=== PATIENT | female | born 1945 | race Caucasian/White ===

== ENCOUNTER → 2017-01-11 | Outpatient (CLI) | payer MEDICARE ==
[2017-01-11 11:30] LABS: Blood Urea Nitrogen 13 mg/dL (7-17); Non-African American GFR(MDRD) >60 (>60 ml/min/1.73 sqM)
--- NOTE | 2017-01-11 13:45 | CT ---
EXAMINATION TYPE: CT facial bones w con DATE OF EXAM: 01/11/2017 COMPARISON: 12/07/2009 HISTORY: 71-year-old female Maxillary pain, sinusitis CT DLP: 599.80 mGycm Automated exposure control for dose reduction was used. TECHNIQUE: Noncontrast axial views of the paranasal sinuses were obtained. Coronal reconstructions pe rformed. FINDINGS: Tiny air-fluid levels in both maxillary sinuses. Trace air fluid in the right sphenoid sinus as well. Otherwise, no significant mucosal thickening within the paranasal sinuses. Reactive bonita- osteogenesis is not seen. There is no destruction of the osseous deluca of the paranasal sinuses. The osteomeatal complexes are patent. Leftward nasal septal deviation. Small bilateral inferior turbinates. The imaged brain and orbits are normal in appearance. Old bilateral nasal bone fractures. Visualized mastoid air cells and middle ear cavities are well pneumatized. Reformatted images confirm above findings. IMPRESSION: 1. Small air-fluid levels in the maxillary sinuses and right sphenoid sinus. Correlate for acute sinu sitis. Otherwise, no significant paranasal sinus disease. 2. Leftward nasal septal deviation. 3. Incidentally, the bilateral inferior turbinates are small.
== END | disposition home or self-care (01) ==
LOC: RADCTMAIN 10:41
PROVIDERS: ATTEND Psychiatry & Neurology Neurology
DX: J34.89 Other specified disorders of nose and nasal sinuses (principal); J34.2 Deviated nasal septum; R68.84 Jaw pain
CPT/HCPCS: 82565; 84520; 70487; 36415; Q9967

== ENCOUNTER → 2017-02-01 | Outpatient (CLI) | payer MEDICARE ==
--- NOTE | 2017-02-05 10:37 | MM ---
Reason for exam: screening (asymptomatic). Last mammogram was performed 1 year ago. History: Patient is postmenopausal and is nulliparous. Reductions of both breasts, 2004. Physical Findings: A clinical breast exam by your physician is recommended on an annual basis and results should be correlated with mammographic findings. MG 3D Screening Mammo W/Cad Bilateral CC and MLO view(s) were taken. Prior study comparison: February 01, 2016, bilateral MG screening mammo w CAD. January 27, 2015, bilateral MG screening mammo w CAD. There are scattered fibroglandular densities. There is no discrete abnormality. No significant changes when compared with prior studies. ASSESSMENT: Negative, BI-RAD 1 RECOMMENDATION: Routine screening mammogram of both breasts in 1 year.
== END | disposition home or self-care (01) ==
LOC: RADMAMWWP 09:35
PROVIDERS: ATTEND Obstetrics & Gynecology
DX: Z12.31 Encounter for screening mammogram for malignant neoplasm of breast (principal)
CPT/HCPCS: 77063; G0202

== ENCOUNTER → 2017-03-23 | Outpatient (CLI) | payer MEDICARE ==
[2017-03-23 10:20] LABS: CH 32.7; CHCM 32.8; HCT 47.2 % (34.0-46.0); HDW 2.33; MCH 31.8 pg (25.0-35.0); MCHC 31.7 g/dL (31.0-37.0); MCV 100.2 fL (80.0-100.0); Mean Platelet Volume 7.7; RBC 4.71 m/uL (3.80-5.40); RDW 13.8 % (11.5-15.5); WBC 4.2 k/uL (3.8-10.6)
== END | disposition home or self-care (01) ==
LOC: LABWHC1 09:44
PROVIDERS: ATTEND Obstetrics & Gynecology
DX: D64.9 Anemia, unspecified (principal)
CPT/HCPCS: 36415; 85027

== ENCOUNTER → 2018-02-07 | Outpatient (CLI) | payer MEDICARE ==
--- NOTE | 2018-02-14 16:16 | MM ---
Reason for exam: screening (asymptomatic). Last mammogram was performed 1 year ago. History: Patient is postmenopausal and is nulliparous. Reductions of both breasts, 2004. MG 3D Screening Mammo W/Cad Bilateral CC and MLO view(s) were taken. XCCL view(s) were taken of the left breast. Prior study comparison: February 01, 2017, bilateral MG 3d screening mammo w/cad. February 01, 2016, bilateral MG screening mammo w CAD. January 27, 2015, bilateral MG screening mammo w CAD. There are scattered fibroglandular densities. There are benign appearing bilateral punctate calcifications. No suspicious abnormality. No significant changes when compared with prior studies. ASSESSMENT: Benign, BI-RAD 2 RECOMMENDATION: Routine screening mammogram of both breasts in 1 year.
== END | disposition home or self-care (01) ==
LOC: RADMAMWWP 10:55
PROVIDERS: ATTEND Obstetrics & Gynecology
DX: Z12.31 Encounter for screening mammogram for malignant neoplasm of breast (principal); Z98.890 Other specified postprocedural states
CPT/HCPCS: 77063; 77067

== ENCOUNTER → 2019-05-01 | Outpatient (CLI) | payer MEDICARE ==
--- NOTE | 2019-05-02 14:29 | MM ---
Reason for exam: screening (asymptomatic). Last mammogram was performed 1 year and 3 months ago. History: Patient is postmenopausal and is nulliparous. Reductions of both breasts, 2004. Physical Findings: A clinical breast exam by your physician is recommended on an annual basis and results should be correlated with mammographic findings. MG 3D Screening Mammo W/Cad Bilateral CC and MLO view(s) were taken. Prior study comparison: February 07, 2018, bilateral MG 3d screening mammo w/cad. February 01, 2017, bilateral MG 3d screening mammo w/cad. There are scattered fibroglandular densities. No suspicious abnormality. No significant changes when compared with prior studies. ASSESSMENT: Negative, BI-RAD 1 RECOMMENDATION: Routine screening mammogram of both breasts in 1 year.
== END | disposition home or self-care (01) ==
LOC: RADMAMWWP 09:13
PROVIDERS: ATTEND Obstetrics & Gynecology
DX: Z12.31 Encounter for screening mammogram for malignant neoplasm of breast (principal)
CPT/HCPCS: 77063; 77067

== ENCOUNTER 2020-04-02 10:00 | Day surgery (SDC) | payer MEDICARE ==
[2020-03-31 09:58] VITALS: BMI 35.2
[~2020-04-02 10:00] MED LIST: LACTATED RINGERS 1,000 ML IV SCH; LIDOCAINE 1% (10MG/ML) FOR IV START INTRADERMA PRN
[2020-04-02 10:45] VITALS: TEMP 98.6
[2020-04-02 11:00] LABS: Glucose,Whole Blood 90 mg/dL (75-99)
[2020-04-02] MEDS ORDERED: PROPOFOL 10 MG/ML 20 ML VIAL IV ONE (12:07)
--- NOTE | 2020-04-02 12:29 | P.PCN ---
Date of Procedure: 04/02/20 Procedure(s) Performed: BRIEF HISTORY: Patient is a 74-year-old pleasant white female scheduled for an elective colonoscopy as a part of evaluation of prior history of colon polyps. Last coloscopy was 5 years ago. PROCEDURE PERFORMED: Colonoscopy with snare polypectomy. PREOPERATIVE DIAGNOSIS: History of colon polyps. IV sedation per Anesthesia. PROCEDURE: After informed consent was obtained, the patient, was brought into the endoscopy unit. IV sedation was administered by Anesthesia under continuous monitoring. Digital rectal examination was normal. Initially the Olympus CF-160 flexible video colonoscope was then inserted in the rectum, gradually advanced into the cecum without any difficulty. Careful examination was performed as the scope was gradually being withdrawn. Ileocecal valve and the appendiceal orifice were visualized and appeared normal. Prep was fair.. Mucosa of the cecum, ascending colon, Appeared normal. In the transverse colon there was a 5 mm polyp removed by snare polypectomy. In the descending colon there was another 5 mm sessile polyp removed by snare polypectomy. Rest of the transverse colon, descending colon, sigmoid colon, and rectum appeared normal. In the proximal rectum there was a 1 cm polyp removed by snare polypectomy.Retroflexion was per formed in the rectum and no lesions were seen. The patient tolerated the procedure well. IMPRESSION: 5 mm transverse colon polyp status post polypectomy 5 millimeters descending colon polyp status post polypectomy 1 cm proximal rectal polyp status post polypectomy RECOMMENDATIONS: Findings of this examination were discussed with the patient as well as her family. She was advised to follow with the biopsy results. If the biopsy shows an adenoma she can have a repeat colonoscopy in 3-5 years.
[2020-04-02 12:45] VITALS: BP 138/72; PULSE 77; RESP 18
== END 2020-04-02 13:27 | disposition home or self-care (01) ==
LOC: ORWHC2ENDO 10:00
PROVIDERS: ATTEND Internal Medicine Gastroenterology
DX: Z12.11 Encounter for screening for malignant neoplasm of colon (principal); D12.4 Benign neoplasm of descending colon; D12.3 Benign neoplasm of transverse colon; D12.8 Benign neoplasm of rectum; E78.5 Hyperlipidemia, unspecified; E07.9 Disorder of thyroid, unspecified; K21.9 Gastro-esophageal reflux disease without esophagitis; Z86.010 Personal history of colon polyps; Z88.0 Allergy status to penicillin; Z88.2 Allergy status to sulfonamides; Z88.1 Allergy status to other antibiotic agents; Z79.899 Other long term (current) drug therapy; Z79.890 Hormone replacement therapy; Z98.890 Other specified postprocedural states; Z90.49 Acquired absence of other specified parts of digestive tract; Z90.89 Acquired absence of other organs
CPT/HCPCS: 88305; 45385; J2704

== ENCOUNTER → 2020-05-21 | Outpatient (CLI) | payer MEDICARE ==
--- NOTE | 2020-05-24 10:32 | MM ---
Reason for exam: screening (asymptomatic). Last mammogram was performed 1 year and 1 month ago. History: Patient is postmenopausal and is nulliparous. Reductions of both breasts, 2004. Physical Findings: A clinical breast exam by your physician is recommended on an annual basis and results should be correlated with mammographic findings. MG 3D Screening Mammo W/Cad Bilateral CC and MLO view(s) were taken. Prior study comparison: May 01, 2019, bilateral MG 3d screening mammo w/cad. February 07, 2018, bilateral MG 3d screening mammo w/cad. There are scattered fibroglandular densities. There is no discrete abnormality. No significant changes when compared with prior studies. ASSESSMENT: Negative, BI-RAD 1 RECOMMENDATION: Routine screening mammogram of both breasts in 1 year.
== END | disposition home or self-care (01) ==
LOC: RADMAMWWP 08:51
PROVIDERS: ATTEND Obstetrics & Gynecology
DX: Z12.31 Encounter for screening mammogram for malignant neoplasm of breast (principal)
CPT/HCPCS: 77063; 77067

== ENCOUNTER → 2020-05-25 | Outpatient (CLI) | payer MEDICARE ==
--- NOTE | 2020-05-25 11:00 | ECHOF ---
Referral Reason:R06.02 SOB R60.9 edema MEASUREMENTS -------- HEIGHT: 160.0 cm WEIGHT: 97.5 kg BP: IVSd: 1.4 cm (0.6 - 1.1) LVIDd: 3.4 cm (3.9 - 5.3) LVPWd: 1.4 cm (0.6 - 1.1) EDV(Teich): 46 ml IVSs: 1.6 cm LVIDs: 2.4 cm LVPWs: 1.7 cm %IVS Thck: 14 % ESV(Teich): 20 ml EF(Teich): 56 % %FS: 29 % SV(Teich): 26 ml LA Diam: 0.9 cm (2.7 - 3.8) RVIDd: 2.1 cm (< 3.3) IVC: 17.24 mm LALs A4C: 4.9 cm LAAs A4C: 15.4 cm LAESV A-L A4C: 41 ml LAESV MOD A4C: 39 ml LALs A2C: 5.0 cm LAAs A2C: 19.2 cm LAESV A-L A2C: 62 ml LAESV MOD A2C: 59 ml LAESV(A-L): 51 ml LAESV Index (A-L): 25.42 ml/m Ao Diam: 2.8 cm (2.0 - 3.7) LA Diam: 3.0 cm (2.7 - 3.8) AV Cusp: 1.8 cm (1.5 - 2.6) EPSS: 2.0 cm MV E Placido: 0.68 m/s MV DecT: 174 ms MV Dec Moca: 3.9 m/s MV A Placido: 0.87 m/s MV E/A Ratio: 0.78 MV PHT: 50 ms MR Vmax: 1.04 m/s MR maxP.35 mmHg AV Vmax: 1.07 m/s AV maxP.56 mmHg TR Vmax: 1.76 m/s TR maxP.38 mmHg RAP: 5.00 mmHg RVSP: 17.38 mmHg MV EF SLOPE: 60.67 mm/s (70 - 150) MV EXCURSION: 11.45 mm (> 18.000) FINDINGS -------- This was a technically adequate study. The left ventricular size is normal. There is moderate concentric left ventricular hypertrophy. O verall left ventricular systolic function is normal with, an EF between 55 - 60 %. The diastolic fi lling pattern is normal for the age of the patient 10.09. The right ventricle is normal in size. The global wall thickness of the right ventricle is mildly e nlarged. The left atrial size is normal. Normal LA size by volume 22+/-6 ml/m2. The right atrial size is normal. The aortic valve is trileaflet and appears structurally normal. The mitral valve is normal. There is trace mitral regurgitation. The tricuspid valve appears structurally normal. Trace tricuspid regurgitation present. Right ck tricular systolic pressure is normal at < 35 mmHg. There is no pulmonic regurgitation present. The aortic root size is normal. Normal inferior vena cava with normal inspiratory collapse consistent with estimated right atrial pre ssure of 5 mmHg. There is a small, generalized pericardial effusion present. CONCLUSIONS -------- 1. The left ventricular size is normal. 2. There is moderate concentric left ventricular hypertrophy. 3. Overall left ventricular systolic function is normal with, an EF between 55 - 60 %. 4. The diastolic filling pattern is normal for the age of the patient 10.09 5. The global wall thickness of the right ventricle is mildly enlarged. 6. There is trace mitral regurgitation. 7. Trace tricuspid regurgitation present. 8. There is a small, generalized pericardial effusion present. B[employer]LEY MANAGER: Dyana Montenegro, [facility]
--- NOTE | 2020-05-25 13:19 | XR ---
EXAMINATION TYPE: XR chest 2V DATE OF EXAM: 05/25/2020 COMPARISON: 12/05/2014 HISTORY: 75-year-old female shortness of breath TECHNIQUE: PA and lateral views FINDINGS: The cardiomediastinal silhouette and pulmonary vasculature are within normal limits. Mild tortuosity of the thoracic aorta. Some strandy atelectasis of the left base. No consolidation or pleural effusio n. Accentuated midthoracic kyphosis. Moderate degenerative disc disease midthoracic spine. IMPRESSION: Strandy left basilar areas of atelectasis. No acute process otherwise seen.
== END | disposition home or self-care (01) ==
LOC: RADECHMAIN 07:56
PROVIDERS: ATTEND Family Medicine
DX: I31.3 Pericardial effusion (noninflammatory) (principal); I51.7 Cardiomegaly; J98.11 Atelectasis
CPT/HCPCS: 71046; 93306

== ENCOUNTER → 2020-08-13 | Outpatient (CLI) | payer MEDICARE ==
--- NOTE | 2020-08-13 15:45 | CT ---
CT CHEST FOR PULMONARY EMBOLISM. EXAMINATION TYPE: CT angio chest DATE OF EXAM: 08/13/2020 INDICATION: Dyspnea upon exertion. CT DLP: 463.8 mGycm, Automated exposure control for dose reduction was used. CONTRAST: Patient injected with 80ml mL of Isovue 370. COMPARISON: None TECHNIQUE: CT of the chest is performed on a spiral scan at 2 mm thick sections. Study is performed with intravenous contrast timed for evaluation for pulmonary embolism. This will limit additional po rtions of the evaluation. 3-D MIP images reconstructed by the technologist are reviewed on the compu ter in the coronal and sagittal planes. FINDINGS: No persistent filling defects are evident to suggest an acute pulmonary embolism. No mediastinal or hilar adenopathy enlarged by CT criteria is evident. The ascending aorta diameter at the level of the main pulmonary artery is 3.4 cm. The main pulmonary artery diameter at the bifur cation is 2.7 cm. Minimal streak atelectasis may be within the posterior right lung base. Limited CT section through the upper abdomen are unremarkable. IMPRESSIONS: 1. No acute pulmonary embolism.
== END | disposition home or self-care (01) ==
LOC: RADCTMAIN 14:41
PROVIDERS: ATTEND Internal Medicine
DX: R06.09 Other forms of dyspnea (principal)
CPT/HCPCS: 82565; 84520; 71275; 36415; Q9967

== ENCOUNTER → 2021-05-23 | Outpatient (CLI) | payer MEDICARE ==
--- NOTE | 2021-05-23 20:42 | BD ---
EXAMINATION TYPE: Axial Bone Density DATE OF EXAM: 05/23/2021 COMPARISON: NONE CLINICAL HISTORY:osteopenia Height: 5'2 1/2 Weight: 212 FRAX RISK QUESTIONS: Family History (Parent hip fracture): y Secondary Osteoporosis: RISK FACTORS HISTORY OF: Family History of Osteoporosis: y Postmenopausal woman: y MEDICATIONS: Prednisone or other steroids: How Long: Thyroid Medications: Which medication: Levothyroxine How Lon years Osteoporosis Medications: Which medication: How Long: Additional Medications: Additional History: EXAM MEASUREMENTS: Bone mineral densitometry was performed using the readeo System. Bone mineral density as measured about the Lumbar spine is: ----- L1-L4(G/cm2): 1.196 T Score Values are as follows: ----- L2: 0.3 ----- L3: 0.0 ----- L4: -0.6 ----- L1-L4: 0.1 Bone mineral density about the R hip (g/cm2): 0.771 Bone mineral density about the L hip (g/cm2): 0.771 T Score values are as follows: -----R Neck: -1.9 -----L Neck: -1.9 -----R Total: -1.1 -----L Total: -1.4 IMPRESSION: Osteopenia (T Score between -2.5 and -1). There is slightly increased risk of fracture and the patient may be considered for treatment. Re-Screen 2-5 years. NOTE: T-SCORE=SD OF THE YOUNG ADULT MEAN.
--- NOTE | 2021-05-24 14:19 | MM ---
Reason for exam: screening (asymptomatic). Last mammogram was performed 1 year ago. History: Patient is postmenopausal and is nulliparous. Reductions of both breasts, 2004. Physical Findings: A clinical breast exam by your physician is recommended on an annual basis and results should be correlated with mammographic findings. MG 3D Screening Mammo W/Cad Bilateral CC and MLO view(s) were taken. Prior study comparison: May 21, 2020, bilateral MG 3d screening mammo w/cad. May 01, 2019, bilateral MG 3d screening mammo w/cad. There are scattered fibroglandular densities. There are benign appearing round calcifications bilaterally. There is no discrete abnormality. ASSESSMENT: Benign, BI-RAD 2 RECOMMENDATION: Routine screening mammogram of both breasts in 1 year.
== END | disposition home or self-care (01) ==
LOC: RADMAMWWP 12:33
PROVIDERS: ATTEND Obstetrics & Gynecology
DX: Z12.31 Encounter for screening mammogram for malignant neoplasm of breast (principal); Z78.0 Asymptomatic menopausal state; R92.1 Mammographic calcification found on diagnostic imaging of breast; M85.88 Other specified disorders of bone density and structure, other site
CPT/HCPCS: 77063; 77067; 77080

== ENCOUNTER → 2022-05-24 | Outpatient (CLI) | payer MEDICARE ==
--- NOTE | 2022-05-24 16:06 | MM ---
Reason for Exam: Screening (asymptomatic). Last screening mammogram was performed 12 month(s) ago. Patient History: Menarche at age 15. Patient has no children. Postmenopausal. 2003, Bilateral Reduction. Risk Values: Ayde 5 year model risk: 2.0%. NCI Lifetime model risk: 4.2%. Prior Study Comparison: 05/01/2019 Bilateral Screening Mammogram, [facility]. 05/21/2020 Bilateral Screening Mammogram, [facility]. 05/23/2021 Bilateral Screening Mammogram, [facility]. Tissue Density: The breast tissue is almost entirely fat. Findings: Analyzed By CAD. There is no suspicious group of microcalcifications or new suspicious mass in either breast. Overall Assessment: Negative, BI-RAD 1 Management: Screening Mammogram of both breasts in 1 year. A clinical breast exam by your physician is recommended on an annual basis and results should be correlated with mammographic findings. [facility] will attempt to contact patient to return for supplemental views and ultrasound if indicated. Electronically signed and approved by: Valeriy Arango DO
== END | disposition home or self-care (01) ==
LOC: RADMAMWWP 08:50
PROVIDERS: ATTEND Obstetrics & Gynecology
DX: Z12.31 Encounter for screening mammogram for malignant neoplasm of breast (principal); Z78.0 Asymptomatic menopausal state
CPT/HCPCS: 77063; 77067

== ENCOUNTER → 2023-05-25 | Outpatient (CLI) | payer MEDICARE ==
--- NOTE | 2023-05-28 07:53 | MM ---
Reason for Exam: Screening (asymptomatic). Last screening mammogram was performed 12 month(s) ago. Patient History: Menarche at age 15. Patient has no children. Postmenopausal. 2003, Bilateral Reduction. Risk Values: Ayde 5 year model risk: 2.0%. NCI Lifetime model risk: 4.0%. Prior Study Comparison: 05/21/2020 Bilateral Screening Mammogram, [facility]. 05/23/2021 Bilateral Screening Mammogram, [facility]. 05/24/2022 Bilateral MG 3D screening mammo w/cad, [facility]. Tissue Density: There are scattered fibroglandular densities. Findings: Analyzed By CAD. There is no suspicious group of microcalcifications or new suspicious mass. Overall Assessment: Negative, BI-RAD 1 Management: Screening Mammogram of both breasts in [address] [facility] will attempt to contact patient to return for supplemental views and ultrasound if indicated. Patient should continue monthly self-breast exams. A clinical breast exam by your physician is recommended on an annual basis. This exam should not preclude additional follow-up of suspicious palpable abnormalities. Note on Ayde scores and lifetime risk: 1. A Ayde score greater than 3% is considered moderate risk. If this is the case, consider specialist referral to assess eligibility for a risk reducing agent. 2. If overall lifetime risk for the development of breast cancer is 20% or higher, the patient may qualify for future screening with alternating mammogram and breast MRI. Electronically signed and approved by: Valeriy Arango DO
== END | disposition home or self-care (01) ==
LOC: RADMAMWWP 09:58
PROVIDERS: ATTEND Obstetrics & Gynecology
DX: Z12.31 Encounter for screening mammogram for malignant neoplasm of breast (principal); Z78.0 Asymptomatic menopausal state
CPT/HCPCS: 77063; 77067

== ENCOUNTER → 2023-09-05 | Outpatient (CLI) | payer MEDICARE ==
--- NOTE | 2023-09-05 17:35 | CA ---
Transthoracic Echo Report Name: Mee Cohen Age: 78 Gender: F : 1945 Exam Date: 09/05/2023 13:59 Exam Location: [facility] Ht (in): 63 Wt (lb): 233 Ordering Physician: Bri Steele MD Attending/Referring Phys: Bri Steele MD Facilities Manager Kiela Amanda RDCS Procedure CPT: Indications: I26.94 PULM EMBO WO ACUTE I27.23 PULM HTSN LUNG DI Cardiac Hx: Technical Quality: Fair Contrast 1: Total Dose (mL): Contrast 2: Total Dose (mL): MEASUREMENTS (Male / Female) Normal Values 2D ECHO LV Diastolic Diameter PLAX 3.0 cm 4.2 - 5.9 / 3.9 - 5.3 cm LV Systolic Diameter PLAX 2.1 cm IVS Diastolic Thickness 1.4 cm 0.6 - 1.0 / 0.6 - 0.9 cm LVPW Diastolic Thickness 1.8 cm 0.6 - 1.0 / 0.6 - 0.9 cm LV Relative Wall Thickness 1.0 RV Internal Dim ED PLAX 3.5 cm LA Volume 63.0 cm??? 18 - 58 / 22 - 52 cm??? LA Volume Index 28.3 cm???/m??? 16 - 28 cm???/m??? M-MODE Aortic Root Diameter MM 3.4 cm LA Systolic Diameter MM 4.2 cm LA Ao Ratio MM 1.2 AV Cusp Separation MM 1.7 cm DOPPLER AV Peak Velocity 124.4 cm/s AV Peak Gradient 6.2 mmHg AV Mean Velocity 92.9 cm/s AV Mean Gradient 3.7 mmHg AV Velocity Time Integral 24.1 cm LVOT Peak Velocity 100.4 cm/s LVOT Peak Gradient 4.0 mmHg LVOT Velocity Time Integral 19.4 cm MV Area PHT 3.1 cm??? Mitral E Point Velocity 67.1 cm/s Mitral A Point Velocity 91.7 cm/s Mitral E to A Ratio 0.7 MV Deceleration Time 242.1 ms MV E' Velocity 5.9 cm/s Mitral E to MV E' Ratio 11.3 TR Peak Velocity 146.6 cm/s TR Peak Gradient 8.6 mmHg Right Ventricular Systolic Press 13.6 mmHg FINDINGS Left Ventricle Moderately increased left ventricular wall thickness. Left ventricular cavity size normal. Normal left ventricular systolic function with no obvious regional wall motion abnormalities. Left ventricular ejection fraction is estimated at 55-60 %. Right Ventricle Mild right ventricular dilatation. Normal right ventricular global systolic function. Right ventricular systolic pressure within normal limits. Right Atrium Normal right atrial size. Left Atrium Moderately increased left atrial volume. Mildly increased left atrial area. Mitral Valve Structurally normal mitral valve. No mitral stenosis, regurgitation or prolapse. Aortic Valve Trileaflet aortic valve. No aortic valve stenosis or regurgitation. Tricuspid Valve Structurally normal tricuspid valve. Mild tricuspid regurgitation. Pulmonic Valve Structurally normal pulmonic valve. Pericardium No pericardial effusion. Echo free space anterior to the right ventricle likely represents a fat pad. Aorta Normal size aortic root and proximal ascending aorta. CONCLUSIONS Normal LV function Mildly dilated right ventricle Previewed by: Dr. Jay Onofre MD (Electronically Signed) Final Date: 05 September 2023 17:34
== END | disposition home or self-care (01) ==
LOC: RADECHMAIN 13:47
PROVIDERS: ATTEND Family Medicine
DX: I51.7 Cardiomegaly (principal); I26.94 Multiple subsegmental thrombotic pulmonary emboli without acute cor pulmonale; I27.23 Pulmonary hypertension due to lung diseases and hypoxia
CPT/HCPCS: 93306

== ENCOUNTER 2023-10-05 11:49 | Day surgery (SDC) | payer MEDICARE ==
[2023-10-03 09:56] VITALS: BMI 43.3
[2023-10-05] MEDS ORDERED: LIDOCAINE 1% (10MG/ML) FOR IV START INTRADERMA PRN (13:33)
[2023-10-05] MEDS: LACTATED RINGERS 1,000 ML IV SCH (14:01)
[2023-10-05 14:14] VITALS: TEMP 97.6
[2023-10-05] MEDS ORDERED: PROPOFOL 10 MG/ML 20 ML VIAL IV ONE (14:17)
--- NOTE | 2023-10-05 14:36 | P.PCN ---
Date of Procedure: 10/05/23 Procedure(s) Performed: BRIEF HISTORY: Patient is a 78-year-old pleasant White female scheduled for an elective colonoscopy as a part of History of colon polyps. PROCEDURE PERFORMED: Colonoscopy with snare polypectomy. PREOPERATIVE DIAGNOSIS: History of colon polyps IV sedation per Anesthesia. PROCEDURE: After informed consent was obtained, the patient, was brought into the endoscopy unit. IV sedation was administered by Anesthesia under continuous monitoring. Digital rectal examination was normal. Initially the Olympus CF-160 flexible video colonoscope was then inserted in the rectum, gradually advanced into the cecum without any difficulty. Careful examination was performed as the scope was gradually being withdrawn. Ileocecal valve and the appendiceal orifice were visualized and appeared normal. Prep was excellent. Mucosa of the cecum, ascending colon, Appeared normal. In the hepatic flexure there was a 7 mm polyp removed by cold snare polypectomy. In the descending colon there were 2 polyps measuring 5 mm in size removed by cold snare polypectomy. Rest of thetransverse colon, descending colon, sigmoid colon, and rectum appeared normal.In the proximal rectum there was a 3 mm polyp that was removed by cold snare polypectomy.Scattered left sided diverticulosis. Retroflexion was performed in the rectum and no lesions were seen. The patient tolerated the procedure well. IMPRESSION: 7 mm hepatic flexure polyp status post cold snare polypectomy 5 mm 2 ascending colon polyp status post cold snare polypectomy 4 mm proximal rectal polyp status post polypectomy Scattered sigmoid diverticulosis RECOMMENDATIONS: Findings of this examination were discussed with the patient As well as his family.She was advised to follow with the biopsy results. If the biopsies reveale adenoma she can have a repeat colonoscopy in 3 years.
[2023-10-05 15:33] VITALS: BP 114/72; PULSE 78; RESP 18
== END 2023-10-05 15:35 | disposition home or self-care (01) ==
LOC: ORWHC2ENDO 11:49
PROVIDERS: ATTEND Internal Medicine Gastroenterology
DX: Z12.11 Encounter for screening for malignant neoplasm of colon (principal); D12.8 Benign neoplasm of rectum; D12.3 Benign neoplasm of transverse colon; D12.4 Benign neoplasm of descending colon; K57.30 Diverticulosis of large intestine without perforation or abscess without bleeding; E78.5 Hyperlipidemia, unspecified; J44.9 Chronic obstructive pulmonary disease, unspecified; G47.33 Obstructive sleep apnea (adult) (pediatric); E03.9 Hypothyroidism, unspecified; K21.9 Gastro-esophageal reflux disease without esophagitis; I26.99 Other pulmonary embolism without acute cor pulmonale; Z88.1 Allergy status to other antibiotic agents; Z88.0 Allergy status to penicillin; Z86.010 Personal history of colon polyps; Z79.899 Other long term (current) drug therapy; Z79.01 Long term (current) use of anticoagulants; Z79.890 Hormone replacement therapy; Z79.51 Long term (current) use of inhaled steroids
CPT/HCPCS: 88305; 45385; J2704

== ENCOUNTER 2023-12-07 05:37 | Emergency (ER) | payer MEDICARE ==
[2023-12-07 05:44] VITALS: TEMP 97.4
--- NOTE | 2023-12-07 06:47 | ED ---
Abdominal Pain HPI - General Chief Complaint: Abdominal Pain Stated Complaint: abd pain Time Seen by Provider: 12/07/23 05:58 Source: patient, RN notes reviewed Mode of arrival: ambulatory Limitations: no limitations - History of Present Illness Initial Comments: 78-year-old female presents emergency department complaint of abdominal discomfort. Patient states that she had some discomfort and noticed there was a bulge in her umbilical region. Patient states that she had no trauma she states she did have nausea which is resolved no change in bowel habits. Patient states she does have urinary frequency which is unusual for the patient. Patient denies any fevers no back pain no flank pain. Patient denies any chest pain. - Related Data Home Medications Medication Instructions Recorded Confirmed Montelukast [Singulair] 10 mg PO HS 12/05/14 10/05/23 Multivitamins, Thera [Multivitamin 1 tab PO DAILY 12/05/14 10/03/23 (formulary)] Simvastatin [Zocor] 20 mg PO HS 12/05/14 10/05/23 Zolpidem [Ambien] 10 mg PO HS 12/05/14 10/05/23 Levothyroxine Sodium [Synthroid] 50 mcg PO QAM 03/31/20 10/03/23 Calcium Carbonate [Calcium] 1,200 mg PO DAILY 08/18/22 10/03/23 Cetirizine HCl [Zyrtec] 10 mg PO DAILY 08/18/22 10/05/23 Cholecalciferol [Vitamin D3 (25 50 mcg PO DAILY 08/18/22 10/03/23 Mcg = 1000 Iu)] Liothyronine Sodium [Cytomel] 5 mcg PO DAILY@1500 08/18/22 10/05/23 Liothyronine Sodium [Cytomel] 10 mcg PO QAM 08/18/22 10/05/23 cycloSPORINE 0.05% OPHTH SOLN 1 applicator BOTH EYES Q12H 08/18/22 10/03/23 [Restasis] guaiFENesin [Mucinex] 600 mg PO Q12H 08/18/22 10/05/23 Apixaban [Eliquis] 5 mg PO BID 10/03/23 10/03/23 Previous Rx's Medication Instructions Recorded Famotidine [Pepcid] 20 mg PO BID #60 tablet 08/21/22 Allergies Allergy/AdvReac Type Severity Reaction Status Date / Time levofloxacin [From Levaquin] Allergy Swelling Verified 12/07/23 05:38 moxifloxacin HCl Allergy Swelling Verified 12/07/23 05:38 [From Avelox] Sulfa (Sulfonamide Allergy Swelling Verified 12/07/23 05:38 Antibiotics) Review of Systems ROS Statement: Those systems with pertinent positive or pertinent negative responses have been documented in the HPI. ROS Other: All systems not noted in ROS Statement are negative. Past Medical History Past Medical History: Deep Vein Thrombosis (DVT), GERD/Reflux, Hyperlipidemia, Pulmonary Embolus (PE), Thyroid Disorder, Vascular Disorder Additional Past Medical History / Comment(s): Hx colon polyps. Hx PE bilateral lungs 2022. Possible Sleep Apnea. History of Any Multi-Drug Resistant Organisms: None Reported Past Surgical History: Orthopedic Surgery Additional Past Surgical History / Comment(s): Face lift, bilateral knee - torn meniscus repair, bilateral thumb tendons replaced, colonoscopy. Past Anesthesia/Blood Transfusion Reactions: Motion Sickness, Postoperative Nausea & Vomiting (PONV) Additional Past Anesthesia/Blood Transfusion Reaction / Comment(s): No hx blood transfusion. Past Psychological History: No Psychological Hx Reported Smoking Status: Never smoker Past Alcohol Use History: None Reported Past Drug Use History: None Reported - Past Family History Mother Family Medical History: Deep Vein Thrombosis (DVT) Father Family Medical History: Cancer, Deep Vein Thrombosis (DVT) General Exam Limitations: no limitations General appearance: alert, in no apparent distress Head exam: Present: atraumatic, normocephalic, normal inspection Eye exam: Present: normal appearance, PERRL, EOMI. Absent: scleral icterus, conjunctival injection, periorbital swelling ENT exam: Present: normal exam, mucous membranes moist Neck exam: Present: normal inspection, full ROM. Absent: tenderness, meningismus, lymphadenopathy Respiratory exam: Present: normal lung sounds bilaterally. Absent: respiratory distress, wheezes, rales, rhonchi, stridor Cardiovascular Exam: Present: regular rate, normal rhythm, normal heart sounds. Absent: systolic murmur, diastolic murmur, rubs, gallop, clicks Course Vital Signs 12/07/23 12/07/23 05:40 07:43 Temperature 97.4 F L Pulse Rate 78 74 Respiratory 22 17 Rate Blood Pressure 155/87 147/79 O2 Sat by Pulse 95 98 Oximetry Medical Decision Making - Medical Decision Making Was pt. sent in by a medical professional or institution (JESUS Dinh, REGISTERED RESPIRATORY TECHNICIAN, urgent care, hospital, or [facility]...) When possible be specific @ -No Did you speak to anyone other than the patient for history (EMS, parent, family, police, friend...)? What history was obtained from this source @ -No Did you review nursing and triage notes (agree or disagree)? Why? @ -I reviewed and agree with nursing and triage notes Were old charts reviewed (outside hosp., previous admission, EMS record, old EKG, old radiological studies, urgent care reports/EKG's, [facility] records)? Report findings @ -No old charts were reviewed Differential Diagnosis (chest pain, altered mental status, abdominal pain women, abdominal pain men, vaginal bleeding, weakness, fever, dyspnea, syncope, headache, dizziness, GI bleed, back pain, seizure, CVA, palpatations, mental health, musculoskeletal)? @ -Differential Abdominal Pain Women: Appendicitis, Cholecystitis, diverticulosis, ischemic bowel, pancreatitis, hepatitis, UTI, gastroenteritis, AAA, incarcerated hernia, bowel obstruction, constipation, inflammatory bowel, hepatitis, peptic ulcer disease, splenic infarction, perforated viscus, vulvitis, ovarian torsion, PID, kidney stone, placenta abruption, this is not meant to be an all-inclusive list EKG interpreted by me (3pts min.). @ -None X-rays interpreted by me (1pt min.). @ -None done CT interpreted by me (1pt min.). @ -None done U/S interpreted by me (1pt. min.). @ -None done What testing was considered but not performed or refused? (CT, X-rays, U/S, labs)? Why? @ -Considered CT though patient has reducible hernia without tenderness What meds were considered but not given or refused? Why? @ -None Did you discuss the management of the patient with other professionals (professionals i.e. JESUS Dinh, REGISTERED RESPIRATORY TECHNICIAN, lab, RT, psych nurse, community mental health social worker, land sales agent, t eacher, medical corps officer, case loader operator)? Give summary @ -No Was smoking cessation discussed for >3mins.? @ -No Was critical care preformed (if so, how long)? @ -No Were there social determinants of health that impacted care today? How? (Homelessness, low income, unemployed, alcoholism, drug addiction, transportation, low edu. Level, literacy, decrease access to med. care, longterm, rehab)? @ -No Was there de-escalation of care discussed even if they declined (Discuss DNR or withdrawal of care, Hospice)? DNR status @ -No What co-morbidities impacted this encounter? (DM, HTN, Smoking, COPD, CAD, Cance r, CVA, ARF, Chemo, Hep., AIDS, mental health diagnosis, sleep apnea, morbid obesity)? @ -None Was patient admitted / discharged? Hospital course, mention meds given and route, prescriptions, significant lab abnormalities, going to OR and other pertinent info. @ -Discharged patient has a reducible umbilical hernia will follow-up with general surgery patient was complaining urinary frequency urinalysis unremarkable patient vitals are stable she states she has no complaints at this time. Undiagnosed new problem with uncertain prognosis? @ -No Drug Therapy requiring intensive monitoring for toxicity (Heparin, Nitro, Insulin, Cardizem)? @ -No Were any procedures done? @ -No Diagnosis/symptom? @ -Umbilical hernia Acute, or Chronic, or Acute on Chronic? @ -Acute Uncomplicated (without systemic symptoms) or Complicated (systemic symptoms)? @ -Uncomplicated Side effects of treatment? @ -No Exacerbation, Progression, or Severe Exacerbation? @ -No Poses a threat to life or bodily function? How? (Chest pain, [place], [place], pneumonia, PE, COPD, DKA, ARF, appy, cholecystitis, CVA, Diverticulitis, Homicidal, Suicidal, threat to staff... and all critical care pts) @ -No - Lab Data Lab Results 12/07/23 Range/Units 06:28 Urine Color Light Yellow Urine Appearance Clear (Clear) Urine pH 6.5 (5.0-8.0) Ur Specific [place] 1.015 (1.001-1.035) Urine Protein Negative (Negative) Urine Glucose (UA) Negative (Negative) Urine Ketones Negative (Negative) Urine Blood Negative (Negative) Urine Nitrite Negative (Negative) Urine Bilirubin Negative (Negative) Urine Urobilinogen <2.0 (<2.0) mg/dL Ur Leukocyte Esterase Negative (Negative) Disposition Clinical Impression: Umbilical hernia Disposition: HOME SELF-CARE Condition: Stable Instructions (If sedation given, give patient instructions): Umbilical Hernia (ED) Additional Instructions: Please return to the Emergency Department if symptoms worsen or any other concerns. Is patient prescribed a controlled substance at d/c from ED?: No Referrals: Bri Steele MD [Primary Care Provider] - 1-2 days Kulwant Steele MD [Medical Doctor] - 1-2 days Time of Disposition: 07:20
[2023-12-07 07:10] LABS: Appearance,Urine Clear (Clear); Bilirubin,Urine Negative (Negative); Blood,Urine Negative (Negative); Color,Urine Light Yellow; Glucose,Urine (UA) Negative (Negative); Ketones,Urine Negative (Negative); Leukocyte Esterase,Urine Negative (Negative); Nitrite,Urine Negative (Negative); PH, Urine 6.5 (5.0-8.0); Protein,Urine Negative (Negative); Specific Gravity,Urine 1.015 (1.001-1.035); Urobilinogen,Urine <2.0 mg/dL (<2.0)
[2023-12-07 07:44] VITALS: BP 147/79; PULSE 74; RESP 17
== END 2023-12-07 07:47 | disposition home or self-care (01) ==
LOC: EC 05:37
DX: K42.9 Umbilical hernia without obstruction or gangrene (principal); Z88.1 Allergy status to other antibiotic agents; Z88.2 Allergy status to sulfonamides
CPT/HCPCS: 81003; 99284

== ENCOUNTER 2024-02-02 11:54 | Emergency (ER) | payer MEDICARE ==
[2024-02-02 12:04] VITALS: PULSE 85; RESP 20; TEMP 98.2
--- NOTE | 2024-02-02 12:04 | ED ---
Back Pain HPI - General Chief Complaint: Back Pain/Injury Stated Complaint: back pain Time Seen by Provider: 02/02/24 11:55 Source: patient, RN notes reviewed Mode of arrival: EMS Limitations: no limitations - History of Present Illness Initial Comments: This is a 78 year old female who presents to the emergency department for back pain. 4 days ago she had umbilical hernia surgery at [facility]. Later on that day she started to develop pain in the left mid to lower back. Pain has since persisted. She has radiation of pain down the left leg as well. Denies any radiation of pain into the abdomen, nausea, or vomiting. Currently taking Myrtle and Robaxin, however this is not managing this pain. Denies any loss of bowel/bladder control or saddle anesthesia. Wonders if she may have slept wrong following the surgery causing this pain. MD Complaint: back pain - Related Data Home Medications Medication Instructions Recorded Confirmed Montelukast [Singulair] 10 mg PO HS 12/05/14 10/05/23 Multivitamins, Thera [Multivitamin 1 tab PO DAILY 12/05/14 10/03/23 (formulary)] Simvastatin [Zocor] 20 mg PO HS 12/05/14 10/05/23 Zolpidem [Ambien] 10 mg PO HS 12/05/14 10/05/23 Levothyroxine Sodium [Synthroid] 50 mcg PO QAM 03/31/20 10/03/23 Calcium Carbonate [Calcium] 1,200 mg PO DAILY 08/18/22 10/03/23 Cetirizine HCl [Zyrtec] 10 mg PO DAILY 08/18/22 10/05/23 Cholecalciferol [Vitamin D3 (25 50 mcg PO DAILY 08/18/22 10/03/23 Mcg = 1000 Iu)] Liothyronine Sodium [Cytomel] 5 mcg PO DAILY@1500 08/18/22 10/05/23 Liothyronine Sodium [Cytomel] 10 mcg PO QAM 08/18/22 10/05/23 cycloSPORINE 0.05% OPHTH SOLN 1 applicator BOTH EYES Q12H 08/18/22 10/03/23 [Restasis] guaiFENesin [Mucinex] 600 mg PO Q12H 08/18/22 10/05/23 Apixaban [Eliquis] 5 mg PO BID 10/03/23 10/03/23 Previous Rx's Medication Instructions Recorded Famotidine [Pepcid] 20 mg PO BID #60 tablet 08/21/22 Lidocaine 5% Patch [Lidoderm 5% 1 patch TOPICAL DAILY PRN #30 patch 02/02/24 Patch] Meloxicam [Mobic] 15 mg PO DAILY PRN #20 tab 02/02/24 Allergies Allergy/AdvReac Type Severity Reaction Status Date / Time levofloxacin [From Levaquin] Allergy Swelling Verified 02/02/24 12:04 moxifloxacin HCl Allergy Swelling Verified 02/02/24 12:04 [From Avelox] Sulfa (Sulfonamide Allergy Swelling Verified 02/02/24 12:04 Antibiotics) Review of Systems ROS Statement: Those systems with pertinent positive or pertinent negative responses have been documented in the HPI. ROS Other: All systems not noted in ROS Statement are negative. Past Medical History Past Medical History: Deep Vein Thrombosis (DVT), GERD/Reflux, Hyperlipidemia, Pulmonary Embolus (PE), Thyroid Disorder, Vascular Disorder Additional Past Medical History / Comment(s): Hx colon polyps. Hx PE bilateral lungs 2022. Possible Sleep Apnea. History of Any Multi-Drug Resistant Organisms: None Reported Past Surgical History: Orthopedic Surgery Additional Past Surgical History / Comment(s): Face lift, bilateral knee - torn meniscus repair, bilateral thumb tendons replaced, colonoscopy. Past Anesthesia/Blood Transfusion Reactions: Motion Sickness, Postoperative Nausea & Vomiting (PONV) Additional Past Anesthesia/Blood Transfusion Reaction / Comment(s): No hx blood transfusion. Past Psychological History: No Psychological Hx Reported Smoking Status: Never smoker Past Alcohol Use History: None Reported Past Drug Use History: None Reported - Past Family History Mother Family Medical History: Deep Vein Thrombosis (DVT) Father Family Medical History: Cancer, Deep Vein Thrombosis (DVT) General Exam General appearance: alert, in distress Head exam: Present: atraumatic, normocephalic, normal inspection Respiratory exam: Present: normal lung sounds bilaterally. Absent: respiratory distress, wheezes, rales, rhonchi, stridor Cardiovascular Exam: Present: regular rate, normal rhythm, normal heart sounds. Absent: systolic murmur, diastolic murmur, rubs, gallop, clicks GI/Abdominal exam: Present: other (Abdominal incisions appear to be well-healing without any evidence of erythema or drainage to suggest infection) Back exam: Present: other (Tenderness to palpation over the left lower back.) Neurological exam: Present: alert, oriented X3, CN II-XII intact Psychiatric exam: Present: normal affect, normal mood Skin exam: Present: warm, dry, intact, normal color. Absent: rash Course Vital Signs 02/02/24 02/02/24 12:00 16:57 Temperature 98.2 F Pulse Rate 85 85 Respiratory 20 20 Rate Blood Pressure 151/79 156/74 O2 Sat by Pulse 95 98 Oximetry Medical Decision Making - Medical Decision Making This is a 78 year old female who presents to the emergency department for back pain. Was pt. sent in by a medical professional or institution? @ -No Did you speak to anyone other than the patient for history? @ -No Did you review nursing and triage notes? @ -Yes, and I agree, it is accurate with regards to the patient's symptoms. Were old charts reviewed? @ -No Differential Diagnosis? @ -Differential Back Pain: Strain, zoster, cauda equina syndrome, epidural abscess, vertebral osteomyelitis, discitis, fracture, subluxation, disc herniation, DJD, spinal stenosis, dissection, AAA, pancreatitis, peptic ulcer disease, pyelonephritis, kidney stone, this is not meant to be an all-inclusive list. EKG interpreted by me (3pts min.)? @ -Not obtained X-rays interpreted by me (1pt min.)? @ -Not obtained CT interpreted by me (1pt min.)? @ -CT scan of the abdomen and pelvis obtained. My interpretation identifies no evidence of a ureteral calculus. U/S interpreted by me (1pt. min.)? @ -Not obtained What testing was considered but not performed? (CT, X-rays, U/S, labs)? Why? @ -None What meds were considered but not given? Why? @ -None Did you discuss the management of the patient with other professionals? @ -No Did you reconcile home meds? @ -No Was smoking cessation discussed for >3mins.? @ -No Was critical care preformed (if so, how long)? @ -No Were there social determinants of health that impacted care today? How? (Homelessness, low income, unemployed, alcoholism, drug addiction, trans portation, low edu. Level, literacy, decrease access to med. care, [place] [facility], rehab)? @ -No Was there de-escalation of care discussed even if they declined? (Discuss DNR or withdrawal of care, Hospice)? @ -No What co-morbidities impacted this encounter? (DM, HTN, Smoking, COPD, CAD, Cancer, CVA, Hep., AIDS, mental health diagnosis, sleep apnea, morbid obesity)? @ -None Was patient admitted / discharged? @ -Discharged. Lab work unremarkable. Urinalysis has a few white blood cells present but is not otherwise suggestive of infection. CT scan of the abdomen and pelvis reveals no evidence of a ureteral calculus. There are scattered foci of air throughout the anterior abdominal subcutaneous fat and soft tissue stranding at the umbilicus. Patient just had surgery for an umbilical hernia a few days ago, likely accounting for these changes. Incisions appear to be healing well without any evidence for infection. Patient denies any pain over the incisions. Given that pain was much worse with movement, advised that this is likely musculoskeletal in nature. Symptoms were controlled in the emergency department. Patient was well-appearing and ordered pizza for delivery while she was in the emergency department as well. Rx for Mobic and lidocaine patches provided. Patient discharged home stable condition. Case discussed with ED attending Dr. Fierro. Return precautions reviewed in depth, the patient is instructed to return to the emergency department with any new, worsening, or concerning symptoms. Patient verbalized understanding. Undiagnosed new problem with uncertain prognosis? @ -None Drug Therapy requiring intensive monitoring for toxicity (Heparin, Nitro, Insulin, Cardizem)? @ -None Were any procedures done? @ -None Diagnosis/symptom? @ -Lumbar strain, lumbar radiculopathy Acute, or Chronic, or Acute on Chronic? @ -Acute Uncomplicated (without systemic symptoms) or Complicated (systemic symptoms)? @ -Uncomplicated Side effects of treatment? @ -None Exacerbation, Progression, or Severe Exacerbation] @ -Not applicable Poses a threat to life or bodily function? @ -No - Lab Data Result diagrams: 02/02/24 12:16 02/02/24 12:16 Lab Results 02/02/24 02/02/24 02/02/24 Range/Units 12:16 12:16 12:16 WBC 7.7 (3.8-10.6) k/uL RBC 4.02 (3.80-5.40) m/uL Hgb 13.4 (11.4-16.0) gm/dL Hct 41.3 (34.0-46.0) % MCV 102.5 H (80.0-100.0) fL MCH 33.4 (25.0-35.0) pg MCHC 32.6 (31.0-37.0) g/dL RDW 13.8 (11.5-15.5) % Plt Count 250 (150-450) k/uL MPV 7.0 Neutrophils % 80 % Lymphocytes % 11 % Monocytes % 5 % Eosinophils % 4 % Basophils % 0 % Neutrophils # 6.2 (1.3-7.7) k/uL Lymphocytes # 0.8 L (1.0-4.8) k/uL Monocytes # 0.4 (0-1.0) k/uL Eosinophils # 0.3 (0-0.7) k/uL Basophils # 0.0 (0-0.2) k/uL Hypochromasia Slight Macrocytosis Slight Sodium 136 L (137-145) mmol/L Potassium 4.1 (3.5-5.1) mmol/L Chloride 105 (98-107) mmol/L Carbon Dioxide 30 (22-30) mmol/L Anion Gap 1 mmol/L BUN 12 (7-17) mg/dL Creatinine 0.63 (0.52-1.04) mg/dL Est GFR (CKD-EPI)AfAm >90 (>60 ml/min/1.73 sqM) Est GFR (CKD-EPI)NonAf 87 (>60 ml/min/1.73 sqM) Glucose 108 H (74-99) mg/dL Plasma Lactic Acid Jonathon (0.7-2.0) mmol/L Calcium 8.7 (8.4-10.2) mg/dL Total Bilirubin 1.8 H (0.2-1.3) mg/dL AST 20 (14-36) U/L ALT 16 (4-34) U/L Alkaline Phosphatase 78 (38-126) U/L Total Protein 5.4 L (6.3-8.2) g/dL Albumin 3.2 L (3.5-5.0) g/dL Urine Color Colorless Urine Appearance Clear (Clear) Urine pH 6.5 (5.0-8.0) Ur Specific [place] 1.006 (1.001-1.035) Urine Protein Negative (Negative) Urine Glucose (UA) Negative (Negative) Urine Ketones 1+ H (Negative) Urine Blood Negative (Negative) Urine Nitrite Negative (Negative) Urine Bilirubin Negative (Negative) Urine Urobilinogen <2.0 (<2.0) mg/dL Ur Leukocyte Esterase Small H (Negative) Urine RBC <1 (0-5) /hpf Urine WBC 11 H (0-5) /hpf Ur Squamous Epith Cells 1 (0-4) /hpf Urine Mucus Rare H (None) /hpf 02/02/24 Range/Units 12:16 WBC (3.8-10.6) k/uL RBC (3.80-5.40) m/uL Hgb (11.4-16.0) gm/dL Hct (34.0-46.0) % MCV (80.0-100.0) fL MCH (25.0-35.0) pg MCHC (31.0-37.0) g/dL RDW (11.5-15.5) % Plt Count (150-450) k/uL MPV Neutrophils % % Lymphocytes % % Monocytes % % Eosinophils % % Basophils % % Neutrophils # (1.3-7.7) k/uL Lymphocytes # (1.0-4.8) k/uL Monocytes # (0-1.0) k/uL Eosinophils # (0-0.7) k/uL Basophils # (0-0.2) k/uL Hypochromasia Macrocytosis Sodium (137-145) mmol/L Potassium (3.5-5.1) mmol/L Chloride (98-107) mmol/L Carbon Dioxide (22-30) mmol/L Anion Gap mmol/L BUN (7-17) mg/dL Creatinine (0.52-1.04) mg/dL Est GFR (CKD-EPI)AfAm (>60 ml/min/1.73 sqM) Est GFR (CKD-EPI)NonAf (>60 ml/min/1.73 sqM) Glucose (74-99) mg/dL Plasma Lactic Acid Jonathon 0.8 (0.7-2.0) mmol/L Calcium (8.4-10.2) mg/dL Total Bilirubin (0.2-1.3) mg/dL AST (14-36) U/L ALT (4-34) U/L Alkaline Phosphatase (38-126) U/L Total Protein (6.3-8.2) g/dL Albumin (3.5-5.0) g/dL Urine Color Urine Appearance (Clear) Urine pH (5.0-8.0) Ur Specific [place] (1.001-1.035) Urine Protein (Negative) Urine Glucose (UA) (Negative) Urine Ketones (Negative) Urine Blood (Negative) Urine Nitrite (Negative) Urine Bilirubin (Negative) Urine Urobilinogen (<2.0) mg/dL Ur Leukocyte Esterase (Negative) Urine RBC (0-5) /hpf Urine WBC (0-5) /hpf Ur Squamous Epith Cells (0-4) /hpf Urine Mucus (None) /hpf - Radiology Data Radiology results: report reviewed, image reviewed Disposition Clinical Impression: Strain of lumbar region, Lumbar radiculopathy Disposition: HOME SELF-CARE Instructions (If sedation given, give patient instructions): Acute Low Back Pain (ED) Additional Instructions: Return to the emergency department with any new, worsening, or concerning symptoms. Take the Mobic once daily with Tylenol as needed for pain relief. You can also apply the lidocaine patches daily. Continue to take your Myrtle sparingly when your pain is the most severe. Follow up with your primary care provider in 1-2 days. Prescriptions: Lidocaine 5% Patch [Lidoderm 5% Patch] 1 patch TOPICAL DAILY PRN #30 patch PRN Reason: Pain Meloxicam [Mobic] 15 mg PO DAILY PRN #20 tab PRN Reason: Pain Is patient prescribed a controlled substance at d/c from ED?: No Referrals: Bri Steele MD [Primary Care Provider] - 1-2 days Time of Disposition: 16:31
[2024-02-02] MEDS: KETOROLAC 15 MG/ML 1 ML VIAL IVP STA ×2 (12:29→15:36)
[2024-02-02] MEDS: ORPHENADRINE 30 MG/ML 2 ML VIAL IVP STA (12:30)
[2024-02-02] MEDS: MORPHINE SULFATE 4 MG/ML SYRINGE IVP STA (12:31)
[2024-02-02] MEDS: LIDOCAINE 4% PATCH TOPICAL ONE (12:31)
[2024-02-02 12:32] LABS: Basophils % (A) 0 %; Eosinophils # (A) 0.3 k/uL (0-0.7); Eosinophils % (A) 4 %; HCT 41.3 % (34.0-46.0); HGB 13.4 gm/dL (11.4-16.0); Hypochromasia Slight; Lymphocytes # (A) 0.8 k/uL (1.0-4.8); Lymphocytes % (A) 11 %; MCH 33.4 pg (25.0-35.0); MCHC 32.6 g/dL (31.0-37.0); MCV 102.5 fL (80.0-100.0); Macrocytosis Slight; Monocytes # (A) 0.4 k/uL (0-1.0); Monocytes % (A) 5 %; Neutrophils # (A) 6.2 k/uL (1.3-7.7); Neutrophils % (A) 80 %; Platelet Count 250 k/uL (150-450); RBC 4.02 m/uL (3.80-5.40); RDW 13.8 % (11.5-15.5); WBC 7.7 k/uL (3.8-10.6)
[2024-02-02] MEDS: SODIUM CHLORIDE 0.9% 1,000 ML IV STA (12:32)
[2024-02-02 12:40] LABS: ALT 16 U/L (4-34); AST 20 U/L (14-36); African American GFR (CKD) >90 (>60 ml/min/1.73 sqM); Albumin 3.2 g/dL (3.5-5.0); Alkaline Phosphatase 78 U/L (38-126); Anion Gap 1 mmol/L; Blood Urea Nitrogen 12 mg/dL (7-17); Calcium 8.7 mg/dL (8.4-10.2); Carbon Dioxide 30 mmol/L (22-30); Chloride 105 mmol/L (98-107); Glucose 108 mg/dL (74-99); Non-African American GFR(CKD) 87 (>60 ml/min/1.73 sqM); Potassium 4.1 mmol/L (3.5-5.1); Sodium 136 mmol/L (137-145); Total Bilirubin 1.8 mg/dL (0.2-1.3); Total Protein 5.4 g/dL (6.3-8.2)
--- NOTE | 2024-02-02 14:07 | CT ---
EXAMINATION TYPE: CT abdomen pelvis wo con DATE OF EXAM: 02/02/2024 COMPARISON: None HISTORY: 78-year-old female Left side/flank pain CT DLP: 1252 mGycm. Automated exposure control for dose reduction was used. TECHNIQUE: Contiguous axial scanning of the abdomen and pelvis without IV contrast. Coronal and sagit carol reconstructions performed. FINDINGS: Heart upper limits of normal in size. Prominent patchy and strandy bibasilar densities, right greater than left. Likely areas of atelectasis and scarring. No pleural effusion. Noncontrast appearance of the liver, adrenal glands, right kidney, spleen, and pancreas within normal limits. Cholecystectomy clips. 1.6 cm parapelvic cyst left kidney. No nephrolithiasis or hydronephrosis is seen. There appears to be an incidental duplex left renal collecting system. The 2 ureters appear to come together distally. No dilated small bowel, free fluid, or free air. No mesenteric or retroperitoneal lymphadenopathy. Scattered subcutaneous foci near all of the anterior abdominal wall. Scattered fat stranding is also present. There is more focal fat stranding and skin thickening at the umbilicus. Some of the fat str anding extends deep to the abdominal wall muscle layer to the underlying omental fat. Normal appendix. Mild to moderate stool burden. Left-sided colonic diverticulosis, more extensive wit hin the sigmoid colon. No pericolonic inflammatory change. Bladder is urine distended. Uterus retroverted. Pelvic phleboliths. Both ovaries are visualized. No a bnormal fluid collection in the pelvis or pelvic lymphadenopathy. Bones: Advanced spondylotic changes lumbar spine. Degenerative grade 2 anterolisthesis L4-L5. IMPRESSION: 1. Scattered foci of air throughout the anterior abdominal subcutaneous fat. More focal soft tissue s tranding in skin thickening at the umbilicus. Correlate for cellulitis. 2. Note that the inflammatory change/cellulitis extends into the intra-abdominal space involving the underlying omentum. 3. Incidental duplex left renal collecting system without nephrolithiasis or hydronephrosis. 4. Sigmoid diverticulosis without acute diverticulitis.
[2024-02-02 14:26] LABS: Appearance,Urine Clear (Clear); Bilirubin,Urine Negative (Negative); Blood,Urine Negative (Negative); Color,Urine Colorless; Glucose,Urine (UA) Negative (Negative); Ketones,Urine 1+ (Negative); Leukocyte Esterase,Urine Small (Negative); Mucus,Urine Rare /hpf; Nitrite,Urine Negative (Negative); PH, Urine 6.5 (5.0-8.0); Protein,Urine Negative (Negative); RBC,Urine <1 /hpf (0-5); Specific Gravity,Urine 1.006 (1.001-1.035); Squamous Epithelial Cell,Urine 1 /hpf (0-4); Urobilinogen,Urine <2.0 mg/dL (<2.0); WBC,Urine 11 /hpf (0-5)
[2024-02-02] MEDS: DEXAMETHASONE SOD PHOSPHATE 10 MG/ML 1 ML VIAL IVP STA (15:35)
[2024-02-02] MEDS: HYDROmorphone 1 MG/ML 1 ML SYRINGE IVP STA (16:42)
[2024-02-02 16:58] VITALS: BP 156/74
== END 2024-02-02 16:59 | disposition home or self-care (01) ==
LOC: EC 11:54
DX: S39.012A Strain of muscle, fascia and tendon of lower back, initial encounter (principal); M54.16 Radiculopathy, lumbar region; Z88.1 Allergy status to other antibiotic agents; Z88.2 Allergy status to sulfonamides; X58.XXXA Exposure to other specified factors, initial encounter
CPT/HCPCS: 36415; 80053; 83605; 85025; 81001; 74176; 99284; 96374; 96375 ×5; 96376; 96361; J2270; J1100; J2360; J3360; J1170; J1885

== ENCOUNTER → 2024-02-28 | Outpatient (CLI) | payer MEDICARE ==
--- NOTE | 2024-02-28 09:04 | MR ---
EXAMINATION TYPE: MR lumbar spine wo con DATE OF EXAM: 02/28/2024 COMPARISON: NONE HISTORY: Low back pain into left side TECHNIQUE: T1 and T2 axial and sagittal images of the lumbar spine are submitted. FINDINGS: There is no abnormal signal seen within the visualized spinal cord or paraspinal soft tissu es. At L1-2 there is severe degenerative disc disease with discogenic marrow changes. Broad-based disc bu lging greater paracentrally and laterally to left. Moderate bilateral foraminal encroachment. At L2-3 there is there is a large disc herniation with extruded fragment extending posterior to the L 2 vertebral segment encroachment on the lateral recess and left neural foramina. Severe facet arthrop athy with severe left-sided foraminal encroachment. There is mild canal stenosis. At L3-4 there is severe degenerative disc disease with hypertrophic change of the facet joints and li gamentum flavum. Moderate to severe canal stenosis and moderate bilateral foraminal encroachment. At L4-5 there is moderate degenerative disc disease with grade 1 anterolisthesis which appears degene rative secondary to advanced facet arthropathy. Hypertrophic change of the ligamentum flavum with mod erate to severe canal stenosis and moderate bilateral foraminal encroachment. At L5-S1 there is facet arthropathy but no disc herniation, canal stenosis, or foraminal encroachment . Atrophic change of the musculature. Aorta of normal caliber. Benign-appearing parapelvic left renal c yst. IMPRESSION: 1. Large disc herniation L2-L3 with large extruded or sequestered fragment extending superiorly along the left posterior margin of the L2 vertebral segment. It encroaches upon the left lateral recess an d neural foramina resulting in canal stenosis and severe left-sided foraminal encroachment. 2. Multilevel severe degenerative change, multilevel canal stenosis and foraminal encroachment as dis cussed above.
== END | disposition home or self-care (01) ==
LOC: RADMRIMAIN 07:15
PROVIDERS: ATTEND Orthopaedic Surgery
DX: M47.26 Other spondylosis with radiculopathy, lumbar region (principal); M48.061 Spinal stenosis, lumbar region without neurogenic claudication; M47.812 Spondylosis without myelopathy or radiculopathy, cervical region; M51.16 Intervertebral disc disorders with radiculopathy, lumbar region
CPT/HCPCS: 72148

== ENCOUNTER 2024-04-08 13:12 | Emergency (ER) | payer MEDICARE ==
[2024-04-08] MEDS: MORPHINE SULFATE 4 MG/ML SYRINGE IVP STA (15:20)
[2024-04-08] MEDS: ORPHENADRINE 30 MG/ML 2 ML VIAL IVP STA (15:20)
[2024-04-08 15:27] VITALS: RESP 18
--- NOTE | 2024-04-08 16:41 | ED ---
Back Pain HPI - General Chief Complaint: Back Pain/Injury Stated Complaint: Back Pain Time Seen by Provider: 04/08/24 14:30 Source: patient, EMS, RN notes reviewed - History of Present Illness Initial Comments: 78-year-old female presenting with low back pain x 4 hours. States she has a extensive history of back pain and degenerative disc disease. States she was at the store this morning when she gradually started to feel lower back spasms, came home to lay down, and reports symptoms worsened. States this feels similar in quality to her lower back pain but worse in severity. Denies numbness, ti ngling, weakness of the legs bilaterally. Denies bowel or bladder incontinence. Denies fevers, chills, IV drug use. She does take Eliquis for history of blood clots. Abdominal pain, chest pain, shortness of breath, mid scapular pain - Related Data Home Medications Medication Instructions Recorded Confirmed Montelukast [Singulair] 10 mg PO HS 12/05/14 04/08/24 Multivitamins, Thera [Multivitamin 1 tab PO DAILY@1200 12/05/14 04/08/24 (formulary)] Simvastatin [Zocor] 20 mg PO HS 12/05/14 04/08/24 Levothyroxine Sodium [Synthroid] 50 mcg PO DIRECTED 03/31/20 04/08/24 Calcium Carbonate [Calcium] 600 mg PO DAILY@1200 08/18/22 04/08/24 Cetirizine HCl [Zyrtec] 10 mg PO DAILY@1200 08/18/22 04/08/24 Cholecalciferol [Vitamin D3 (25 25 mcg PO DAILY@1200 08/18/22 04/08/24 Mcg = 1000 Iu)] Liothyronine Sodium [Cytomel] 5 mcg PO BID 08/18/22 04/08/24 cycloSPORINE 0.05% OPHTH SOLN 1 applicator BOTH EYES Q12H 08/18/22 04/08/24 [Restasis] guaiFENesin [Mucinex] 600 mg PO BID 08/18/22 04/08/24 Apixaban [Eliquis] 5 mg PO BID 10/03/23 04/08/24 Folic Acid 0.4 mg PO DAILY@1200 04/08/24 04/08/24 Ondansetron [Zofran] 4 mg PO TID PRN 04/08/24 04/08/24 Sennosides [Senokot] 34.4 mg PO HS 04/08/24 04/08/24 Spironolactone [Aldactone] 100 mg PO DAILY 04/08/24 04/08/24 Triamcinolone 0.1% Cream [Kenalog 1 applicatio TOPICAL BID PRN 04/08/24 04/08/24 0.1% Cream] Zolpidem [Ambien] 10 mg PO HS 04/08/24 04/08/24 polyethylene glycoL 3350 [Miralax] 17 gm PO DAILY 04/08/24 04/08/24 Previous Rx's Medication Instructions Recorded Famotidine [Pepcid] 20 mg PO BID #60 tablet 08/21/22 Lidocaine 5% Patch [Lidoderm 5% 1 patch TOPICAL DAILY PRN #30 patch 02/02/24 Patch] Cyclobenzaprine [Flexeril] 10 mg PO TID PRN #15 tab 04/08/24 Lidocaine 5% Patch [Lidoderm 5% 1 patch TOPICAL DAILY PRN 7 Days 04/08/24 Patch] #7 patch Allergies Allergy/AdvReac Type Severity Reaction Status Date / Time levofloxacin [From Levaquin] Allergy Swelling Verified 04/08/24 16:38 moxifloxacin HCl Allergy Swelling Verified 04/08/24 16:38 [From Avelox] Sulfa (Sulfonamide Allergy Swelling Verified 04/08/24 16:38 Antibiotics) aspartame AdvReac headaches Verified 04/08/24 16:38 Review of Systems ROS Statement: Those systems with pertinent positive or pertinent negative responses have been documented in the HPI. ROS Other: All systems not noted in ROS Statement are negative. Past Medical History Past Medical History: Deep Vein Thrombosis (DVT), GERD/Reflux, Hyperlipidemia, Pulmonary Embolus (PE), Thyroid Disorder, Vascular Disorder Additional Past Medical History / Comment(s): Hx colon polyps. Hx PE bilateral lungs 2022. Possible Sleep Apnea. History of Any Multi-Drug Resistant Organisms: None Reported Past Surgical History: Orthopedic Surgery Additional Past Surgical History / Comment(s): Face lift, bilateral knee - torn meniscus repair, bilateral thumb tendons replaced, colonoscopy. Past Anesthesia/Blood Transfusion Reactions: Motion Sickness, Postoperative Nausea & Vomiting (PONV) Additional Past Anesthesia/Blood Transfusion Reaction / Comment(s): No hx blood transfusion. Past Psychological History: No Psychological Hx Reported Smoking Status: Never smoker Past Alcohol Use History: None Reported Past Drug Use History: None Reported - Past Family History Mother Family Medical History: Deep Vein Thrombosis (DVT) Father Family Medical History: Cancer, Deep Vein Thrombosis (DVT) General Exam General appearance: alert, in no apparent distress Head exam: Present: atraumatic, normocephalic, normal inspection Eye exam: Present: normal appearance, PERRL, EOMI. Absent: scleral icterus, conjunctival injection, periorbital swelling Neck exam: Present: normal inspection. Absent: tenderness, meningismus, lymphadenopathy Respiratory exam: Present: normal lung sounds bilaterally. Absent: respiratory distress, wheezes, rales, rhonchi, stridor Cardiovascular Exam: Present: regular rate, normal rhythm, normal heart sounds. Absent: systolic murmur, diastolic murmur, rubs, gallop, clicks GI/Abdominal exam: Present: soft, normal bowel sounds. Absent: distended, tenderness, guarding, rebound, rigid Extremities exam: Present: normal inspection, full ROM, normal capillary refill. Absent: tenderness, pedal edema, joint swelling, calf tenderness Back exam: Present: normal inspection, full ROM, tenderness (Lumbar spine tenderness), paraspinal tenderness (Bilateral paraspinal tenderness in lumbar region). Absent: CVA tenderness (R), CVA tenderness (L), rash noted Neurological exam: Present: alert, oriented X3 Psychiatric exam: Present: normal affect, normal mood Skin exam: Present: warm, dry, intact, normal color. Absent: rash Course Vital Signs 04/08/24 04/08/24 04/08/24 13:56 15:26 17:35 Temperature 97.7 F 98.2 F Pulse Rate 69 78 63 Respiratory 16 18 18 Rate Blood Pressure 112/66 133/65 119/57 O2 Sat by Pulse 95 96 95 Oximetry Medical Decision Making - Medical Decision Making Was pt. sent in by a medical professional or institution (, [place], [employer], urgent care, hospital, or jail...) When possible be specific @ -No Did you speak to anyone other than the patient for history (EMS, parent, family, police, friend...)? What history was obtained from this source @ -No Did you review nursing and triage notes (agree or disagree)? Why? @ -I reviewed and agree with nursing and triage notes Were old charts reviewed (outside hosp., previous admission, EMS record, old EKG, old radiological studies, urgent care reports/EKG's, jail records)? Report findings @ -No old charts were reviewed Differential Diagnosis (chest pain, altered mental status, abdominal pain women, abdominal pain men, vaginal bleeding, weakness, fever, dyspnea, syncope, headache, dizziness, GI bleed, back pain, seizure, CVA, palpatations, mental health, musculoskeletal)? @ -Differential Back Pain: Strain, zoster, cauda equina syndrome, epidural abscess, vertebral osteomyelitis, discitis, fracture, subluxation, disc herniation, DJD, spinal stenosis, dissection, AAA, pancreatitis, peptic ulcer disease, pyelonephritis, kidney stone, this is not meant to be an all-inclusive list. EKG interpreted by me (3pts min.). @ -None X-rays interpreted by me (1pt min.). @ -None done CT interpreted by me (1pt min.). @ -None done U/S interpreted by me (1pt. min.). @ -None done What testing was considered but not performed or refused? (CT, X-rays, U/S, labs)? Why? @ -Imaging considered however deferred as patient has history of musculoskeletal back pain and reports this feels similar in quality, no red flag symptoms, there is reproducible tenderness on examination What meds were considered but not given or refused? Why? @ -None Did you discuss the management of the patient with other professionals (professionals i.e. , PA, [employer], lab, RT, psych nurse, protective services social worker, aerospace technician, teacher, patient safety officer, binder caser)? Give summary @ -No Was smoking cessation discussed for >3mins.? @ -No Was critical care preformed (if so, how long)? @ -No Were there social determinants of health that impacted care today? How? (Homelessness, low income, unemployed, alcoholism, drug addiction, transportation, low edu. Level, literacy, decrease access to med. care, senior living, rehab)? @ -No Was there de-escalation of care discussed even if they declined (Discuss DNR or withdrawal of care, Hospice)? DNR status @ -No What co-morbidities impacted this encounter? (DM, HTN, Smoking, COPD, CAD, Cancer, CVA, ARF, Chemo, Hep., AIDS, mental health diagnosis, sleep apnea, morbid obesity)? @ -None Was patient admitted / discharged? Hospital course, mention meds given and route, prescriptions, significant lab abnormalities, going to OR and other pertinent info. @ -Discharged. This is a 78-year-old female with history of degenerative disc disease presenting with low back pain x 4 hours ago. No red flag symptoms. Vital signs within acceptable limits. Neurovascularly intact. There is reproducible tenderness on examination. Imaging considered at this time but deferred due to likely musculoskeletal in nature, no red flag symptoms. Patient was provided with analgesics. Upon reevaluation, patient reports symptoms have completely resolved and feels stable for discharge. Advise close follow-up with PCP within the week for reevaluation. Strict return precautions discussed as well as supportive care. Patient is agreeable to plan. Case was discussed with my ED attending Dr. Jurado. Patient discharged in stable condition. Undiagnosed new problem with uncertain prognosis? @ -No Drug Therapy requiring intensive monitoring for toxicity (Heparin, Nitro, Insulin, Cardizem)? @ -No Were any procedures done? @ -No Diagnosis/symptom? @ -Low back strain Acute, or Chronic, or Acute on Chronic? @ -Acute Uncomplicated (without systemic symptoms) or Complicated (systemic symptoms)? @ -Uncomplicated Side effects of treatment? @ -No Exacerbation, Progression, or Severe Exacerbation? @ -No Poses a threat to life or bodily function? How? (Chest pain, [place], SC, pneumonia, PE, COPD, DKA, ARF, appy, cholecystitis, CVA, Diverticulitis, Homicidal, Suicidal, threat to staff... and all critical care pts) @ -No Disposition Clinical Impression: Low back strain Disposition: HOME SELF-CARE Condition: Stable Instructions (If sedation given, give patient instructions): Acute Low Back Pain (ED) Additional Instructions: Follow-up with PCP in 1 to 3 days for reevaluation. Take muscle relaxers and use lidocaine patches as needed for pain. Please return to the Emergency Department if symptoms worsen or any other concerns. Prescriptions: Cyclobenzaprine [Flexeril] 10 mg PO TID PRN #15 tab PRN Reason: Muscle Spasm Lidocaine 5% Patch [Lidoderm 5% Patch] 1 patch TOPICAL DAILY PRN 7 Days #7 patch PRN Reason: Pain Is patient prescribed a controlled substance at d/c from ED?: No Referrals: Bri Steele MD [Primary Care Provider] - 1-2 days Time of Disposition: 16:41
[2024-04-08 17:36] VITALS: BP 119/57; PULSE 63; TEMP 98.2
== END 2024-04-08 17:36 | disposition home or self-care (01) ==
LOC: EC 13:12
CPT/HCPCS: 96374; 96375; 99284

== ENCOUNTER 2024-04-09 12:06 | Emergency (ER) | payer MEDICARE ==
[2024-04-09 12:21] VITALS: RESP 18
--- NOTE | 2024-04-09 12:35 | ED ---
Back Pain [facility] - General Chief Complaint: Extremity Problem,Nontraumatic Stated Complaint: L side nerve pain Time Seen by Provider: 04/09/24 12:15 Source: patient, EMS, RN notes reviewed Mode of arrival: ambulatory Limitations: physical limitation - History of Present Illness Initial Comments: This is a 78-year-old female who presents to the emergency department for lower back pain and left lower extremity pain. Patient states that she had surgery in December that caused nerve damage and subsequent back pain. She has been dealing with intermittent pain in her lower back. However, yesterday she started to develop pain in the left buttocks rating down the left leg. Pain resolved in the emergency department she was discharged home. States that after the morphine wore off she tried taking [place] and Flexeril, but did not have any relief, prompting her to come back to the emergency department for evaluation. Denies any loss of bowel/bladder control or saddle anesthesia. States that she does have an appointment with Dr. Resendiz, orthopedics, tomorrow for further evaluation. MD Complaint: back pain - Related Data Home Medications Medication Instructions Recorded Confirmed Montelukast [Singulair] 10 mg PO HS 12/05/14 04/08/24 Multivitamins, Thera [Multivitamin 1 tab PO DAILY@1200 12/05/14 04/08/24 (formulary)] Simvastatin [Zocor] 20 mg PO HS 12/05/14 04/08/24 Levothyroxine Sodium [Synthroid] 50 mcg PO DIRECTED 03/31/20 04/08/24 Calcium Carbonate [Calcium] 600 mg PO DAILY@1200 08/18/22 04/08/24 Cetirizine HCl [Zyrtec] 10 mg PO DAILY@1200 08/18/22 04/08/24 Cholecalciferol [Vitamin D3 (25 25 mcg PO DAILY@1200 08/18/22 04/08/24 Mcg = 1000 Iu)] Liothyronine Sodium [Cytomel] 5 mcg PO BID 08/18/22 04/08/24 cycloSPORINE 0.05% OPHTH SOLN 1 applicator BOTH EYES Q12H 08/18/22 04/08/24 [Restasis] guaiFENesin [Mucinex] 600 mg PO BID 08/18/22 04/08/24 Apixaban [Eliquis] 5 mg PO BID 10/03/23 04/08/24 Folic Acid 0.4 mg PO DAILY@1200 04/08/24 04/08/24 Ondansetron [Zofran] 4 mg PO TID PRN 04/08/24 04/08/24 Sennosides [Senokot] 34.4 mg PO HS 04/08/24 04/08/24 Spironolactone [Aldactone] 100 mg PO DAILY 04/08/24 04/08/24 Triamcinolone 0.1% Cream [Kenalog 1 applicatio TOPICAL BID PRN 04/08/24 04/08/24 0.1% Cream] Zolpidem [Ambien] 10 mg PO HS 04/08/24 04/08/24 polyethylene glycoL 3350 [Miralax] 17 gm PO DAILY 04/08/24 04/08/24 Previous Rx's Medication Instructions Recorded Famotidine [Pepcid] 20 mg PO BID #60 tablet 08/21/22 Lidocaine 5% Patch [Lidoderm 5% 1 patch TOPICAL DAILY PRN #30 patch 02/02/24 Patch] Cyclobenzaprine [Flexeril] 10 mg PO TID PRN #15 tab 04/08/24 Lidocaine 5% Patch [Lidoderm 5% 1 patch TOPICAL DAILY PRN 7 Days 04/08/24 Patch] #7 patch methocarbamoL [Robaxin-750] 1,500 mg PO TID PRN #30 tab 04/09/24 predniSONE 50 mg PO DAILY 5 Days #5 tab 04/09/24 Allergies Allergy/AdvReac Type Severity Reaction Status Date / Time levofloxacin [From Levaquin] Allergy Swelling Verified 04/08/24 16:38 moxifloxacin HCl Allergy Swelling Verified 04/08/24 16:38 [From Avelox] Sulfa (Sulfonamide Allergy Swelling Verified 04/08/24 16:38 Antibiotics) aspartame AdvReac headaches Verified 04/08/24 16:38 Review of Systems ROS Statement: Those systems with pertinent positive or pertinent negative responses have been documented in the HPI. ROS Other: All systems not noted in ROS Statement are negative. Past Medical History Past Medical History: Deep Vein Thrombosis (DVT), GERD/Reflux, Hyperlipidemia, Pulmonary Embolus (PE), Thyroid Disorder, Vascular Disorder Additional Past Medical History / Comment(s): Hx colon polyps. Hx PE bilateral lungs 2022. Possible Sleep Apnea. History of Any Multi-Drug Resistant Organisms: None Reported Past Surgical History: Orthopedic Surgery Additional Past Surgical History / Comment(s): Face lift, bilateral knee - torn meniscus repair, bilateral thumb tendons replaced, colonoscopy. Past Anesthesia/Blood Transfusion Reactions: Motion Sickness, Postoperative Nausea & Vomiting (PONV) Additional Past Anesthesia/Blood Transfusion Reaction / Comment(s): No hx blood transfusion. Past Psychological History: No Psychological Hx Reported Smoking Status: Never smoker Past Alcohol Use History: None Reported Past Drug Use History: None Reported - Past Family History Mother Family Medical History: Deep Vein Thrombosis (DVT) Father Family Medical History: Cancer, Deep Vein Thrombosis (DVT) General Exam Limitations: physical limitation General appearance: alert, in no apparent distress Head exam: Present: atraumatic, normocephalic, normal inspection Respiratory exam: Present: normal lung sounds bilaterally. Absent: respiratory distress, wheezes, rales, rhonchi, stridor Cardiovascular Exam: Present: regular rate, normal rhythm, normal heart sounds. Absent: systolic murmur, diastolic murmur, rubs, gallop, clicks Back exam: Present: other (Tenderness over the left lower back and left buttocks) Neurological exam: Present: alert, oriented X3, CN II-XII intact Psychiatric exam: Present: normal affect, normal mood Skin exam: Present: warm, dry, intact, normal color. Absent: rash Course Vital Signs 04/09/24 04/09/24 12:14 15:02 Temperature 97.5 F L 97.7 F Pulse Rate 86 80 Respiratory 18 18 Rate Blood Pressure 164/88 150/86 O2 Sat by Pulse 95 96 Oximetry Medical Decision Making - Medical Decision Making This is a 78 year old female who presents to the emergency department for back pain. Was pt. sent in by a medical professional or institution? @ -No Did you speak to anyone other than the patient for history? @ -No Did you review nursing and triage notes? @ -Yes, and I agree, it is accurate with regards to the patient's symptoms. Were old charts reviewed? @ -MRI of the lumbar spine from 02/08/2024 demonstrating large disc herniation at L2-L3 and other changes resulting in canal stenosis and left-sided foraminal encroachment. Differential Diagnosis? @ -Differential Back Pain: Strain, zoster, cauda equina syndrome, epidural abscess, vertebral osteomyelitis, discitis, fracture, subluxation, disc herniation, DJD, spinal stenosis, dissection, AAA, pancreatitis, peptic ulcer disease, pyelonephritis, kidney stone, this is not meant to be an all-inclusive list. EKG interpreted by me (3pts min.)? @ -Not obtained X-rays interpreted by me (1pt min.)? @ -Not obtained CT interpreted by me (1pt min.)? @ -Not obtained U/S interpreted by me (1pt. min.)? @ -Not obtained What testing was considered but not performed? (CT, X-rays, U/S, labs)? Why? @ -None What meds were considered but not given? Why? @ -None Did you discuss the management of the patient with other professionals? @ -No Did you reconcile home meds? @ -No Was smoking cessation discussed for >3mins.? @ -No Was critical care preformed (if so, how long)? @ -No Were there social determinants of health that impacted care today? How? (Homelessness, low income, unemployed, alcoholism, drug addiction, transportation, low edu. Level, literacy, decrease access to med. care, [facility], rehab)? @ -No Was there de-escalation of care discussed even if they declined? (Discuss DNR or withdrawal of care, Hospice)? @ -No What co-morbidities impacted this encounter? (DM, HTN, Smoking, COPD, CAD, Cancer, CVA, Hep., AIDS, mental health diagnosis, sleep apnea, morbid obesity)? @ -DDD Was patient admitted / discharged? @ -Discharged. When the patient arrived to the emergency department her pain had essentially resolved due to the morphine she was given by EMS. She did have an MRI in January demonstrating a large disc herniation and severe left-sided foraminal encroachment, likely causing her current radiculopathy. Given that there were no new injuries and she just had an MRI, no additional imaging was obtained. She also has no red flag signs or symptoms. Her pain did begin to flareup again and this was managed with additional pain medication. Admission was offered for pain control given that she is not having any relief with the medication she is taking at home, which currently consists of hydrocodone, Flexeril, and ibuprofen. Patient however declined and states that she would rat her go home and follow-up with Dr. Resendiz tomorrow. She was started on a course of steroids to be taken over the next 5 days to help with the sciatica and her muscle relaxant was switched to Robaxin to see if that offers any more benefit. Patient discharged home in stable condition. Case discussed with ED attending Dr. Jurado. This case was discussed in detail with the attending ED physician. Presentation, findings, and treatment plan discussed in detail as well. Undiagnosed new problem with uncertain prognosis? @ -None Drug Therapy requiring intensive monitoring for toxicity (Heparin, Nitro, Insulin, Cardizem)? @ -None Were any procedures done? @ -None Diagnosis/symptom? @ -Left lumbar radiculopathy Acute, or Chronic, or Acute on Chronic? @ -Acute Uncomplicated (without systemic symptoms) or Complicated (systemic symptoms)? @ -Uncomplicated Side effects of treatment? @ -None Exacerbation, Progression, or Severe Exacerbation] @ -Not applicable Poses a threat to life or bodily function? @ -The pain is having an impact on her ability to function. Disposition Clinical Impression: Left lumbar radiculopathy Disposition: HOME SELF-CARE Instructions (If sedation given, give patient instructions): Lumbar Radiculopathy (ED) Additional Instructions: Return to the emergency department with any new, worsening, or concerning symptoms. Take the prednisone daily for 5 days. Take the Robaxin as 1 to 2 tablets up to 3-4 times daily. Do not take this with the Flexeril, take 1 or the other. Follow up with Dr. Resendiz tomorrow. Prescriptions: predniSONE 50 mg PO DAILY 5 Days #5 tab methocarbamoL [Robaxin-750] 1,500 mg PO TID PRN #30 tab PRN Reason: Pain Is patient prescribed a controlled substance at d/c from ED?: No Referrals: Bri Steele MD [Primary Care Provider] - 1-2 days Forms: Who Do I Call?, Community Resources, Help In The Home, Personal Abstract Writer Time of Disposition: 14:41
[2024-04-09] MEDS: DEXAMETHASONE SOD PHOSPHATE 10 MG/ML 1 ML VIAL IVP STA (13:28)
[2024-04-09] MEDS: HYDROmorphone 1 MG/ML 1 ML SYRINGE IVP STA (13:32)
[2024-04-09] MEDS: KETOROLAC 15 MG/ML 1 ML VIAL IVP STA (13:34)
[2024-04-09 15:04] VITALS: BP 150/86; PULSE 80; TEMP 97.7
== END 2024-04-09 15:04 | disposition home or self-care (01) ==
LOC: EC 12:06
CPT/HCPCS: 96374; 96375; 99284

== ENCOUNTER 2024-04-16 09:53 | Inpatient (IN) | payer MEDICARE ==
--- NOTE | 2024-04-16 13:09 | CT ---
EXAMINATION TYPE: CT lumbar spine wo con CT DLP: 1516.8 mGycm, Automated exposure control for dose reduction was used. DATE OF EXAM: 04/16/2024 12:41 PM COMPARISON: MRI lumbar spine 02/28/2024, CT abdomen and pelvis 02/02/2024. CLINICAL INDICATION:Female, 78 years old with history of pain; PHH, Chronic lower back pain TECHNIQUE: Multiple axial images were obtained from the midportion of T11 through the sacroiliac yolanda nts. Soft tissue and bone windows in coronal and sagittal planes were obtained and reviewed. Contrast used: none. Oral contrast used: none. FINDINGS: Alignment: There are 5 lumbar type vertebral bodies. Grade 1 anterolisthesis of L4 on L5 without evid ence of pars defects. Bone: No evidence of fracture is identified. Degenerative changes of both SI joints. Discs: Multilevel endplate sclerosis with vacuum disc disease and osteophytosis. Most pronounced at L 1-L2. T12-L1: No spinal canal or neural foraminal stenosis is identified. L1-L2: Broad-based disc bulge with mild effacement of the anterior thecal sac. Bilateral facet arthro danial with moderate bilateral neural foraminal stenosis. L2-L3: Redemonstration of large left paracentral superior disc extrusion extending into the left fora heath zone. This results in moderate anterior left spinal canal stenosis. There is again complete eff acement of the left neural foramen. Right neural foramen is patent. L3-L4: Broad-based disc bulge with bilateral facet arthropathy and ligamentum flavum thickening contr ibute to moderate to severe central canal stenosis again. Moderate left and [id number] right ne ural foraminal stenosis. L4-L5: Grade 1 anterolisthesis with uncovering of the disc. Broad-based disc bulge with bilateral fac et arthropathy and ligamentum flavum buckling. This results in severe central canal stenosis again an d [id number] bilateral neural foraminal stenosis. L5-S1: No spinal canal or neural foraminal stenosis is identified. Other: Cholecystectomy clips. IMPRESSION: 1. No evidence for spinal fracture. 2. Redemonstration of large disc herniation at L2-L3 with cranial extrusion. Results in complete effa cement of the left neural foramen at this level. Moderate central canal stenosis at this level. Overa ll similar appearance to prior MRI 02/28/2024. Spinal surgery consultation is recommended. 3. Moderate multilevel degenerative disc disease and facet arthropathy. There is moderate to severe c entral canal stenosis at L3-L4 and severe central canal stenosis at L4-L5. 4. Similar grade 1 anterolisthesis of L4 on L5 without pars defects. [facility], , 04/16/2024 1:07 PM
[2024-04-16] MEDS ORDERED: NALOXONE 0.4 MG/ML 1 ML VIAL IV PRN (13:11)
--- NOTE | 2024-04-16 13:17 | ED ---
General Adult HPI - General Chief complaint: Back Pain/Injury Stated complaint: back pain Time Seen by Provider: 04/16/24 11:15 Source: patient, EMS, RN notes reviewed, old records reviewed Mode of arrival: EMS Limitations: physical limitation - History of Present Illness Initial comments: Patient is a 78-year-old female who presents emergency department complaining of acute on chronic back pain. Is due to have surgery tomorrow with Dr. Redd valdez. Pain has been worse at the day today. Patient called EMS to come in for evaluation. Dr. Resendiz called ahead and asked that the patient admitted under his service for the intractable back pain with plan for OR tomorrow. Requested medicine consult. Patient currently has no significant pain. Received morphine on arrival. Denies any lower extremity paralysis, saddle paresthesias, urinary or bowel incontinence or retention. Symptoms have been ongoing for quite some time is been having worsening back pain lately with due surgery tomorrow. Presents for admission with plan for OR tomorrow. - Related Data Home Medications Medication Instructions Recorded Confirmed Montelukast [Singulair] 10 mg PO HS 12/05/14 04/16/24 Multivitamins, Thera [Multivitamin 1 tab PO DAILY@1200 12/05/14 04/16/24 (formulary)] Simvastatin [Zocor] 20 mg PO HS 12/05/14 04/16/24 Calcium Carbonate [Calcium] 600 mg PO DAILY@1200 08/18/22 04/16/24 Cetirizine HCl [Zyrtec] 10 mg PO DAILY@1200 08/18/22 04/16/24 Cholecalciferol [Vitamin D3 (25 25 mcg PO DAILY@1200 08/18/22 04/16/24 Mcg = 1000 Iu)] Liothyronine Sodium [Cytomel] 5 mcg PO BID 08/18/22 04/16/24 cycloSPORINE 0.05% OPHTH SOLN 1 applicator BOTH EYES Q12H 08/18/22 04/16/24 [Restasis] guaiFENesin [Mucinex] 600 mg PO BID 08/18/22 04/16/24 Folic Acid 0.4 mg PO DAILY@1200 04/08/24 04/16/24 Ondansetron [Zofran] 4 mg PO TID PRN 04/08/24 04/16/24 Sennosides [Senokot] 34.4 mg PO HS 04/08/24 04/16/24 Spironolactone [Aldactone] 100 mg PO DAILY 04/08/24 04/16/24 Triamcinolone 0.1% Cream [Kenalog 1 applic TOPICAL BID PRN 04/08/24 04/16/24 0.1% Cream] Zolpidem [Ambien] 10 mg PO HS 04/08/24 04/16/24 polyethylene glycoL 3350 [Miralax] 17 gm PO DAILY 04/08/24 04/16/24 Gabapentin 300 mg PO TID 04/16/24 04/16/24 Levothyroxine Sodium [Synthroid] 75 mcg PO DAILY 04/16/24 04/16/24 predniSONE [Deltasone] 20 mg PO BID 04/16/24 04/16/24 Previous Rx's Medication Instructions Recorded Famotidine [Pepcid] 20 mg PO BID #60 tablet 08/21/22 Cyclobenzaprine [Flexeril] 10 mg PO TID PRN #15 tab 04/08/24 Lidocaine 5% Patch [Lidoderm 5% 1 patch TOPICAL DAILY PRN 7 Days 04/08/24 Patch] #7 patch methocarbamoL [Robaxin-750] 1,500 mg PO TID PRN #30 tab 04/09/24 Allergies Allergy/AdvReac Type Severity Reaction Status Date / Time levofloxacin [From Levaquin] Allergy Swelling Verified 04/16/24 13:05 moxifloxacin HCl Allergy Swelling Verified 04/16/24 13:05 [From Avelox] Sulfa (Sulfonamide Allergy Swelling Verified 04/16/24 13:05 Antibiotics) aspartame AdvReac headaches Verified 04/16/24 13:05 Review of Systems ROS Statement: Those systems with pertinent positive or pertinent negative responses have been documented in the HPI. Review of Systems: CONST: Denies fever EYES: Denies blurry vision ENT: Denies nasal congestion C/V: Denies Chest pain RESP: Denies shortness of breath GI: Denies abdominal pain : Denies dysuria SKIN: Denies rash. MSK: Endorses back pain NEURO: Denies headache ROS Other: All systems not noted in ROS Statement are negative. Past Medical History Past Medical History: Deep Vein Thrombosis (DVT), GERD/Reflux, Hyperlipidemia, Pulmonary Embolus (PE), Thyroid Disorder, Vascular Disorder Additional Past Medical History / Comment(s): Hx colon polyps. Hx PE bilateral lungs 2022. Possible Sleep Apnea. History of Any Multi-Drug Resistant Organisms: None Reported Past Surgical History: Orthopedic Surgery Additional Past Surgical History / Comment(s): Face lift, bilateral knee - torn meniscus repair, bilateral thumb tendons replaced, colonoscopy. Past Anesthesia/Blood Transfusion Reactions: Motion Sickness, Postoperative Nausea & Vomiting (PONV) Additional Past Anesthesia/Blood Transfusion Reaction / Comment(s): No hx blood transfusion. Past Psychological History: No Psychological Hx Reported Smoking Status: Never smoker Past Alcohol Use History: None Reported Past Drug Use History: None Reported - Past Family History Mother Family Medical History: Deep Vein Thrombosis (DVT) Father Family Medical History: Cancer, Deep Vein Thrombosis (DVT) General Exam - General Exam Comments Initial Comments: General: Appears in no acute distress. HEAD: Normal with no signs of head trauma. EYES: EOMI ENT: Hearing grossly intact, normal oropharynx. RESPIRATORY: Clear breath sounds bilaterally. No wheezes, rales, or rhonchi. C/V: Regular rate and rhythm. S1 and S2 auscultated, no edema, peripheral pulses 2+ and intact throughout ABD: Abd is soft, nontender, nondistended EXT: No step-offs or deformities of the spine palpated. Midline lumbar spine tenderness to palpation which is chronic for the patient. SKIN: No rashes or lesions observed on exposed skin. NEURO: Alert and oriented x 4. No focal deficits. Limitations: physical limitation Course Vital Signs 04/16/24 10:05 Temperature 97.8 F Pulse Rate 73 Respiratory 16 Rate Blood Pressure 126/80 O2 Sat by Pulse 95 Oximetry Medical Decision Making - Medical Decision Making Was pt. sent in by a medical professional or institution (, PA, [employer] PREPARATION WORKER, urgent care, hospital, or group home...) When possible be specific @ -No Did you speak to anyone other than the patient for history (EMS, parent, family, police, friend...)? What history was obtained from this source @ -No Did you review nursing and triage notes (agree or disagree)? Why? @ -I reviewed and agree with nursing and triage notes Were old charts reviewed (outside hosp., previous admission, EMS record, old EKG, old radiological studies, urgent care reports/EKG's, group home records)? Report findings @ -Old imaging reviewed and compared with today's imaging which shows chronic findings. Differential Diagnosis (chest pain, altered mental status, abdominal pain women, abdominal pain men, vaginal bleeding, weakness, fever, dyspnea, syncope, headache, dizziness, GI bleed, back pain, seizure, CVA, palpatations, mental health, musculoskeletal)? @ -Differential Back Pain: Strain, zoster, cauda equina syndrome, epidural abscess, vertebral osteomyelitis, discitis, fracture, subluxation, disc herniation, DJD, spinal stenosis, dissection, AAA, pancreatitis, peptic ulcer disease, pyelonephritis, kidney stone, this is not meant to be an all-inclusive list. EKG interpreted by me (3pts min.). @ -As above X-rays interpreted by me (1pt min.). @ -None done CT interpreted by me (1pt min.). @ -CT lumbar spine reveals the chronic degenerative changes of the lumbar spine and disc herniation. U/S interpreted by me (1pt. min.). @ -None done What testing was considered but not performed or refused? (CT, X-rays, U/S, labs)? Why? @ -None What meds were considered but not given or refused? Why? @ -None Did you discuss the management of the patient with other professionals (professionals i.e. , PA, [employer]PARATION WORKER, lab, RT, psych nurse, sexual assault social worker, laborer wrecking and salvaging, teacher, gifts officer, case consultant)? Give summary @ -Discussed with the admitting provider, Dr. Resendiz who requested the admi ssion onto his service. Requested medicine consult. Spoke with Dr. Britton of [facility] who accepted the consult. Was smoking cessation discussed for >3mins.? @ -No Was critical care preformed (if so, how long)? @ -No Were there social determinants of health that impacted care today? How? (Homelessness, low income, unemployed, alcoholism, drug addiction, transportation, low edu. Level, literacy, decrease access to med. care, senior living, rehab)? @ -No Was there de-escalation of care discussed even if they declined (Discuss DNR or withdrawal of care, Hospice)? DNR status @ -No What co-morbidities impacted this encounter? (DM, HTN, Smoking, COPD, CAD, Cancer, CVA, ARF, Chemo, Hep., AIDS, mental health diagnosis, sleep apnea, morbid obesity)? @ -Chronic lumbar spine pain Was patient admitted / discharged? Hospital course, mention meds given and route, prescriptions, significant lab abnormalities, going to OR and other pertinent info. @ -Patient presents for admission to Dr. Resendiz for surgery tomorrow. She has had worsening pain. No red flag symptoms for cauda equina syndrome. Vitals within acceptable limits. We will obtain basic labs, CT lumbar spine, admit the patient. She was in agreement this plan. Dr. Resendiz called ahead and requested admission under his service. Patient made n.p.o. after midnight. Medicine will be consulted. EKG shows no signs of acute ischemia. Imaging redemonstrates chronic findings of the lumbar spine. Labs remarkable for mild leukocytosis of 14. Remainder the labs unremarkable. Patient will be admitted at this time. Spoke with the consulting team for medicine, Dr. Britton who accepted the consult. Undiagnosed new problem with uncertain prognosis? @ -No Drug Therapy requiring intensive monitoring for toxicity (Heparin, Nitro, Insulin, Cardizem)? @ -No Were any procedures done? @ -No Diagnosis/symptom? @ -Lumbar disc herniation, mechanical back pain Acute, or Chronic, or Acute on Chronic? @ -Acute on chronic Uncomplicated (without systemic symptoms) or Complicated (systemic symptoms)? @ -Complicated Side effects of treatment? @ -No Exacerbation, Progression, or Severe Exacerbation? @ -No Poses a threat to life or bodily function? How? (Chest pain, [place], [place], pneumonia, PE, COPD, DKA, ARF, appy, cholecystitis, CVA, Diverticulitis, Homicidal, Suicidal, threat to staff... and all critical care pts) @ -Yes - Lab Data Result diagrams: 04/16/24 12:46 04/16/24 12:46 Lab Results 04/16/24 04/16/24 04/16/24 Range/Units 12:46 12:46 12:46 WBC 14.3 H (3.8-10.6) k/uL RBC 4.84 (3.80-5.40) m/uL Hgb 16.1 H (11.4-16.0) gm/dL Hct 48.2 H (34.0-46.0) % MCV 99.7 (80.0-100.0) fL MCH 33.3 (25.0-35.0) pg MCHC 33.4 (31.0-37.0) g/dL RDW 13.4 (11.5-15.5) % Plt Count 312 (150-450) k/uL MPV 7.9 Neutrophils % 90 % Lymphocytes % 6 % Monocytes % 3 % Eosinophils % 0 % Basophils % 0 % Neutrophils # 12.8 H (1.3-7.7) k/uL Lymphocytes # 0.9 L (1.0-4.8) k/uL Monocytes # 0.5 (0-1.0) k/uL Eosinophils # 0.1 (0-0.7) k/uL Basophils # 0.0 (0-0.2) k/uL Manual Slide Review Performed PT 10.1 (10.0-12.5) sec INR 0.9 (<1.2) APTT 21.4 L (22.0-30.0) sec Sodium 138 (137-145) mmol/L Potassium 5.3 H (3.5-5.1) mmol/L Chloride 103 (98-107) mmol/L Carbon Dioxide 27 (22-30) mmol/L Anion Gap 8 mmol/L BUN 19 H (7-17) mg/dL Creatinine 0.57 (0.52-1.04) mg/dL Est GFR (CKD-EPI)AfAm >90 (>60 ml/min/1.73 sqM) Est GFR (CKD-EPI)NonAf >90 (>60 ml/min/1.73 sqM) Glucose 121 H (74-99) mg/dL Calcium 9.3 (8.4-10.2) mg/dL Total Bilirubin 1.3 (0.2-1.3) mg/dL AST 30 (14-36) U/L ALT 18 (4-34) U/L Alkaline Phosphatase 55 (38-126) U/L Total Protein 6.1 L (6.3-8.2) g/dL Albumin 3.8 (3.5-5.0) g/dL - EKG Data -: EKG Interpreted by Me EKG Comments: 12-lead Electrocardiogram Interpretation Note EKG was reviewed and interpreted by myself. 12-lead ECG performed at 1151 is interpreted by me as revealing normal sinus rhythm at a rate of 66 beats per minute. [place] is left deviated. [place] interval is 163 ms, QRS duration is 80 ms, QTc is 4 and 28 ms.. There were no ST or T wave abnormalities to suggest myocardial ischemia or injury. R wave progression across the precordium was satisfactory. By my interpretation this EKG is non-diagnostic for acute ischemia. Disposition Clinical Impression: Mechanical back pain, Lumbar disc herniation Disposition: ADMITTED IP TO THIS HOSP Condition: Stable Time of Disposition: 13:00
[2024-04-16 13:33] LABS: Basophils % (A) 0 %; Eosinophils # (A) 0.1 k/uL (0-0.7); Eosinophils % (A) 0 %; HCT 48.2 % (34.0-46.0); HGB 16.1 gm/dL (11.4-16.0); Lymphocytes # (A) 0.9 k/uL (1.0-4.8); Lymphocytes % (A) 6 %; MCH 33.3 pg (25.0-35.0); MCHC 33.4 g/dL (31.0-37.0); MCV 99.7 fL (80.0-100.0); Mean Platelet Volume 7.9; Monocytes # (A) 0.5 k/uL (0-1.0); Monocytes % (A) 3 %; Neutrophils # (A) 12.8 k/uL (1.3-7.7); Neutrophils % (A) 90 %; Platelet Count 312 k/uL (150-450); RBC 4.84 m/uL (3.80-5.40); RDW 13.4 % (11.5-15.5); WBC 14.3 k/uL (3.8-10.6)
[2024-04-16 13:39] LABS: INR 0.9 (<1.2); Partial Thromboplastin Time 21.4 sec (22.0-30.0); Prothrombin Time 10.1 sec (10.0-12.5)
[2024-04-16 13:41] LABS: ALT 18 U/L (4-34); African American GFR (CKD) >90 (>60 ml/min/1.73 sqM); Albumin 3.8 g/dL (3.5-5.0); Anion Gap 8 mmol/L; Blood Urea Nitrogen 19 mg/dL (7-17); Calcium 9.3 mg/dL (8.4-10.2); Carbon Dioxide 27 mmol/L (22-30); Chloride 103 mmol/L (98-107); Glucose 121 mg/dL (74-99); Non-African American GFR(CKD) >90 (>60 ml/min/1.73 sqM); Sodium 138 mmol/L (137-145); Total Bilirubin 1.3 mg/dL (0.2-1.3); Total Protein 6.1 g/dL (6.3-8.2)
[2024-04-16 13:53] LABS: AST 30 U/L (14-36); Alkaline Phosphatase 55 U/L (38-126); Potassium 5.3 mmol/L (3.5-5.1)
[2024-04-16] MEDS ORDERED: methocarbamoL 750 MG TAB PO PRN (14:02)
[2024-04-16] MEDS: SODIUM CHLORIDE 0.9% 1,000 ML IV SCH (14:30)
[2024-04-16] MEDS: ONDANSETRON 4 MG/2 ML VIAL IVP PRN (14:31)
[2024-04-16] MEDS: MORPHINE SULFATE 4 MG/ML SYRINGE IV PRN (14:33)
--- NOTE | 2024-04-16 14:44 | XR ---
EXAMINATION TYPE: XR chest 1V portable DATE OF EXAM: 04/16/2024 COMPARISON: 08/19/2022 HISTORY: Pain TECHNIQUE: Single frontal view of the chest is obtained. FINDINGS: A limited inspiration with ectasia of the aorta. No overt failure or pneumothorax. Diffuse osteopenia and arthropathy of the shoulders. IMPRESSION: No acute process. [facility], , 04/16/2024 2:41 PM
[2024-04-16] MEDS: GABAPENTIN 300 MG CAP PO SCH (15:32)
[2024-04-16 15:37] LABS: Appearance,Urine Clear (Clear); Bilirubin,Urine Negative (Negative); Blood,Urine Negative (Negative); Color,Urine Colorless; Glucose,Urine (UA) Negative (Negative); Ketones,Urine Negative (Negative); Leukocyte Esterase,Urine Small (Negative); Mucus,Urine Occasional /hpf; Nitrite,Urine Negative (Negative); PH, Urine 6.5 (5.0-8.0); Protein,Urine Negative (Negative); RBC,Urine <1 /hpf (0-5); Specific Gravity,Urine 1.009 (1.001-1.035); Squamous Epithelial Cell,Urine <1 /hpf (0-4); Urobilinogen,Urine <2.0 mg/dL (<2.0); WBC,Urine 3 /hpf (0-5)
--- NOTE | 2024-04-16 17:54 | P.HPOR ---
History of Present Illness H&P Date: 04/16/24 Chief Complaint: Lower extremity weakness acute progressive low back pain 78-year-old female presents emergency department today with complaints of acute progressive lower extremity weakness low back pain radiculopathy and debility. Patient was seen by myself in office last week for her issues. She has had low back pain for several years however it has been progressive over the last month or so. She presented in the office and was having difficulty with ambulation for the last 4 days. She was in the emergency department last week for similar issues and was advised to stay and be admitted however she refuses this at this time. She then presented to my office in excruciating pain essentially nonambulatory. We tried to get her to the emergency department this day as well however she refused as well. We discussed her signs and symptoms is in the office as well as her imaging. Case of progressive low back pain and lower extremity pain weakness and debility secondary to this. She states that she has done multiple conservative treatments including outpatient physical therapy inpatient physical therapy pain medication and anti-inflammatories and injections over the counter medications massaging chiropractics all which have failed to alleviate her symptoms. At the time she presented with her friend in the room and corroborated story states that she has not been taking care of her over the past 2 weeks due to her increased pain and has been essentially her felt puller due to her debility. She states continued and progressive pain despite these treatments. She states that she is having difficulty with urination however she has not had urinary incontinence as of now. She states that she has had difficulty with bowel movements and has not had one in several days. Denies any trauma to the area. Denies any fevers chills shortness breath or chest pain. Denies any perineal numbness or tingling at this time. Review of Systems 14 points review of systems completed and as stated in HPI, all other systems reviewed are negative. Past Medical History Past Medical History: Deep Vein Thrombosis (DVT), GERD/Reflux, Hyperlipidemia, Pulmonary Embolus (PE), Thyroid Disorder, Vascular Disorder Additional Past Medical History / Comment(s): Hx colon polyps. Hx PE bilateral lungs 2022. Possible Sleep Apnea. History of Any Multi-Drug Resistant Organisms: None Reported Past Surgical History: Orthopedic Surgery Additional Past Surgical History / Comment(s): Face lift, bilateral knee - torn meniscus repair, bilateral thumb tendons replaced, colonoscopy. Past Anesthesia/Blood Transfusion Reactions: Motion Sickness, Postoperative Nausea & Vomiting (PONV) Additional Past Anesthesia/Blood Transfusion Reaction / Comment(s): No hx blood transfusion. Past Psychological History: No Psychological Hx Reported Smoking Status: Never smoker Past Alcohol Use History: None Reported Past Drug Use History: None Reported - Past Family History Mother Family Medical History: Deep Vein Thrombosis (DVT) Father Family Medical History: Cancer, Deep Vein Thrombosis (DVT) Medications and Allergies Home Medications Medication Instructions Recorded Confirmed Type Montelukast [Singulair] 10 mg PO HS 12/05/14 04/16/24 History Multivitamins, Thera [Multivitamin 1 tab PO DAILY@1200 12/05/14 04/16/24 History (formulary)] Simvastatin [Zocor] 20 mg PO HS 12/05/14 04/16/24 History Calcium Carbonate [Calcium] 600 mg PO DAILY@1200 08/18/22 04/16/24 History Cetirizine HCl [Zyrtec] 10 mg PO DAILY@1200 08/18/22 04/16/24 History Cholecalciferol [Vitamin D3 (25 25 mcg PO DAILY@1200 08/18/22 04/16/24 History Mcg = 1000 Iu)] Liothyronine Sodium [Cytomel] 5 mcg PO BID 08/18/22 04/16/24 History cycloSPORINE 0.05% OPHTH SOLN 1 applicator BOTH EYES Q12H 08/18/22 04/16/24 History [Restasis] guaiFENesin [Mucinex] 600 mg PO BID 08/18/22 04/16/24 History Famotidine [Pepcid] 20 mg PO BID #60 tablet 08/21/22 04/16/24 Rx Cyclobenzaprine [Flexeril] 10 mg PO TID PRN #15 tab 04/08/24 04/16/24 Rx Folic Acid 0.4 mg PO DAILY@1200 04/08/24 04/16/24 History Lidocaine 5% Patch [Lidoderm 5% 1 patch TOPICAL DAILY PRN 7 Days 04/08/24 04/16/24 Rx Patch] #7 patch Ondansetron [Zofran] 4 mg PO TID PRN 04/08/24 04/16/24 History Sennosides [Senokot] 34.4 mg PO HS 04/08/24 04/16/24 History Spironolactone [Aldactone] 100 mg PO DAILY 04/08/24 04/16/24 History Triamcinolone 0.1% Cream [Kenalog 1 applic TOPICAL BID PRN 04/08/24 04/16/24 History 0.1% Cream] Zolpidem [Ambien] 10 mg PO HS 04/08/24 04/16/24 History polyethylene glycoL 3350 [Miralax] 17 gm PO DAILY 04/08/24 04/16/24 History methocarbamoL [Robaxin-750] 1,500 mg PO TID PRN #30 tab 04/09/24 04/16/24 Rx Gabapentin 300 mg PO TID 04/16/24 04/16/24 History Levothyroxine Sodium [Synthroid] 75 mcg PO DAILY 04/16/24 04/16/24 History predniSONE [Deltasone] 20 mg PO BID 04/16/24 04/16/24 History Allergies Allergy/AdvReac Type Severity Reaction Status Date / Time levofloxacin [From Levaquin] Allergy Swelling Verified 04/16/24 13:05 moxifloxacin HCl Allergy Swelling Verified 04/16/24 13:05 [From Avelox] Sulfa (Sulfonamide Allergy Swelling Verified 04/16/24 13:05 Antibiotics) aspartame AdvReac headaches Verified 04/16/24 13:05 Physical Examination Osteopathic Statement: *. No significant issues noted on an osteopathic structural exam other than those noted in the History and Physical/Consult. PHYSICAL EXAMINATION: Vitals: Stable at this time afebrile General: Awake, alert, appropriate for age, in no acute distress. HEENT: No unusual neck masses around region of lateral neck triangle, thyroid, supraclavicular groove. Extremities: Skin warm and dry without no acute lesions, coloration, temperature, skin intact, no tenderness or erythema. Integument: Hairy patches: Absent Dorsal skin dimples: Absent Cafe au lait spots: Absent Surgical incisions: None Palpation: Please see Pain drawing on Intake sheet for further detail. (Tenderness = T, Nontender = NT, Swelling = S, Ecchymosis = E) Findings on Midline and paraspinal palpation and percussion: Cervical: NT Thoracic: NT Lumbar: TTP Sacral: TTP Special findings: Midline spinal tenderness over the L2 through L4 region POSTURAL and MUSCULO-SKELETAL EVALUATION: Coronal Balance: Neutral Recumbent testing: Patient can lay flat on back Sagittal Balance: Positive Shoulder Profile: [Level] Pelvic Girdle: [Level] Neck ROM: [Unrestricted in six directions] Lumbar ROM: Restricted with pain Shoulder ROM: Symmetric in abduction, ER/IR Hip ROM: Symmetric in abduction, adduction, ER/IR Knee ROM: Symmetric and intact in Flexion / extension Hands: Normal appearing structure L and R Feet: Normal appearing structure L and R VASCULAR STATUS : Wrist Pulses: [2/4 bilateral radial and ulnar] Pedal Pulses: [2/4 bilateral DP and PT] Color: [Normal] Edema: Bilateral lower extremity wound plus NEUROLOGIC EXAMINATION: Mental Status: Awake and alert, fully oriented, with normal attention, concentration and memory, and fluent, appropriate speech. Cranial Nerves: I: Olfactory not tested. II: Visual acuity normal, no visual field deficit noted with confrontation. III,IV: Normal pupillary reflexes & intact extraocular movements without nystagmus. V,: Intact symmetrical facial sensation. VII: Intact symmetrical facial motor movement VIII: Hearing intact. IX,X: Intact gag, swallow, & normal voice. XI: Sternocleidomastoid, trapezius function intact. XII: Tongue midline with normal movements. Special Tests: L'hermitte's Sign: Absent Spurling'Sign: Absent Bilateral Cubital percussion test: Absent Bilateral Yandy-Tinel sign - Carpal region: Absent Bilateral Straight Leg Raising: Absent Bilateral Motor Exam (0-5/5, N/T) STRENGTH UPPER EXTREMITY [5]/5 in all major muscle groups of the UE b/l LOWER EXTREMITY 4 minus/5 in all major muscle groups of the LE b/l -Foot drop left lower extremity 3 out of 5 dorsiflexion REFLEXES Upper Extremity: RIGHT [2]/4 LEFT [2]/4 Lower Extremity: RIGHT 1/4 LEFT 1/4 Pathological Reflexes Camacho's: RIGHT [Absent] LEFT [Absent] Babinski: RIGHT [Absent] LEFT [Absent] Clonus: RIGHT [None] LEFT [None] SENSORY Pain and LT sense [Intact C5-T1 and L2-S1] Dermatomal deficit L2 through L4 bilateral Gait and Functional Evaluation: Unable to assess gait due to patient's ambulation status Ambulatory aids: wheelchair Results MRI lumbar spine 02/28/2024 Reviewed this demonstrates severe spondylosis from L2 through L5 with grade 1 unstable spondylolisthesis L4-L5 with severe disc collapse severe spondylosis and severe stenosis. Severe stenosis noted from L2-3 and L3 4 due to degen erative disc changes as well as degenerative disc herniation ligamental hypertrophy and facet hypertrophy causing severe central and bilateral foraminal stenosis. Facet cysts are noted at L4-L5 bilaterally which are also causing severe stenotic features. No acute fractures are noted at this time decreased lumbar lordosis overall secondary to the collapse. Nerve root turbulence noted secondary to the severe stenosis. CT lumbar spine 04/16/2024 Images reviewed. Again severe spondylosis noted from L1 through L5 with severe degenerative disc collapse subchondral cyst formation L1-L2 as well as L2-L3. L3 4 vacuum disc phenomenon at L4 5 grade 1 unstable spondylolisthesis severe facet arthrosis throughout. Bilateral foraminal stenosis related large disc herniation L2-L3 L3-L4 concerning to stenotic features as well as disc collapse facet arthrosis and overgrowth. X-ray lumbar spine and pelvis 12/25/2023 findings mimic that of the MRI and computed tomography scan with unstable spondylolisthesis L4-L5 severe collapse L1 through L5 with spondylosis stenosis bilateral foraminal as well as central facet arthropathy - Labs Labs: Abnormal Lab Results - Last 24 Hours (Table) 04/16/24 04/16/24 04/16/24 Range/Units 12:46 12:46 12:46 WBC 14.3 H (3.8-10.6) k/uL Hgb 16.1 H (11.4-16.0) gm/dL Hct 48.2 H (34.0-46.0) % Neutrophils # 12.8 H (1.3-7.7) k/uL Lymphocytes # 0.9 L (1.0-4.8) k/uL APTT 21.4 L (22.0-30.0) sec Potassium 5.3 H (3.5-5.1) mmol/L BUN 19 H (7-17) mg/dL Glucose 121 H (74-99) mg/dL Total Protein 6.1 L (6.3-8.2) g/dL Ur Leukocyte Esterase (Negative) Urine Mucus (None) /hpf 04/16/24 Range/Units 15:18 WBC (3.8-10.6) k/uL Hgb (11.4-16.0) gm/dL Hct (34.0-46.0) % Neutrophils # (1.3-7.7) k/uL Lymphocytes # (1.0-4.8) k/uL APTT (22.0-30.0) sec Potassium (3.5-5.1) mmol/L BUN (7-17) mg/dL Glucose (74-99) mg/dL Total Protein (6.3-8.2) g/dL Ur Leukocyte Esterase Small H (Negative) Urine Mucus Occasional H (None) /hpf H & H 04/16/24 Range/Units 12:46 Hgb 16.1 H (11.4-16.0) gm/dL Hct 48.2 H (34.0-46.0) % Coagulation 04/16/24 Range/Units 12:46 INR 0.9 (<1.2) Result Diagrams: 04/16/24 12:46 04/16/24 12:46 Assessment and Plan (1) Spondylolisthesis at L4-L5 level Current Visit: Yes Status: Acute Code(s): M43.16 - SPONDYLOLISTHESIS, LUMBAR REGION SNOMED Code(s): 133224111649588 (2) Lumbar spondylosis with myelopathy Current Visit: Yes Status: Acute Code(s): M47.16 - OTHER SPONDYLOSIS WITH MYELOPATHY, LUMBAR REGION SNOMED Code(s): 13352508 (3) Lower extremity weakness Current Visit: Yes Status: Acute Code(s): R29.898 - OTH SYMPTOMS AND SIGNS INVOLVING THE MUSCULOSKELETAL SYSTEM SNOMED Code(s): 191865510 (4) Mechanical back pain Current Visit: Yes Status: Acute Code(s): M54.9 - DORSALGIA, UNSPECIFIED SNOMED Code(s): 265678454 (5) Left lumbar radiculopathy Current Visit: No Status: Acute Code(s): M54.16 - RADICULOPATHY, LUMBAR REGION SNOMED Code(s): 720934098 Plan: Spine Surgery Clinical and Risk Review Mee Cohen is a 78-year-old female presenting for evaluation of aggressive lower extremity pain low back pain weakness neurogenic claudication. It was my pleasure to have seen and examined Mee Cohen. In our visit today we have had a chance to go over subjective complaints, physical examination findings and treatments including the natural course history without intervention and various interventional options. The patients imaging demonstrates severe spondylosis and spondylotic collapse wi th central and bilateral foraminal stenosis is severe from L1 through L5. Grade 1 spondylolisthesis unstable L4-L5 and L3 to 4. On physical exam, Mee Cohen demonstrates neurogenic claudication severe progressive changes in the lower extremities as well as weakness and radiculopathy and severe progressive low back pain. I have explained to the patient that as their condition progresses it will cause further neurological deficits and eventual paralysis. Based on the patients imaging, physical exam, and the rapid progression and disabling nature of their symptoms, at this time I recommend surgery in the form or a: L1 through L5 posterior lateral and interbody decompression fusion. I discussed the risk and benefits of this procedure at length with Mee Cohen. The patient friend agreed to considered pursuing the procedure abovementioned. Prior to surgery, she should follow up with her PCP (Cardio, ID, IM etc) for clearance. Questions were invited and answered, and the patient wishes to proceed as outlined below. Currently, I am recommendin. L1 through L5 posterior lateral and interbody decompression fusion 2. Follow up with PCP for surgical clearance 3. Review of surgical risks and benefits as well as an educational packet on the proposed surgical procedure. Risks: All surgical procedures come with inherent risks, including those related to positioning, anesthesia, intraoperative findings, and postoperative complications. It is important to understand that surgery does not come with any guarantee of a successful outcome as complications and adverse events are always possible. The patient was given a handout in office today discussing the surgical procedur e and risks associated with the intervention, both of which were discussed with the patient. These risks include but are not limited to the following: * Experiencing same, different or even worse symptoms in back, neck, arms, or legs compared to before surgery. * Requiring further surgery or other forms of treatment presently or at some time in the future at same or other levels of the intended spine surgery. * On an extreme but fortunately relatively rare basis severe complication such as blindness, stroke, heart attack, temporary and/or permanent nerve injury, paralysis, coma, or may occur, sometimes without known explanation. * Surgical complications may include but are not limited to risk of infection, fluid accumulation in the surgical dissection site, including a seroma or hematoma, that requires additional surgery, wound drainage, bleeding, new numbness or weakness, vision changes/loss, spinal fluid leakage, non-healing and/or infected incision, headaches, difficulty or inability to swallow, hoarseness, hemopneumothorax, pneumothorax, impotence, retrograde ejaculation, vaginal dryness; injury to nerves, spinal cord, blood vessels, lymphatics or other vital organs (i.e., bowel injury, injury to the great vessels); heterotopic bone formation; complications related to the hardware such as screws, rods, cages including misplaced hardware, device failure, instrumentation at the wrong spine level, hardware fracture/breakage, or hardware loosening; vertebral failure of the spinal column above or below the newly placed hardware; retained surgical instrumentations or devices and the need for further surgery. * Medical risks of the planned spine surgery include but are not limited to generalized Infections to the whole body or local areas outside of the surgical site (sepsis), heart attack, bleeding, anaphylaxis, meningitis, seizure, epilepsy, hearing loss, burn hess, laceration of the head or other areas of the body, bruising, hypersensitivity of the skin, bladder over distension; allergic reaction; shoulder injury related to positioning; fat, blood and air clots to other areas of the body like heart, lungs, brain; failure of internal organs such as lungs, kidneys, liver and excessive bleeding. If blood transfusions are necessary, note that transfusions may cause intolerance reactions such as anaphylaxis or other complex reactions. * Despite best efforts, the results of spine surgery might not heal in terms of bone, soft tissues such as skin, fascia, ligaments, and joints. Additionally, in order to achieve best possible results, spine surgery may be carried out beyond the initially planned levels and involve decompression, fusion including insertion of hardware at levels other than the original intended area of surgical interest change some portions of the procedure in order to ensure the best possible outcomes. * With spine surgery and spinal fusion, there are different off label uses of instrumentation (devices, implants and hardware) as well as biological substances (bone morphogenic proteins, demineralized bone matrix) as well as using extra bone from allograft sources (i.e. cadaver bone) or autograft (vaibhav ac crest bone, ribs, or the spine itself). The patient has been given information about these practices and their inherent risks and benefits. The patient has had a chance to review all the listed information, has been given print outs detailing this information, and has had all his/her questions answered to their satisfaction. It was my pleasure to have seen and examined Mee Cohen. In our visit today we have had a chance to go over my understanding of our patient's current condition, the natural course history without intervention and various interventional options. Questions were invited and answered, and the patient wishes to proceed as outlined above. I have seen and examined the patient for 25 minutes and we have spent more than 50% of the time in repeat and detailed counseling about the patient's condition, its natural course history with out and as much as can be predicted with surgery and re-review of various surgical treatment options. In conclusion, Mee Cohen and her friend requested we proceed with the above suggested surgery and are willing to accept risks and limitations of the suggested surgery as nature of the disease process and our best attempts at treatment for the condition. Thank you again for allowing us to be part of your patient's care. Please don't hesitate to contact me if you have any further questions. Signed and authenticated by: Ryan [facility]once [facility] [address] [address]
[2024-04-16] MEDS: CYCLOBENZAPRINE 10 MG TAB PO PRN (18:41)
[2024-04-16] MEDS: guaiFENesin 600 MG TABLET.ER PO SCH (20:35)
[2024-04-16] MEDS: MONTELUKAST 10 MG TAB PO SCH (20:35)
[2024-04-16] MEDS: ATORVASTATIN 10 MG TAB PO SCH (20:35)
[2024-04-16] MEDS: predniSONE 20 MG TAB PO SCH (20:35)
[2024-04-16] MEDS: FAMOTIDINE 20 MG TAB PO SCH (20:35)
[2024-04-16] MEDS: SENNOSIDES 8.6 MG TAB PO SCH (20:36)
[2024-04-16] MEDS: ZOLPIDEM 5 MG TAB PO SCH (21:04)
[2024-04-16] MEDS: cycloSPORINE 0.05% OPHTH 0.4 ML DROPERETTE BOTH EYES SCH (21:48)
[2024-04-16] MEDS: LIOTHYRONINE SODIUM 5 MCG TAB PO SCH (21:48)
--- NOTE | 2024-04-17 00:28 | CONS ---
CONSULTATION REASON FOR CONSULTATION: Preoperative clearance as well as advice regarding DVT and PE. HISTORY OF PRESENT ILLNESS: This is a 78-year-old woman with a past medical history of GERD, hyperlipidemia, PE, DVT, being followed by Bri Steele in the outpatient setting for severe back pain. The patient has lumbar disk herniation. Dr. Perez is planning surgery. There is no history of fever, rigors, or chills. PAST MEDICAL HISTORY: DVT, PE. Rest of the chart is also reviewed. HOME MEDICATIONS: Reviewed include Robaxin. Dose and rest of medications reviewed. ALLERGIES: Levaquin. FAMILY HISTORY: History of DVT. SOCIAL HISTORY: No history of smoking, alcohol. REVIEW OF SYSTEMS: Fourteen-point review is negative as mentioned.. PHYSICAL EXAMINATION: VITAL SIGNS: Pulse is 73, blood pressure , and respirations 16. HEENT: Conjunctivae normal. NECK: No JVD. CARDIOVASCULAR: S1, S2. RESPIRATIONS: Breath sounds diminished at the bases. No rhonchi. No crackles. ABDOMEN: Soft, nontender. LEGS: No edema. Leg movements are painful. NERVOUS SYSTEM: Nonfocal. LABORATORY DATA: WBC 14.7. ASSESSMENT: 1. Severe back pain, lumbar disk herniation. 2. History of DVT, PE. 3. Gastroesophageal reflux disease. 4. Family history of DVT. RECOMMENDATION: This 78-year-old woman presented with multiple complex medical issues, we will monitor the patient closely. I would recommend to resume the home medications, DVT prophylaxis, because of strong family and personal history of DVT. Resume the home medications, pain management. Guarded prognosis because of multiple complex medical problems. See orders for details. MMODL / IJN: [id number] /
[2024-04-17] MEDS ORDERED: TRANEXAMIC 1,000 MG/100ML-NACL 1,000 MG in SALINE 1 100ML.BAG IVPB PRN (05:00)
[2024-04-17] MEDS ORDERED: GABAPENTIN 300 MG CAP PO PRN (05:00)
[2024-04-17] MEDS ORDERED: ACETAMINOPHEN TAB 500 MG TAB PO PRN (05:00)
[2024-04-17] MEDS: LEVOTHYROXINE 75 MCG TAB PO SCH (06:05)
[2024-04-17 06:07] LABS: Basophils % (A) 0 %; Eosinophils % (A) 0 %; HCT 49.1 % (34.0-46.0); HGB 15.5 gm/dL (11.4-16.0); Lymphocytes # (A) 0.9 k/uL (1.0-4.8); Lymphocytes % (A) 7 %; MCH 32.6 pg (25.0-35.0); MCHC 31.6 g/dL (31.0-37.0); Macrocytosis Slight; Mean Platelet Volume 7.2; Monocytes # (A) 0.6 k/uL (0-1.0); Monocytes % (A) 5 %; Neutrophils # (A) 10.8 k/uL (1.3-7.7); Neutrophils % (A) 87 %; Platelet Count 312 k/uL (150-450); RBC 4.77 m/uL (3.80-5.40); RDW 13.1 % (11.5-15.5); WBC 12.4 k/uL (3.8-10.6)
[2024-04-17 06:24] LABS: ALT 16 U/L (4-34); AST 18 U/L (14-36); African American GFR (CKD) >90 (>60 ml/min/1.73 sqM); Albumin 3.7 g/dL (3.5-5.0); Albumin/Globulin Ratio 1.9; Alkaline Phosphatase 75 U/L (38-126); Anion Gap 4 mmol/L; Blood Urea Nitrogen 17 mg/dL (7-17); Calcium 9.2 mg/dL (8.4-10.2); Carbon Dioxide 26 mmol/L (22-30); Chloride 105 mmol/L (98-107); Glucose 137 mg/dL (74-99); Non-African American GFR(CKD) 87 (>60 ml/min/1.73 sqM); Sodium 135 mmol/L (137-145); Total Bilirubin 1.3 mg/dL (0.2-1.3); Total Protein 5.7 g/dL (6.3-8.2)
[2024-04-17] MEDS: IV FLUID CONTINUATION 1,000 ML IV ONE ×2 (07:47→08:14)
[2024-04-17] MEDS: LACTATED RINGERS 1,000 ML BAG IV STA (08:17)
[2024-04-17] MEDS: ONDANSETRON 4 MG/2 ML VIAL IVP PRN (08:51)
[2024-04-17] MEDS: MIDAZOLAM 2 MG/2 ML VIAL IV ONE ×2 (08:53)
[2024-04-17] MEDS: DEXAMETHASONE SOD PHOSPHATE 4 MG/ML 1 ML VIAL IVP STA (09:10)
[2024-04-17] MEDS ORDERED: SUCCINYLCHOLINE CHLORIDE 200 MG/10 ML VIAL IV ONE (09:55)
[2024-04-17] MEDS ORDERED: NEOSTIGMINE 1 MG/ML 10 ML VIAL ONE (09:55)
[2024-04-17] MEDS ORDERED: ALBUMIN HUMAN 5% (25gm) 500 ML VIAL IVPB ONE (09:55)
[2024-04-17] MEDS ORDERED: KETAMINE HCL IN 0.9 % NACL 50 MG/5 ML SYRINGE ONE (09:55)
[2024-04-17] MEDS ORDERED: HYDROmorphone (PF) 1 MG/ML ONE (09:55)
[2024-04-17] MEDS ORDERED: PROPOFOL 10 MG/ML 20 ML VIAL IV ONE (09:55)
[2024-04-17] MEDS ORDERED: ROCURONIUM 10 MG/ML (5 ML VIAL) IV ONE (09:55)
[2024-04-17] MEDS ORDERED: LIDOCAINE 1% INJ 10MG/ML (20 ML MDV) ONE (09:55)
[2024-04-17] MEDS ORDERED: TRANEXAMIC 1,000 MG/100ML-NACL PREMIX BAG ONE (09:55)
[2024-04-17] MEDS ORDERED: PHENYLEPHRINE 10 MG/ML VIAL ONE (09:55)
[2024-04-17] MEDS ORDERED: GLYCOPYRROLATE 0.2 MG/ML 2 ML VIAL ONE (09:55)
[2024-04-17] MEDS ORDERED: fentaNYL (PF) 50 MCG/ML 2 ML AMP ONE (09:55)
[2024-04-17] MEDS: LACTATED RINGERS 1,000 ML IV ONE ×2 (10:30→11:28)
--- NOTE | 2024-04-17 10:42 | XR ---
EXAMINATION TYPE: XR chest 1V portable DATE OF EXAM: 04/17/2024 10:38 AM CLINICAL INDICATION: Female, 78 years old with history of CENTRAL LINE PLACEMENT; COMPARISON: Chest radiographs from 04/16/2024 TECHNIQUE: XR chest 1V portable Frontal view of the chest. FINDINGS: Lungs/Pleura: There is no evidence of pleural effusion, focal consolidation, or pneumothorax. Pulmonary vascularity: Unremarkable. Heart/mediastinum: Cardiomediastinal silhouette is unremarkable. Musculoskeletal: No acute osseous pathology. Other findings: None Lines/Tubes: Right internal jugular central venous catheter with distal tip at the cavoatrial junction. IMPRESSION: No acute cardiopulmonary disease/process. [facility], , 04/17/2024 10:40 AM
[2024-04-17] MEDS: THROMBIN (BOVINE) 5,000 UNIT VIAL TOPICAL ONE (10:48)
--- NOTE | 2024-04-17 11:52 | P.PN ---
Subjective Progress Note Date: 04/17/24 This is a pleasant 78-year-old female who presents for severe back pain with known history of lumbar disc herniation. Patient is scheduled to undergo L1-L5 decompression and stabilization today with Dr. Resendiz. Resumed all appropriate home medications. Is maintained on Eliquis chronically on an outp atient basis which is currently on hold at this time secondary to planned lumbar surgery and will recommend to be resumed as soon as possible after surgery when cleared by orthopedics. Labs today reveal a white blood cell count of 10.4, hemoglobin 15.5, sodium level of 135, potassium 5.0, BUN of 17, creatinine of 0.65. Urinalysis was within normal limits. Review of Systems Constitutional: Denied any fatigue denied any fever. Cardio vascular: denied any chest pain, palpitations Gastrointestinal: denied any nausea, vomiting, diarrhea Pulmonary: Denied any shortness of breath cough Neurologic denied any new focal deficits All inpatient medications were reviewed and appropriate changes in these medications as dictated in the interval history and assessment and plan PHYSICAL EXAMINATION: GENERAL: The patient is alert and oriented x3, not in any acute distress. Well developed, well nourished. HEENT: Pupils are round and equally reacting to light. EOMI. No scleral icterus. No conjunctival pallor. Normocephalic, atraumatic. No pharyngeal erythema. No thyromegaly. CARDIOVASCULAR: S1 and S2 present. No murmurs, rubs, or gallops. PULMONARY: Chest is clear to auscultation, no wheezing or crackles. ABDOMEN: Soft, nontender, nondistended, normoactive bowel sounds. No palpable organomegaly. MUSCULOSKELETAL: No joint swelling or deformity. EXTREMITIES: No cyanosis, clubbing, or pedal edema. NEUROLOGICAL: Gross neurological examination did not reveal any focal deficits. SKIN: No rashes. Assessment and plan Severe back pain with lumbar disc herniation scheduled to undergo L1-L5 decompression and stabilization today History of DVT PE anticoagulant with Eliquis which is currently on hold for surgical intervention of the back would recommend to resume as soon as possible postsurgery when cleared by primary Gastroesophageal reflux disease History hyperlipidemia History of thyroid disorder Prophylaxis DVT prophylaxis Full code Plan Continue all same home medications with exception of Eliquis as mentioned We will stop the Aldactone today as her blood pressure did drop into the high 90s systolic Courage incentive spirometer postsurgical monitor CBC BMP Thank you for this consultation we will continue to follow along closely this hospital stay. The impression and plan of care has been dictated by Kiana Michaels, Nurse Practitioner as directed. Dr. Cole MD I have performed a history and physical examination and medical decision making of this patient, discussed the same with the dictator, and agree with the dictators assessment and plan as written, documented as a scribe. Based on total visit time, I have performed more than 50% of this visit. Objective - Vital Signs Vital signs: Vital Signs Temp 97.2 F L 04/17/24 07:48 Pulse 72 04/17/24 08:30 Resp 16 04/17/24 07:48 BP 124/87 04/17/24 07:48 Pulse Ox 98 04/17/24 08:30 FiO2 Intake & Output 04/16/24 04/17/24 04/17/24 18:59 06:59 18:59 Weight 107.501 kg 107.501 kg Other: # Voids 2 3 - Labs CBC & Chem 7: 04/17/24 03:19 04/17/24 03:19 Labs: Abnormal Lab Results - Last 24 Hours (Table) 04/16/24 04/16/24 04/16/24 Range/Units 12:46 12:46 12:46 WBC 14.3 H (3.8-10.6) k/uL Hgb 16.1 H (11.4-16.0) gm/dL Hct 48.2 H (34.0-46.0) % MCV (80.0-100.0) fL Neutrophils # 12.8 H (1.3-7.7) k/uL Lymphocytes # 0.9 L (1.0-4.8) k/uL APTT 21.4 L (22.0-30.0) sec Sodium (137-145) mmol/L Potassium 5.3 H (3.5-5.1) mmol/L BUN 19 H (7-17) mg/dL Glucose 121 H (74-99) mg/dL Total Protein 6.1 L (6.3-8.2) g/dL Ur Leukocyte Esterase (Negative) Urine Mucus (None) /hpf 04/16/24 04/17/24 04/17/24 Range/Units 15:18 03:19 03:19 WBC 12.4 H (3.8-10.6) k/uL Hgb (11.4-16.0) gm/dL Hct 49.1 H (34.0-46.0) % MCV 103.0 H (80.0-100.0) fL Neutrophils # 10.8 H (1.3-7.7) k/uL Lymphocytes # 0.9 L (1.0-4.8) k/uL APTT (22.0-30.0) sec Sodium 135 L (137-145) mmol/L Potassium (3.5-5.1) mmol/L BUN (7-17) mg/dL Glucose 137 H (74-99) mg/dL Total Protein 5.7 L (6.3-8.2) g/dL Ur Leukocyte Esterase Small H (Negative) Urine Mucus Occasional H (None) /hpf Assessment and Plan Time with Patient: Less than 30
--- NOTE | 2024-04-17 12:31 | P.ANPRN ---
Procedure Note - Anesthesia - Invasive Line Right Central Line Time Out Performed: Yes ([id number]) Date of Procedure: 04/17/24 Time of Procedure: 09:17 Location of Patient: PreOp Preparation: Sterile Prep, Sterile Dressing Central Line Location: Internal Jugular (right double lumen) Ultrasound Used: Yes Purpose - Visualization and Identification of Vasculature: Yes Needle Guage: 18g angio Image Stored and Saved: Yes Narrative: Invasive line placement per sterile protocol utilized. Anesthesia note Procedure: Right internal jugular central venous catheter insertion: Double- lumen catheter Sterile protocol followed. Right neck prepped. Ultrasound used. Lidocaine 1% used. Using ultrasound local anesthetic was instilled site over right Internal Jugular vein. Angiocath was used to gain access via ultrasound. Once free flow non-pulsatile blood flow was confirmed, 12 inch extension tubing was then placed on Angiocath. Once central venous pressure was confirmed, J-wire was then placed through Angiocath. Angiocath was then withdrawn. Local was instilled at J-wire site. Small skin dirk was then made with provided sterile scalpel. Right IJ double-lumen catheter was then inserted over the wire while maintaining control of wire at all times. Uneventful insertion with dilation. Free flow nonpulsatile blood flow through catheter hooked up to IV tubing. All lumens blood and flushed. Dressings applied. Drapes Removed. Attempts x3. Chest x-ray ordered and no pneumothorax
[2024-04-17] MEDS: ceFAZolin 3,000 MG in SODIUM CHLORIDE 0.9% IRRIGATIO 3,000 ML IRRIGATION ONE (14:18)
[2024-04-17] MEDS: GENTAMICIN 80 MG in SODIUM CHLORIDE 0.9% IRRIGATIO 3,000 ML IRRIGATION ONE (14:22)
--- NOTE | 2024-04-17 14:26 | P.OP ---
Date of Procedure: 04/17/24 Preoperative Diagnosis: Current Active Problems Spondylolisthesis at L4-L5 level (Acute) Left lumbar radiculopathy (Acute) Lumbar spondylosis with myelopathy (Acute) Lower extremity weakness (Acute) Mechanical back pain (Acute) Lumbar disc herniation (Acute) Postoperative Diagnosis: Current Active Problems Spondylolisthesis at L4-L5 level (Acute) Left lumbar radiculopathy (Acute) Lumbar spondylosis with myelopathy (Acute) Lower extremity weakness (Acute) Mechanical back pain (Acute) Lumbar disc herniation (Acute) Procedure(s) Performed: L4-5 INTRADISCAL OSTEOTOMY, 3 COLUMN, FOR DEFORMITY CORRECTION AND NEURAL DECOMPRESSION AND REDUCTION L3-4 POSTEROLATERAL AND INTERBODY FUSION L2-3 POSTEROLATERAL AND INTERBODY FUSION L1-2 POSTEROLATEARAL AND INTERBODY FUSION L4-5 POSTEROLATERAL AND INTERBODY FUSION L1-L5 SEGMENTAL INSTRUMENTATION L1-2, L2-3, L3-4, L4-5 BILATERAL LAMINECTOMY, COMPLETE FACETECTOMY AND FORAMINOTOMY FOR DECOMPRESSION, DEFORMITY CORRECTION AND CAGE PLACEMENT INSERTION OF BIOMECHANICAL DEVICES L1-2, L2-3, L3-4, L4-5; CAGES X4 USE OF [employer] NAVIGATION FOR SCREW PLACEMENT USE OF IONM MOD 22: THIS CASE TOOK 75% LONGER THAN EXPECTED DUE TO COMORBID CONDITIONS; BMI >40; EXTENT OF LUMBAR DISEASE AND HIGH TECHNICALITY OF THE CASE. Implants: -GLOBUS CREO RODS AND SCREWS -SIN TRITANIUM CAGES 8MM, 9MM, 10MM, 10MM SHORT, 9 MM WIDTH, 0, 8, 8, 8 DEG -CONTOUR, MAGNATOS EASY PACK, ALLOCELL AF, ARTHROCELL, AUTOGRAFT, DBM Anesthesia: GETA Surgeon: Ryan Resendiz Pipe Line Repairer #1: Adams Craig (WAS PRESENT AND ASSISTED WITH ALL ASPECTS OF THE CASE FROM POSITION TO CLOSURE) Estimated Blood Loss (ml): 650 IV fluids (ml): 2,300 Urine output (ml): 450 Pathology: none sent Condition: stable Disposition: PACU Indications for Procedure: Mee Cohen is a 78-year-old female presenting for evaluation of aggressive lower extremity pain low back pain weakness neurogenic claudication. It was my pleasure to have seen and examined Mee Cohen. In our visit today we have had a chance to go over subjective complaints, physical examination findings and treatments including the natural course history without intervention and various interventional options. The patients imaging demonstrates severe spondylosis and spondylotic collapse with central and bilateral foraminal stenosis is severe from L1 through L5. Grade 1 spondylolisthesis unstable L4-L5 and L3 to 4. On physical exam, Mee Cohen demonstrates neurogenic claudication severe progressive changes in the lower extremities as well as weakness and radiculopathy and severe progressive low back pain. I have explained to the patient that as their condition progresses it will cause further neurological deficits and eventual paralysis. Based on the patients imaging, physical exam, and the rapid progression and disabling nature of their symptoms, at this time I recommend surgery in the form or a: L1 through L5 posterior lateral and interbody decompression fusion. I discussed the risk and benefits of this procedure at length with Mee Cohen. The patient friend agreed to considered pursuing the procedure abovementioned. Prior to surgery, she should follow up with her PCP (Cardio, ID, IM etc) for clearance. Questions were invited and answered, and the patient wishes to proceed as outlined below. Currently, I am recommendin. L1 through L5 posterior lateral and interbody decompression fusion Description of Procedure: L1-L5 DECOMPRESSION AND FUSION (KEV) The patient was seen and examined in the preoperative area. All preoperative protocols were followed. Informed consent was obtained, risks and benefits of the procedure were discussed at length. Risks including bleeding infection damage to the surrounding tissue and risk of reoperation were discussed with the patient. Risk of anesthesia up to and including was discussed with the patient. These are outlined in the risk review. They were willing to accept these risks and all the risks of surgery. The patient was given a weight-based dose of antibiotics in the form of 3 g Ancef. The patient was seen and evaluated by the anesthesia team who deemed them fit for surgery. The site was marked, the patient was willing to proceed with the procedure. The patient was transferred to the operative suite by the Department of anesthesia. They were then drifted off to sleep by the department anesthesia and GETA was performed. The patient tolerated this well. Riggins catheter was placed by nursing staff, a-traumatically. Once confirmation of lines and ventilation the patient was transferred to a prone Trios spine table very carefully. The head was secured and stable. X Ray confirmed alignment. All bony prominences including wrists, elbows, axilla, chest, hips, and thighs, and feet were padded very well. Special attention was paid to the genitalia, and these were padded accordingly. SCDs were placed on bilateral lower extremities and were connected. Arms were well padded and placed at 90/90 up and out and well padded. Safety strap and tape placed on the patient. Once in position, again we confirmed good ventilation capabilities and that lines were running appropriately. The patients lumbosacral pelvic was then exposed. Hair was removed for incision. 1010s were placed outlining the incision site. Standard alcohol was used to clean the incision site and allowed to dry. C-arm was used to bio-juliane the patient and confirm level for incision which was marked with a skin marker. Operative briefing was performed with all teams and everyone in agreement to proceed. The patient was then prepped and draped in a normal sterile fashion. Timeout was then performed, and all parties agreed with the procedure to be performed. Midline skin incision was then made over the previously bio-marked area and dissection taken down to the lumbosacral fascia which was identified and cleaned with a yin. There was excessive sub-q adipose that was obtrusive and needed to be retracted. Once midline was identified, fasciotomy was made over the SP of T12-S1. Subperiosteal dissection was then taken down over the lamina and facet joints and TPs were exposed and trough made posterolateral. TPs were then decorticated with a high speed grace for lateral fusion. Dissection was taken out over the sacrum to the pelvis. Retractors placed. Wound was irrigated and lateral image with penfield 4 placed at the pars of L4 confirmed levels for operation. SP clamp was then placed for the [employer] navigation tracker and secured. The wound was then filled with NSS and Z-drape. A 3D Ziehm spin was then obtained and registered. Once confirmation of accuracy screws were then placed from L1-L5 bilateral using navigation. Navigated high speed grace was used to make a commercial airline pilot hole followed by a navigated awl-tap passed through the pedicle into the body. A ball tip probe then confirmed within the pedicle. Screw was then measured and placed using a navigated screwdriver. After screws were placed from L1-L5, AP image confirmed safe placement of screws. Screws were then tested, and reliably tested screws tested above 12 mA. We then proceeded to decompression and interbody placement. Starting at L4-5, bilateral laminectomy, complete facetectomy and foraminotomies were performed using high speed bur, Kerrison rongeur. There was exuberant bone formation, osteophytes and scar tissue surrounding these joints as well as the dura. A temporary amria elena was placed due to high instability at this level. Once exposed the neural elements were protected and an intradiscal osteotomy, 3 column, was performed for deformity correction at L4-5. Osteotome was used to make osteotomy in L4 and L4 and for complete disc removal. This was widened. This was passed into the anterior 1/3 of L5. This allowed for loosening of this level and correction. A cage was then selected based on shaving and trials. Bleeding endplates were encountered and cartilage removed. Autograft, allograft were then placed anterior to the cage. The cage was then impacted into place under lateral imaging while protecting neural elements. Orthodox of lordosis and height achieved. Meticulous hemostasis then performed. Cage was backfilled with DBM and the area irrigated. We then proceeded to L3-4. At L3-4 again bilateral laminectomy, complete facetectomy and foraminotomy were performed. This level was also was very unstable. The elements were then protected, and disc space accessed. Sequential shaving performed until desired height and lordosis. Cage selected, and graft placed anterior to the cage within the disc space. Cage was then placed under lateral image, and had good height, lordosis and deformity correction. The wound was irrigated, and meticulous hemostasis performed once again. We then proceeded to L2-3. At L2-3 again bilateral laminectomy, complete facetectomy and foraminotomy were performed. The elements were then protected, and disc space accessed. Sequential shaving performed until desired height and lordosis. Cage selected, and graft placed anterior to the cage within the disc space. Cage was then placed under lateral image, and had good height, lordosis and deformity correction. The wound was irrigated, and meticulous hemostasis performed once again. we then proceeded to L1-2. At L1-2 again bilateral laminectomy, complete facetectomy and foraminotomy were performed. The elements were then protected, and disc space accessed. Sequential shaving performed until desired height and lordosis. Cage selected, and graft placed anterior to the cage within the disc space. Cage was then placed under lateral image, and had good height, lordosis and deformity correction. The wound was irrigated, and meticulous hemostasis performed once again. We then proceeded to maria elena placement. Irricept was placed in wound and then washed out. Attention was then drawn to maria elena placement. Rods were selected, measured, cut and bent to appropriate lordosis. They were then secured into L5 screws b/l. Sequential reduction then done into each screw for listhesis correction and deformity correction; IONM remained stable; and set screw placed. Set screws were then final tightened and lateral image showed good lordosis reduction with increase around 10 deg from starting. The wound was then irrigated with 3L Ancef irrigation, 3L gentamicin irrigation; irricept, betadine and 3L NSS. Surgicel was then placed on the dura, which was inspected and had no injury. Then, in the posterolateral gutter was placed, MagnatOs, Autograft and allograft. This was impacted into position and surgical placed over it. 2g Vanco powder was then placed deep in the wound. A deep, subfascial drain was placed and a superficial facial drain placed. We then proceeded with layered closure. #1 PDS placed in the deep fascia. [address] aced in the deep subq, 2-0 placed in the superficial subq and pearl placed in the skin. The wound edges approximated very well. The wound was then cleaned with ETOH and dressed with optifoam dressing, drain sponges and tegaderms. Drains sewed into position. IONM confirmed no changes. The patient was then transferred off the [facility] spine table to their hospital bed a-traumatically. Drains continued to hold suction. The patient was then extubated and transferred to the ICU in stable condition having tolerated the procedure with no complications.
[2024-04-17] MEDS: HYDROmorphone 0.5 MG/0.5 ML SYRINGE IVP PRN (14:53)
[2024-04-17] MEDS ORDERED: bisacodyL 10 MG SUPP RECTAL PRN (15:20)
[2024-04-17] MEDS ORDERED: MAGNESIUM HYDROXIDE 2,400 MG/30 ML CUP PO PRN (15:20)
[2024-04-17] MEDS ORDERED: NA PHOS,M-B/NA PHOS,DI-BA 133 ML ENEMA RECTAL PRN (15:20)
[2024-04-17] MEDS: CALCIUM CARBONATE 500 MG CHEWABLE PO SCH (17:16)
[2024-04-17] MEDS: polyethylene glycoL 3350 17 GM POWD.PACK PO SCH (17:16)
[2024-04-17] MEDS: CHOLECALCIFEROL 25 MCG (1000 IU) TABLET PO SCH (17:16)
[2024-04-17] MEDS: MULTIVITAMINS, THERA 1 EACH TAB PO SCH (17:19)
[2024-04-17] MEDS: FOLIC ACID 1 MG TAB PO SCH (17:19)
[2024-04-17] MEDS: LORATADINE 10 MG TAB PO SCH (17:19)
[2024-04-17] MEDS: SPIRONOLACTONE 25 MG TAB PO SCH (17:22)
[2024-04-17] MEDS: ENOXAPARIN 40 MG/0.4 ML SYRINGE SQ SCH (17:22)
[2024-04-17] MEDS: HYDROcodone/APAP 10-325MG 1 EACH TAB PO PRN (17:41)
--- NOTE | 2024-04-17 21:38 | P.ANPRN ---
Procedure Note - Anesthesia - Invasive Line Left Arterial Line Time Out Performed: Yes Date of Procedure: 04/17/24 Time of Procedure: 09:21 Location of Patient: PreOp Preparation: Sterile Prep, Sterile Dressing Arterial Line Location: Briachial Ultrasound Used: No Purpose - Visualization and Identification of Vasculature: No Image Stored and Saved: No Narrative: Invasive line placement per sterile protocol utilized.
[2024-04-18] MEDS: SENNOSIDES-DOCUSATE SODIUM 1 EACH TAB PO SCH (08:10)
--- NOTE | 2024-04-18 09:55 | CT ---
EXAMINATION TYPE: CT lumbar spine wo con CT DLP: 2331.6 mGycm, Automated exposure control for dose reduction was used. DATE OF EXAM: 04/18/2024 9:41 AM COMPARISON: 04/16/2024. CLINICAL INDICATION: Female, 78 years old with history of s/p lumbar fusion; PHH, s/p lumbar fusion TECHNIQUE: Multiple axial images were obtained from the midportion of T11 through the sacroiliac yolanda nts. Soft tissue and bone windows in coronal and sagittal planes were obtained and reviewed. 3-D ref ormats of the bones were created on a separate workstation and submitted for review. Contrast used: mL of , (None, if empty). Oral contrast used: (None, if empty). FINDINGS: Postsurgical changes to the lumbar spine with fixation hardware at L1-L5. Discectomy at L1-L2 through L4 L5. Hardware limits evaluation at these levels. Hardware appears intact. No evidence of fracture. Multilevel laminectomy changes. Postsurgical changes in the soft tissues with foci of gas present. Drainage catheter with tubing in t he surgical bed. Posterior back skin pearl are present. IMPRESSION: Postsurgical changes without evidence of immediate post operative complication. [facility], , 04/18/2024 9:53 AM
[2024-04-18 10:37] LABS: Basophils # (A) 0.01 X 10*3/uL (0.00-0.10); Basophils % (A) 0.1 %; Eosinophils # (A) 0 X 10*3/uL (0.04-0.35); Eosinophils % (A) 0 %; HCT 38.5 % (37.2-46.3); HGB 12.4 g/dL (12.0-15.0); Lymphocytes % (A) 4.2 %; MCHC 32.2 g/dL (32.0-37.0); MCV 99.2 FL (80.0-97.0); Mean Platelet Volume 9.3 FL (9.5-12.2); Monocytes # (A) 1.08 X 10*3/uL (0.20-1.00); Monocytes % (A) 7.6 %; NRBC Per 100 WBC 0 X 10*3/uL (0.00-0.01); Neutrophils % (A) 87.4 %; Platelet Count 251 X 10*3/uL (140-440); RBC 3.88 X 10*6/uL (4.10-5.20); RDW 13.2 % (11.5-14.5); WBC 14.19 X 10*3/uL (4.50-10.00)
[2024-04-18 10:38] LABS: BUN/Creat Ratio 23.14 Ratio (12.00-20.00); Blood Urea Nitrogen 16.2 mg/dL (9.0-27.0); Calcium 8.5 mg/dL (8.7-10.3); Carbon Dioxide 24.6 mmol/L (21.6-31.8); Chloride 101 mmol/L (96-109); Glucose 149 mg/dL (70-110); Potassium 4.7 mmol/L (3.5-5.5); Sodium 135 mmol/L (135-145)
--- NOTE | 2024-04-18 10:45 | P.PN ---
Subjective Progress Note Date: 04/18/24 Principal diagnosis: L1-L5 spondylosis with central canal and neuroforaminal stenosis. Grade 1 spondylolisthesis unstable L4-L5 and L3 to 4. Patient was seen at bedside this morning sitting up in chair with legs elevated. Patient mentions she was little bit nauseous at bedside this morning. She says she did just get up with therapy to the chair from the bed. Patient is hoping to work with therapy later today again. She says she is having a moderate amount of pain in the back at this time. Patient does note that there is resolution to the dropfoot on her left lower extremity. She does note improvement in numbness and tingling in the lower extremities as well since surgery yesterday. Patient denies any other significant issues at this time. Objective - Vital Signs Vital signs: Vital Signs Temp 98.6 F 04/18/24 07:34 Pulse 86 04/18/24 08:00 Resp 18 04/18/24 08:00 BP 109/69 04/18/24 07:34 Pulse Ox 97 04/18/24 07:34 FiO2 Intake & Output 04/17/24 04/18/24 04/18/24 18:59 06:59 18:59 Intake Total 2402 240 Output Total 1175 3600 Balance 1227 -3360 Weight 107.501 kg Intake: IV 2402 Oral 240 Output: Urine 525 3600 Estimated Blood Loss 650 Other: Voiding Method Indwelling Catheter Indwelling Catheter - Exam Dressings appear to be clean, dry, intact. Negative for any significant drainage. Assess dressings daily. Sensation appears to be improved in the bilateral lower extremities since surgery. Patient does have a little bit of residual numbness and tingling in both lower extremities diffusely. Patient does have full range of motion bilateral upper extremities on exam. There is similar range of motion in bilateral lower extremities secondary to referred pain and stiffness to the low back. Patient does have improvement in dorsi/plantarflexion of the left ankle as well as EHL/FHL on the left lower extremity. 4-/5 in all major motor groups in bilateral lower extremities. 4+/5 in all major motor groups in bilateral upper extremities. Radial pulse intact, 2+ bilaterally. DP pulse palpable bilaterally. Cap refill under 3 seconds in digits of upper extremities. Negative Homans bilaterally. Negative clonus bilaterally. Negative Babita bilaterally. - Labs CBC & Chem 7: 10/18/24 04:03 04/18/24 04:03 Assessment and Plan Assessment: 1. L1-L5 spondylosis with central canal and neuroforaminal stenosis. Grade 1 spondylolisthesis unstable L4-L5 and L3 to 4 -Postop day 1 status post L1-L5 posterolateral interbody fusion Plan: 1. L1-L5 spondylosis with central canal and neuroforaminal stenosis. Grade 1 spondylolisthesis unstable L4-L5 and L3 to 4 -surgery performed yesterday, , 04/17/2024L1-L5 posterior lateral interbody fusion. Patient stable at bedside this morning. Dressing present over lumbar spine. Appears to be clean, dry, intact. Assess dressing daily. Weightbearing as tolerated with walker and assistance. Pain medication as needed. GISELLE hose and SCDs. We will continue to follow patient during stay in hospital. Discharge pending. 2. Appreciate medical management 3. Pain management -[place]; gabapentin; Flexeril; Robaxin 4. DVT prophylaxis -Eliquis; SCDs, GISELLE hose 5. GI prophylaxis -senna; milk of magnesia; tums; MiraLAX 6. PT/OT -weightbearing as tolerated with walker and brace 7. Encourage incentive spirometer use 8. Discharge planning - pending Time with Patient: Less than 30
--- NOTE | 2024-04-18 15:53 | P.PN ---
Subjective Progress Note Date: 04/18/24 This is a pleasant 78-year-old female who presents for severe back pain with known history of lumbar disc herniation. Patient is scheduled to undergo L1-L5 decompression and stabilization today with Dr. Resendiz. Resumed all appropriate home medications. Is maintained on Eliquis chronically on an outp atient basis which is currently on hold at this time secondary to planned lumbar surgery and will recommend to be resumed as soon as possible after surgery when cleared by orthopedics. Labs today reveal a white blood cell count of 10.4, hemoglobin 15.5, sodium level of 135, potassium 5.0, BUN of 17, creatinine of 0.65. Urinalysis was within normal limits. 04/18/2024 Eval today she is postoperative day #1 L1-L5 decompression and stabilization. She is reporting significant pain while up ambulating however sitting in the chair she is comfortable at about a 4 out of 10. Indwelling Riggins catheter will be removed today and patient is encouraged to get up and ambulate. Patient has been resumed on Eliquis postoperatively. 95% oxygen saturation on 2 L of nasal cannula and this can be weaned off. Review of Systems Constitutional: Denied any fatigue denied any fever. Cardio vascular: denied any chest pain, palpitations Gastrointestinal: denied any nausea, vomiting, diarrhea Pulmonary: Denied any shortness of breath cough Neurologic denied any new focal deficits All inpatient medications were reviewed and appropriate changes in these medications as dictated in the interval history and assessment and plan PHYSICAL EXAMINATION: GENERAL: The patient is alert and oriented x3, not in any acute distress. Well developed, well nourished. HEENT: Pupils are round and equally reacting to light. EOMI. No scleral icterus. No conjunctival pallor. Normocephalic, atraumatic. No pharyngeal erythema. No thyromegaly. CARDIOVASCULAR: S1 and S2 present. No murmurs, rubs, or gallops. PULMONARY: Chest is clear to auscultation, no wheezing or crackles. ABDOMEN: Soft, nontender, nondistended, normoactive bowel sounds. No palpable organomegaly. MUSCULOSKELETAL: No joint swelling or deformity. EXTREMITIES: No cyanosis, clubbing, or pedal edema. NEUROLOGICAL: Gross neurological examination did not reveal any focal deficits. SKIN: No rashes. Assessment and plan Severe back pain with lumbar disc herniation scheduled to undergo L1-L5 decompression and stabilization today History of DVT PE anticoagulant with Eliquis which is currently on hold for surgical intervention of the back would recommend to resume as soon as possible postsurgery when cleared by primary Gastroesophageal reflux disease History hyperlipidemia History of thyroid disorder Prophylaxis DVT prophylaxis Full code Plan Continue all same home medications, liquids has been resumed postoperatively We will stop the Aldactone today as her blood pressure did drop into the high 90s systolic Courage incentive spirometer postsurgical monitor CBC BMP Thank you for this consultation we will continue to follow along closely this hospital stay. The impression and plan of care has been dictated by Kiana Michaels, Nurse Practitioner as directed. Dr. Cole MD I have performed a history and physical examination and medical decision making of this patient, discussed the same with the dictator, and agree with the dictators assessment and plan as written, documented as a scribe. Based on total visit time, I have performed more than 50% of this visit. Objective - Vital Signs Vital signs: Vital Signs Temp 98.6 F 04/18/24 07:34 Pulse 86 04/18/24 07:34 Resp 18 04/18/24 07:34 BP 109/69 04/18/24 07:34 Pulse Ox 97 04/18/24 07:34 FiO2 Intake & Output 04/17/24 04/18/24 04/18/24 18:59 06:59 18:59 Intake Total 2402 240 Output Total 1175 3600 Balance 1227 -3360 Weight 107.501 kg Intake: IV 2402 Oral 240 Output: Urine 525 3600 Estimated Blood Loss 650 Other: Voiding Method Indwelling Catheter - Labs CBC & Chem 7: 04/18/24 04:03 04/18/24 04:03 Assessment and Plan Time with Patient: Less than 30
[2024-04-18] MEDS: APIXABAN 5 MG TAB PO SCH (21:54)
--- NOTE | 2024-04-19 14:06 | P.PN ---
Subjective Progress Note Date: 04/19/24 This is a pleasant 78-year-old female who presents for severe back pain with known history of lumbar disc herniation. Patient is scheduled to undergo L1-L5 decompression and stabilization today with Dr. Resendiz. Resumed all appropriate home medications. Is maintained on Eliquis chronically on an outp atient basis which is currently on hold at this time secondary to planned lumbar surgery and will recommend to be resumed as soon as possible after surgery when cleared by orthopedics. Labs today reveal a white blood cell count of 10.4, hemoglobin 15.5, sodium level of 135, potassium 5.0, BUN of 17, creatinine of 0.65. Urinalysis was within normal limits. 04/18/2024 Eval today she is postoperative day #1 L1-L5 decompression and stabilization. She is reporting significant pain while up ambulating however sitting in the chair she is comfortable at about a 4 out of 10. Indwelling Riggins catheter will be removed today and patient is encouraged to get up and ambulate. Patient has been resumed on Eliquis postoperatively. 95% oxygen saturation on 2 L of nasal cannula and this can be weaned off. 07/20/2023 Patient is eval today resting in bed she is postoperative day #2 L1-L5 decompression and stabilization. She was having some worsening lumbar back pain with a saturated dressing yesterday overnight and the Hemovac had come dislodged on its own. She is currently waiting to be evaluated by orthopedics today. Following Riggins catheter has been removed she has been up to the bathroom although she is not wanting to drink much water because she states that it makes her pee. Review of Systems Constitutional: Denied any fatigue denied any fever. Cardio vascular: denied any chest pain, palpitations Gastrointestinal: denied any nausea, vomiting, diarrhea Pulmonary: Denied any shortness of breath cough Neurologic denied any new focal deficits All inpatient medications were reviewed and appropriate changes in these medications as dictated in the interval history and assessment and plan PHYSICAL EXAMINATION: GENERAL: The patient is alert and oriented x3, not in any acute distress. Well developed, well nourished. HEENT: Pupils are round and equally reacting to light. EOMI. No scleral icterus. No conjunctival pallor. Normocephalic, atraumatic. No pharyngeal erythema. No thyromegaly. CARDIOVASCULAR: S1 and S2 present. No murmurs, rubs, or gallops. PULMONARY: Chest is clear to auscultation, no wheezing or crackles. ABDOMEN: Soft, nontender, nondistended, normoactive bowel sounds. No palpable organomegaly. MUSCULOSKELETAL: No joint swelling or deformity. EXTREMITIES: No cyanosis, clubbing, or pedal edema. NEUROLOGICAL: Gross neurological examination did not reveal any focal deficits. SKIN: No rashes. Assessment and plan Severe back pain with lumbar disc herniation postoperative L1-L5 decompression and stabilization History of DVT PE has been resumed on eliquis Gastroesophageal reflux disease History hyperlipidemia History of thyroid disorder Prophylaxis DVT prophylaxis Full code Plan Continue all same home medications, eliquis has been resumed postoperatively We will stop the Aldactone today as her blood pressure did drop into the high 90s systolic. Continue off aldactone Continue IV fluids encourage oral intake. Courage incentive spirometer postsurgical monitor CBC BMP Thank you for this consultation we will continue to follow along closely this hospital stay. The impression and plan of care has been dictated by Kiana Michaels, Nurse Practitioner as directed. Dr. Cole MD I have performed a history and physical examination and medical decision making of this patient, discussed the same with the dictator, and agree with the di ctators assessment and plan as written, documented as a scribe. Based on total visit time, I have performed more than 50% of this visit. Objective - Vital Signs Vital signs: Vital Signs Temp 98.4 F 04/19/24 07:05 Pulse 81 04/19/24 07:05 Resp 18 04/19/24 07:05 BP 118/69 04/19/24 07:05 Pulse Ox 95 04/19/24 07:05 FiO2 Intake & Output 04/18/24 04/19/24 04/19/24 18:59 06:59 18:59 Intake Total 240 Output Total 3600 150 Balance -3360 -150 Intake: Oral 240 Output: Drainage 0 Posterior Back 0 Urine 3600 150 Other: Voiding Method Indwelling Catheter # Voids 1 1 - Labs CBC & Chem 7: 04/18/24 04:03 04/18/24 04:03 Labs: Abnormal Lab Results - Last 24 Hours (Table) 04/18/24 04/18/24 Range/Units 04:03 04:03 WBC 14.19 H (4.50-10.00) X 10*3/uL RBC 3.88 L (4.10-5.20) X 10*6/uL MCV 99.2 H (80.0-97.0) FL MPV 9.3 L (9.5-12.2) FL Immature Gran # 0.10 H (0.00-0.04) X 10*3/uL Neutrophils # 12.40 H (1.80-7.70) X 10*3/uL Lymphocytes # 0.60 L (0.90-5.00) X 10*3/uL Monocytes # 1.08 H (0.20-1.00) X 10*3/uL Eosinophils # 0 L (0.04-0.35) X 10*3/uL BUN/Creatinine Ratio 23.14 H (12.00-20.00) Ratio Glucose 149 H (70-110) mg/dL Calcium 8.5 L (8.7-10.3) mg/dL Assessment and Plan Time with Patient: Less than 30
--- NOTE | 2024-04-19 15:29 | P.PN ---
Subjective Progress Note Date: 04/19/24 Principal diagnosis: Status post L1-L5 posterior lateral decompression and fusion Patient evaluated today at bedside, she is sleeping upon arrival, she was easily awoken. She does states she has some pain in the low back. She has been urinating with no issues since the catheter has been removed. She is breathing comfortably with no obvious signs of chest pain or shortness of breath. She has no bowel or bladder incontinence at this time. Objective - Vital Signs Vital signs: Vital Signs Temp 98.4 F 04/19/24 14:50 Pulse 93 04/19/24 14:50 Resp 17 04/19/24 14:50 BP 100/62 04/19/24 14:50 Pulse Ox 94 L 04/19/24 14:50 FiO2 Intake & Output 04/18/24 04/19/24 04/19/24 18:59 06:59 18:59 Intake Total 240 200 Output Total 3600 150 Balance -3360 -150 200 Intake: Oral 240 200 Output: Drainage 0 Posterior Back 0 Urine 3600 150 Other: Voiding Method Indwelling Catheter Bedside Commode Bedpan # Voids 1 1 1 - Exam Gen: AOx3, NAD VSS stable at this time Integument: Postop dressing is in good position condition, pearl are all in good position and condition Palpation: Mild tenderness palpation of the lower lumbar spine ROM: Full range of motion in all major muscle groups, no focal deficits appreciated Sensory Exam: Senory exam to light touch is intact C5-T1 Senosry exam to light touch is intact L2-S1 Motor: 5/5 strength appreciated the bilateral upper extremities with shoulder elevation, shoulder abduction, elbow extension, elbow flexion, wrist extension, wrist flexion, b2b sales professional 4-/5 strength appreciate the bilateral lower extremities with hip flexion, knee extension, knee flexion, plantarflexion, dorsiflexion, EHL, FHL Reflexes: 2/4 in all UE and LE Negative Babita's bilaterally Babinski bilaterally Of clonus bilaterally - Labs CBC & Chem 7: 04/18/24 04:03 04/18/24 04:03 Assessment and Plan Assessment: Postoperative day #2 status post L1-L5 posterior lateral decompression and fusion Plan: Pain control, continue with current medications DVT prophylaxis, okay to restart Eliquis Wound care, continue monitor surgical dressing Weight-bear as tolerated with walker LSO brace when up and ambulating longer distances Okay to DC central line Other medical specialty recommendations appreciated Will continue to follow during hospital stay Time with Patient: Less than 30
--- NOTE | 2024-04-20 09:18 | P.PN ---
Subjective Progress Note Date: 04/20/24 Principal diagnosis: Status post L1-L5 posterior lateral decompression and fusion Patient evaluated today at bedside, resting comfortably. She does states she has some pain in the low back. She has been urinating with no issues since the catheter has been removed. She is breathing comfortably with no obvious signs of chest pain or shortness of breath. She has no bowel or bladder incontinence at this time. Objective - Vital Signs Vital signs: Vital Signs Temp 97.8 F 04/20/24 07:20 Pulse 89 04/20/24 07:20 Resp 17 04/20/24 07:20 BP 119/78 04/20/24 07:20 Pulse Ox 95 04/20/24 07:20 FiO2 Intake & Output 04/19/24 04/20/24 04/20/24 18:59 06:59 18:59 Intake Total 200 Balance 200 Intake: Oral 200 Other: Voiding Method Bedside Commode Bedside Commode Bedpan # Voids 1 - Exam Gen: AOx3, NAD VSS stable at this time Integument: Postop dressing was changed today at bedside, pearl are all in good position and condition Palpation: Mild tenderness palpation of the lower lumbar spine ROM: Full range of motion in all major muscle groups, no focal deficits appreciated Sensory Exam: Senory exam to light touch is intact C5-T1 Senosry exam to light touch is intact L2-S1 Motor: 5/5 strength appreciated the bilateral upper extremities with shoulder elevation, shoulder abduction, elbow extension, elbow flexion, wrist extension, wrist flexion, medical staff manager 4-/5 strength appreciate the bilateral lower extremities with hip flexion, knee extension, knee flexion, plantarflexion, dorsiflexion, EHL, FHL Reflexes: 2/4 in all UE and LE Negative Babita's bilaterally Negative Babinski bilaterally Negative clonus bilaterally - Labs CBC & Chem 7: 04/18/24 04:03 04/18/24 04:03 Assessment and Plan Assessment: Postoperative day #3 status post L1-L5 posterior lateral decompression and fusion Plan: Pain control, continue with current medications DVT prophylaxis, okay to restart Eliquis Wound care, continue monitor surgical dressing Weight-bear as tolerated with walker LSO brace when up and ambulating longer distances Other medical specialty recommendations appreciated Hopeful discharge to subacute rehab in the next 24-48 hours Time with Patient: Less than 30
--- NOTE | 2024-04-20 13:51 | XR ---
Right hip. HISTORY: Pain. COMPARISON: None. TECHNIQUE: 2 views right hip were obtained. Signs: There is no fracture, dislocation or focal intraosseous abnormality. The joint spaces well-preserved. IMPRESSION: No significant abnormality seen. [facility], Workstation: [facility], 04/20/2024 1:48 PM
--- NOTE | 2024-04-20 16:16 | US ---
EXAMINATION TYPE: US venous doppler duplex LE RT DATE OF EXAM: 04/20/2024 3:45 PM Exam done portable COMPARISON: US 2022 CLINICAL INDICATION: Female, 79 years old with history of right hip pain, leg swelling; TECHNIQUE: The lower extremity deep venous system is examined utilizing real time linear array sonog chung with graded compression, color doppler sonography, and spectral doppler. SIDE PERFORMED: Right FINDINGS: VESSELS IMAGED: Common Femoral Vein Deep Femoral Vein Greater Saphenous Vein * Femoral Vein Popliteal Vein Small Saphenous Vein * Proximal Calf Veins (* superficial vessels) Right Leg: Appears negative for DVT Grayscale, color doppler, spectral doppler imaging performed of the deep veins of the lower extremiti es. IMPRESSION: 1. No evidence of deep vein thrombosis of the right lower extremity. [facility], , 04/20/2024 4:14 PM
--- NOTE | 2024-04-21 04:50 | P.PN ---
Subjective Progress Note Date: 04/20/24 This is a pleasant 78-year-old female who presents for severe back pain with known history of lumbar disc herniation. Patient is scheduled to undergo L1-L5 decompression and stabilization today with Dr. Resendiz. Resumed all appropriate home medications. Is maintained on Eliquis chronically on an o utpatient basis which is currently on hold at this time secondary to planned lumbar surgery and will recommend to be resumed as soon as possible after surgery when cleared by orthopedics. Labs today reveal a white blood cell count of 10.4, hemoglobin 15.5, sodium level of 135, potassium 5.0, BUN of 17, creatinine of 0.65. Urinalysis was within normal limits. 04/18/2024 Eval today she is postoperative day #1 L1-L5 decompression and stabilization. She is reporting significant pain while up ambulating however sitting in the chair she is comfortable at about a 4 out of 10. Indwelling Riggins catheter will be removed today and patient is encouraged to get up and ambulate. Patient has been resumed on Eliquis postoperatively. 95% oxygen saturation on 2 L of nasal cannula and this can be weaned off. 07/20/2023 Patient is eval today resting in bed she is postoperative day #2 L1-L5 decompre ssion and stabilization. She was having some worsening lumbar back pain with a saturated dressing yesterday overnight and the Hemovac had come dislodged on its own. She is currently waiting to be evaluated by orthopedics today. Following Riggins catheter has been removed she has been up to the bathroom although she is not wanting to drink much water because she states that it makes her pee. 04/20/2024 Patient is seen and evaluated in follow-up this morning with orthopedics following status post L1-L5 decompression. Patient reports she was able to get up today and reported some right hip pain and swelling. Will obtain a Doppler along with hip x-ray as patient is reporting severe pain in that area. Patient is continued on Eliquis and has been resumed. Patient is afebrile although con tinues on a few liters of oxygen and reports she does not wear this at home. Encouraged sitting up more frequently and using incentive spirometer at least 10 times an hour while awake. Review of Systems Constitutional: Denied any fatigue denied any fever. Cardio vascular: denied any chest pain, palpitations Gastrointestinal: denied any nausea, vomiting, diarrhea, reports passing gas and urinating Pulmonary: Denied any shortness of breath cough Neurologic denied any new focal deficits, reports to feeling weak with right hip pain All inpatient medications were reviewed and appropriate changes in these medications as dictated in the interval history and assessment and plan PHYSICAL EXAMINATION: GENERAL: The patient is alert and oriented x3, not in any acute distress. Well developed, well nourished. Elderly appearing, morbidly obese HEENT: Pupils are round and equally reacting to light. EOMI. No scleral icterus. No conjunctival pallor. Normocephalic, atraumatic. No pharyngeal erythema. No thyromegaly. CARDIOVASCULAR: S1 and S2 present. No murmurs, rubs, or gallops. PULMONARY: Diminished breath sounds bilaterally otherwise chest is clear to auscultation, no wheezing or crackles. ABDOMEN: Soft, obese, nontender, nondistended, normoactive bowel sounds. No palpable organomegaly. MUSCULOSKELETAL: No joint swelling or deformity. EXTREMITIES: No cyanosis, clubbing, or pedal edema. Right hip pain and tenderness in the thigh region on palpation NEUROLOGICAL: Gross neurological examination did not reveal any focal deficits. Diffusely weak SKIN: No rashes. Assessment: Severe back pain with lumbar disc herniation postoperative L1-L5 decompression and stabilization History of DVT PE has been resumed on eliquis Gastroesophageal reflux disease Right hip pain, ruled out fracture on imaging History of hyperlipidemia History of thyroid disorder Morbid obesity with a BMI of 43.3 GI prophylaxis DVT prophylaxis Full code Plan: Continue all same home medications, eliquis has been resumed postoperatively We will stop the Aldactone today as her blood pressure did drop into the high 90s systolic. Continue off aldactone Continue IV fluids encourage oral intake. Decrease the rate slightly Patient was reporting right hip pain and tenderness with swelling and Doppler wa s obtained and negative for DVT, right hip x-ray negative for any acute fractures. Continue to encourage incentive spirometer use at least 10 times every hour while awake monitor CBC BMP, labs ordered for a.m. Thank you for this consultation. We will continue to follow along closely this hospital stay. Patient reports plan is for ECF for continued strength and mobility. Case management/social work to follow on Sunday. The impression and plan of care has been dictated by Mira Brunner, Nurse Practitioner as directed. Dr. Cole MD I have performed a history and physical examination and medical decision making of this patient, discussed the same with the dictator, and agree with the dictators assessment and plan as written, documented as a scribe. Based on total visit time, I have performed more than 50% of this visit. Objective - Vital Signs Vital signs: Vital Signs Temp 97.8 F 04/20/24 07:20 Pulse 89 04/20/24 07:20 Resp 17 04/20/24 07:20 BP 119/78 04/20/24 07:20 Pulse Ox 95 04/20/24 07:20 FiO2 Intake & Output 04/19/24 04/20/24 04/20/24 18:59 06:59 18:59 Intake Total 200 Balance 200 Intake: Oral 200 Other: Voiding Method Bedside Commode Bedside Commode Bedpan # Voids 1 - Labs CBC & Chem 7: 04/18/24 04:03 04/18/24 04:03
[2024-04-21 08:44] LABS: ALT 11 U/L (8-44); AST 29 U/L (13-35); Albumin 3.3 g/dL (3.8-4.9); Albumin/Globulin Ratio 2.06 Ratio (1.60-3.17); Alkaline Phosphatase 56 U/L (41-126); Blood Urea Nitrogen 15.7 mg/dL (9.0-27.0); Calcium 8.6 mg/dL (8.7-10.3); Carbon Dioxide 22.8 mmol/L (21.6-31.8); Chloride 100 mmol/L (96-109); Globulin 1.6 g/dL (1.6-3.3); Glucose 150 mg/dL (70-110); Potassium 4.3 mmol/L (3.5-5.5); Sodium 136 mmol/L (135-145); Total Protein 4.9 g/dL (6.2-8.2)
[2024-04-21 09:01] LABS: Basophils # (A) 0.01 X 10*3/uL (0.00-0.10); Basophils % (A) 0.1 %; Eosinophils # (A) 0.03 X 10*3/uL (0.04-0.35); Eosinophils % (A) 0.3 %; HCT 34.9 % (37.2-46.3); HGB 11.4 g/dL (12.0-15.0); Lymphocytes # (A) 0.78 X 10*3/uL (0.90-5.00); Lymphocytes % (A) 8.2 %; MCH 31.9 pg (27.0-32.0); MCHC 32.7 g/dL (32.0-37.0); MCV 97.8 FL (80.0-97.0); Mean Platelet Volume 9.7 FL (9.5-12.2); Monocytes # (A) 0.77 X 10*3/uL (0.20-1.00); Monocytes % (A) 8.1 %; NRBC Per 100 WBC 0 X 10*3/uL (0.00-0.01); Neutrophils % (A) 82.6 %; Platelet Count 218 X 10*3/uL (140-440); RBC 3.57 X 10*6/uL (4.10-5.20); RDW 13.3 % (11.5-14.5); WBC 9.56 X 10*3/uL (4.50-10.00)
--- NOTE | 2024-04-21 11:13 | P.PN ---
Subjective Progress Note Date: 04/21/24 Principal diagnosis: Status post L1-L5 posterior lateral decompression and fusion Patient evaluated today at bedside, resting comfortably. Patient has continued to have some increase in pain to the right lateral thigh that does trend down into the anterior thigh. Internal medicine did order Doppler and x-rays. No acute DVT was noted, she has osteoarthritic findings to the right hip. She is breathing comfortably with no obvious signs of chest pain or shortness of breath. She has no bowel or bladder incontinence at this time. Objective - Vital Signs Vital signs: Vital Signs Temp 98.2 F 04/21/24 07:05 Pulse 79 04/21/24 07:05 Resp 17 04/21/24 07:05 BP 121/86 04/21/24 07:05 Pulse Ox 95 04/21/24 07:05 FiO2 Intake & Output 04/20/24 04/21/24 04/21/24 18:59 06:59 18:59 Intake Total 240 540 Balance 240 540 Intake: Oral 240 540 Other: Voiding Method Bedside Commode # Voids 2 1 - Exam Gen: AOx3, NAD VSS stable at this time Integument: Postop dressing is clean and intact Palpation: Mild tenderness palpation of the lower lumbar spine ROM: Full range of motion in all major muscle groups, no focal deficits appreciated Sensory Exam: Senory exam to light touch is intact C5-T1 Senosry exam to light touch is intact L2-S1 Motor: 5/5 strength appreciated the bilateral upper extremities with shoulder elevation, shoulder abduction, elbow extension, elbow flexion, wrist extension, wrist flexion, telemarketing supervisor 4-/5 strength appreciate the bilateral lower extremities with hip flexion, knee extension, knee flexion, plantarflexion, dorsiflexion, EHL, FHL Reflexes: 2/4 in all UE and LE Negative Babita's bilaterally Negative Babinski bilaterally Negative clonus bilaterally - Labs CBC & Chem 7: 04/21/24 06:11 04/21/24 06:11 Labs: Abnormal Lab Results - Last 24 Hours (Table) 04/21/24 04/21/24 Range/Units 06:11 06:11 RBC 3.57 L (4.10-5.20) X 10*6/uL Hgb 11.4 L (12.0-15.0) g/dL Hct 34.9 L (37.2-46.3) % MCV 97.8 H (80.0-97.0) FL Immature Gran # 0.07 H (0.00-0.04) X 10*3/uL Neutrophils # 7.90 H (1.80-7.70) X 10*3/uL Lymphocytes # 0.78 L (0.90-5.00) X 10*3/uL Eosinophils # 0.03 L (0.04-0.35) X 10*3/uL Anion Gap 13.20 H (4.00-12.00) mmol/L Creatinine 0.5 L (0.6-1.5) mg/dL BUN/Creatinine Ratio 31.40 H (12.00-20.00) Ratio Glucose 150 H (70-110) mg/dL Calcium 8.6 L (8.7-10.3) mg/dL Total Protein 4.9 L (6.2-8.2) g/dL Albumin 3.3 L (3.8-4.9) g/dL Assessment and Plan Assessment: Postoperative day #4 status post L1-L5 posterior lateral decompression and fusion Plan: Pain control, continue with current medications DVT prophylaxis, okay to restart Eliquis Wound care, continue monitor surgical dressing Weight-bear as tolerated with walker LSO brace has been ordered, case management will help with that today. Brace cannot be worn for shorter distances walking, recommend for ambulating in the halls and longer distances Other medical specialty recommendations appreciated Discharge planning: Discussed with case management obtaining the prior auth for rehab placement, hopeful discharge in the next 24-48 hours Time with Patient: Less than 30
[2024-04-21] MEDS: LIDOCAINE 4% PATCH TOPICAL PRN (12:16)
--- NOTE | 2024-04-21 13:58 | P.PN ---
Subjective Progress Note Date: 04/21/24 This is a pleasant 78-year-old female who presents for severe back pain with known history of lumbar disc herniation. Patient is scheduled to undergo L1-L5 decompression and stabilization today with Dr. Resendiz. Resumed all appropriate home medications. Is maintained on Eliquis chronically on an o utpatient basis which is currently on hold at this time secondary to planned lumbar surgery and will recommend to be resumed as soon as possible after surgery when cleared by orthopedics. Labs today reveal a white blood cell count of 10.4, hemoglobin 15.5, sodium level of 135, potassium 5.0, BUN of 17, creatinine of 0.65. Urinalysis was within normal limits. 04/18/2024 Eval today she is postoperative day #1 L1-L5 decompression and stabilization. She is reporting significant pain while up ambulating however sitting in the chair she is comfortable at about a 4 out of 10. Indwelling Riggins catheter will be removed today and patient is encouraged to get up and ambulate. Patient has been resumed on Eliquis postoperatively. 95% oxygen saturation on 2 L of nasal cannula and this can be weaned off. 07/20/2023 Patient is eval today resting in bed she is postoperative day #2 L1-L5 decompre ssion and stabilization. She was having some worsening lumbar back pain with a saturated dressing yesterday overnight and the Hemovac had come dislodged on its own. She is currently waiting to be evaluated by orthopedics today. Following Riggins catheter has been removed she has been up to the bathroom although she is not wanting to drink much water because she states that it makes her pee. 04/20/2024 Patient is seen and evaluated in follow-up this morning with orthopedics following status post L1-L5 decompression. Patient reports she was able to get up today and reported some right hip pain and swelling. Will obtain a Doppler along with hip x-ray as patient is reporting severe pain in that area. Patient is continued on Eliquis and has been resumed. Patient is afebrile although con tinues on a few liters of oxygen and reports she does not wear this at home. Encouraged sitting up more frequently and using incentive spirometer at least 10 times an hour while awake. 04/21/2024 Patient seen and evaluated in follow-up this morning with no acute overnight issues noted. Patient continues to report right hip pain and a Doppler along with x-ray was obtained and negative for DVT. Patient is sitting up in the chair and awaiting an LSO brace to be delivered. Plan is for patient to go to [facility] and currently awaiting insurance authorization. Patient is afebrile with no reports of chest pain or shortness of breath. Patient reports is using incentive spirometer and will continue to encourage at least 10 times every hour while awake. Patient reports is voiding with no difficulties and is passing gas but has not had a bowel movement yet. Continue bowel regimen at this time. Review of Systems Constitutional: Denied any fatigue denied any fever. Cardio vascular: denied any chest pain, palpitations Gastrointestinal: denied any nausea, vomiting, diarrhea, reports passing gas and urinating, no BM as of yet Pulmonary: Denied any shortness of breath cough Neurologic denied any new focal deficits, reports to feeling weak with right hip pain All inpatient medications were reviewed and appropriate changes in these medications as dictated in the interval history and assessment and plan PHYSICAL EXAMINATION: GENERAL: The patient is alert and oriented x3, not in any acute distress. Well developed, well nourished. Elderly appearing, morbidly obese HEENT: Pupils are round and equally reacting to light. EOMI. No scleral icterus. No conjunctival pallor. Normocephalic, atraumatic. No pharyngeal erythema. No thyromegaly. CARDIOVASCULAR: S1 and S2 present. No murmurs, rubs, or gallops. PULMONARY: Diminished breath sounds bilaterally otherwise chest is clear to auscultation, no wheezing or crackles. ABDOMEN: Soft, obese, nontender, nondistended, normoactive bowel sounds. No palpable organomegaly. MUSCULOSKELETAL: No joint swelling or deformity. EXTREMITIES: No cyanosis, clubbing, or pedal edema. Right hip pain and tenderness in the thigh region on palpation NEUROLOGICAL: Gross neurological examination did not reveal any focal deficits. Diffusely weak SKIN: No rashes. Assessment: Severe back pain with lumbar disc herniation postoperative L1-L5 decompression and stabilization History of DVT PE has been resumed on eliquis Gastroesophageal reflux disease Right hip pain, ruled out fracture on imaging History of hyperlipidemia History of thyroid disorder Morbid obesity with a BMI of 43.3 GI prophylaxis DVT prophylaxis Full code Plan: Continue all same home medications, eliquis has been resumed postoperatively We will stop the Aldactone today as her blood pressure did drop into the high 90s systolic. Continue off aldactone Continue IV fluids encourage oral intake. Decrease the rate slightly Patient was reporting right hip pain and tenderness with swelling and Doppler was obtained and negative for DVT, right hip x-ray negative for any acute fractures. Continue to encourage incentive spirometer use at least 10 times every hour whi le awake monitor CBC BMP, labs ordered for a.m. replace electrolytes per protocol Patient will be going to [facility] and currently awaiting insurance authorization with case management following. Patient is medically stable once cleared from orthopedics. Thank you for this consultation. We will continue to follow along closely this hospital stay. The impression and plan of care has been dictated by Mira Brunner, Nurse Practitioner as directed. Dr. Cole MD I have performed a history and physical examination and medical decision making of this patient, discussed the same with the dictator, and agree with the dictators assessment and plan as written, documented as a scribe. Based on total visit time, I have performed more than 50% of this visit. Creatinine better Objective - Vital Signs Vital signs: Vital Signs Temp 98.2 F 04/21/24 07:05 Pulse 79 04/21/24 07:05 Resp 17 04/21/24 07:05 BP 121/86 04/21/24 07:05 Pulse Ox 95 04/21/24 07:05 FiO2 Intake & Output 04/20/24 04/21/24 04/21/24 18:59 06:59 18:59 Intake Total 240 540 Balance 240 540 Intake: Oral 240 540 Other: Voiding Method Bedside Commode # Voids 2 1 - Labs CBC & Chem 7: 04/21/24 06:11 04/21/24 06:11 Labs: Abnormal Lab Results - Last 24 Hours (Table) 04/21/24 04/21/24 Range/Units 06:11 06:11 RBC 3.57 L (4.10-5.20) X 10*6/uL Hgb 11.4 L (12.0-15.0) g/dL Hct 34.9 L (37.2-46.3) % MCV 97.8 H (80.0-97.0) FL Immature Gran # 0.07 H (0.00-0.04) X 10*3/uL Neutrophils # 7.90 H (1.80-7.70) X 10*3/uL Lymphocytes # 0.78 L (0.90-5.00) X 10*3/uL Eosinophils # 0.03 L (0.04-0.35) X 10*3/uL Anion Gap 13.20 H (4.00-12.00) mmol/L Creatinine 0.5 L (0.6-1.5) mg/dL BUN/Creatinine Ratio 31.40 H (12.00-20.00) Ratio Glucose 150 H (70-110) mg/dL Calcium 8.6 L (8.7-10.3) mg/dL Total Protein 4.9 L (6.2-8.2) g/dL Albumin 3.3 L (3.8-4.9) g/dL
--- NOTE | 2024-04-22 12:39 | P.PN ---
Subjective Progress Note Date: 04/22/24 Principal diagnosis: Acute progressive low back pain Bilateral lower extremity weakness Patient seen and examined this morning. She is resting comfortably in bed. Patient does report that her pain is managed on current regimen. Surgical incision to the lumbar spine is well-approximated with pearl intact. New dressing has been applied. Patient reports she has been ambulatory with walker and tolerating activity well. Discussed with patient that she will likely be discharged later today to subacute rehab. Patient verbalizes understanding. Objective - Vital Signs Vital signs: Vital Signs Temp 97.5 F L 04/22/24 07:23 Pulse 87 04/22/24 07:23 Resp 17 04/22/24 07:23 BP 120/78 04/22/24 07:23 Pulse Ox 97 04/21/24 23:51 FiO2 Intake & Output 04/21/24 04/22/24 04/22/24 18:59 06:59 18:59 Intake Total 120 1620 Balance 120 1620 Intake: Oral 120 1620 Other: Voiding Method Bedside Commode # Voids 2 - Exam Physical Examination General: The patient is awake and alert, in no acute distress Skin: Skin is warm and dry with no obvious rashes or lesions. Surgical incision to the lumbar spine, edges are well-approximated with pearl intact. New dressing applied. Eye: Pupils are equal, round and reactive to light, extra-ocular movements are intact; there is normal conjunctiva bilaterally. Neck: The neck is supple, there is no tenderness and ROM intact. Cardiovascular: There is a regular rate and rhythm. No murmur, rub or gallop is appreciated. Respiratory: Respirations are non-labored, breath sounds are equal. Gastrointestinal: Soft, non-distended, non-tender abdomen. Back: There is no tenderness to palpation in the midline, paralumbar, para thoracic or buttocks region. There is no obvious deformity. Musculoskeletal: ROM limited secondary to pain and stiffness from surgical procedure. Right: Shoulder abduction 5/5, elbow flexors 5/5, wrist dorsiflexors 5/5. finger abductor 5/5, seismograph helper 5/5, hip flexor 4/5, knee flexor 4/5, ankle dorsiflexor 4/5, ankle plantarflexion 4/5 and extensor hallucis 4/5. Left: Shoulder abduction 5/5, elbow flexors 5/5, wrist dorsiflexors 5/5. finger abductor 5/5, seismograph helper 5/5, hip flexor 4/5, knee flexor 4/5, ankle dorsiflexor 4/5, ankle plantarflexion 4/5 and extensor hallucis 4/5. Neurological: CN 2-12 intact. There are no obvious motor or sensory deficits. Movement and coordination equal and intact. Sensory exam to light touch intact C5-T1 and intact from L2-S1. Reflexes 2/4 in bilateral upper and lower extremities. Negative Hoffmans, babinski, and clonus signs. Psychiatric: Cooperative, appropriate mood & affect, normal judgment. - Labs CBC & Chem 7: 04/21/24 06:11 04/21/24 06:11 Labs: Abnormal Lab Results - Last 24 Hours (Table) 04/21/24 04/21/24 Range/Units 06:11 06:11 RBC 3.57 L (4.10-5.20) X 10*6/uL Hgb 11.4 L (12.0-15.0) g/dL Hct 34.9 L (37.2-46.3) % MCV 97.8 H (80.0-97.0) FL Immature Gran # 0.07 H (0.00-0.04) X 10*3/uL Neutrophils # 7.90 H (1.80-7.70) X 10*3/uL Lymphocytes # 0.78 L (0.90-5.00) X 10*3/uL Eosinophils # 0.03 L (0.04-0.35) X 10*3/uL Anion Gap 13.20 H (4.00-12.00) mmol/L Creatinine 0.5 L (0.6-1.5) mg/dL BUN/Creatinine Ratio 31.40 H (12.00-20.00) Ratio Glucose 150 H (70-110) mg/dL Calcium 8.6 L (8.7-10.3) mg/dL Total Protein 4.9 L (6.2-8.2) g/dL Albumin 3.3 L (3.8-4.9) g/dL Assessment and Plan Assessment: Day 5: L1-L5 posterolateral interbody fusion Plan: -Appreciate product safety consultant and team management. -Activity: Ambulate QID, OOB all meals, up and about, limit lifting bending twisting to less than 5 lbs. Use walker or cane if needed for stability. -Daily PT/OT, increase ambulation strength and balance. -Brace when up and about, not needed in bed or chair -Pain control: Adequate at this time -Meds: reviewed -GI ppx: senna, Miralax -DVT PPX: Eliquis -Hygiene: Shower today. Maintain dressing clean and dry. Meticulous cleaning after BMs away from the incision site -Encourage IS 10x/hr -Dispo: Discharge to subacute rehab when insurance Auth is obtained. *I reviewed and discussed this case with my attending Dr. Resendiz, whom has reviewed this chart and films and is in agreement with assessment and plan of care as outlined above. I have personally seen and examined the patient, performed the documentation and the assessment and plan as written. Number of minutes spent on the visit: [ ].
--- NOTE | 2024-04-22 12:48 | P.DS ---
Providers Date of admission: 04/21/24 13:03 Expected date of discharge: 04/22/24 Attending physician: Ryan Resendiz DO Consults: 04/16/24 13:11 Consult Physician Routine Consulting Provider: Caden Britton Reason/Comments: medical management Do you want consulting provider notified?: Yes [facility] Course: hospital Course: The patient was evaluated preoperatively and found to have the diagnosis of Lumbar spondylosis with stenosis, acute progressive low back pain, and bilateral lower extremity weakness. They underwent appropriate preoperative care and were willing to undergo the intended procedure. They underwent a successful L1-L5 posteriolateral interbody fusion were recovered appropriately and sent to the floor. While on the floor they worked with physical therapy, occupational therapy and nursing to enhance their recovery experience. Their pain was well controlled through their stay and they were started on appropriate medications, DVT ppx modalities, activity and dietary needs. Daily labs were monitored closely, and transfusions were only used when necessary. Medicine as well as other consulting services have made their input and have helped with our team approach and multidisciplinary care. PT milestones have been met and passed and they have made the recommendation of subacute rehab for this patient and treating providers agree with this care path. The patient will be discharged home with appropriate medications, instructions and follow-up information and in stable condition. Patient Condition at Discharge: Stable Plan - Discharge Summary New Discharge Prescriptions: New metroNIDAZOLE [Flagyl] 500 mg PO BID #10 tab Gabapentin 300 mg PO TID #60 cap HYDROcodone/APAP 10-325MG [[place] 10-325] 1 tab PO Q4HR PRN #40 tab PRN Reason: Pain Magnesium Hydroxide [Milk of Magnesia] 2,400 mg PO DAILY PRN ml PRN Reason: Constipation Cyclobenzaprine [Flexeril] 10 mg PO TID PRN #40 tab PRN Reason: Muscle Spasm bisacodyL [Dulcolax] 10 mg RECTAL DAILY PRN suppositor PRN Reason: Constipation Na Phos,M-B/Na Phos,Di-Ba [Fleet Adult] 133 ml RECTAL DAILY PRN each PRN Reason: Constipation Sennosides-Docusate Sodium [Senokot-S] 2 each PO DAILY tab Continue Simvastatin [Zocor] 20 mg PO HS Montelukast [Singulair] 10 mg PO HS Multivitamins, Thera [Multivitamin (formulary)] 1 tab PO DAILY@1200 Cetirizine HCl [Zyrtec] 10 mg PO DAILY@1200 Calcium Carbonate [Calcium] 600 mg PO DAILY@1200 cycloSPORINE 0.05% OPHTH SOLN [Restasis] 1 applicator BOTH EYES Q12H Liothyronine Sodium [Cytomel] 5 mcg PO BID Famotidine [Pepcid] 20 mg PO BID #60 tablet Lidocaine 5% Patch [Lidoderm 5% Patch] 1 patch TOPICAL DAILY PRN 7 Days #7 patch PRN Reason: Pain Sennosides [Senokot] 34.4 mg PO HS Ondansetron [Zofran] 4 mg PO TID PRN PRN Reason: Nausea Levothyroxine Sodium [Synthroid] 75 mcg PO DAILY Apixaban [Eliquis] 5 mg PO BID guaiFENesin [Mucinex] 600 mg PO BID Cholecalciferol [Vitamin D3 (25 Mcg = 1000 Iu)] 25 mcg PO DAILY@1200 Cyclobenzaprine [Flexeril] 10 mg PO TID PRN #15 tab PRN Reason: Muscle Spasm polyethylene glycoL 3350 [Miralax] 17 gm PO DAILY Folic Acid 0.4 mg PO DAILY@1200 Triamcinolone 0.1% Cream [Kenalog 0.1% Cream] 1 applic TOPICAL BID PRN PRN Reason: Itching Spironolactone [Aldactone] 100 mg PO DAILY methocarbamoL [Robaxin-750] 1,500 mg PO TID PRN #30 tab PRN Reason: Pain Gabapentin 300 mg PO TID predniSONE [Deltasone] 20 mg PO BID Zolpidem [Ambien] 10 mg PO HS #2 tab Discharge Medication List Montelukast [Singulair] 10 mg PO HS 12/05/14 [History] Multivitamins, Thera [Multivitamin (formulary)] 1 tab PO DAILY@1200 12/05/14 [History] Simvastatin [Zocor] 20 mg PO HS 12/05/14 [History] Calcium Carbonate [Calcium] 600 mg PO DAILY@119908/18/22 [History] Cetirizine HCl [Zyrtec] 10 mg PO DAILY@119908/18/22 [History] Cholecalciferol [Vitamin D3 (25 Mcg = 1000 Iu)] 25 mcg PO DAILY@119908/18/22 [History] Liothyronine Sodium [Cytomel] 5 mcg PO BID 08/18/22 [History] cycloSPORINE 0.05% OPHTH SOLN [Restasis] 1 applicator BOTH EYES Q12H 08/18/22 [History] guaiFENesin [Mucinex] 600 mg PO BID 08/18/22 [History] Famotidine [Pepcid] 20 mg PO BID #60 tablet 08/21/22 [Rx] Cyclobenzaprine [Flexeril] 10 mg PO TID PRN #15 tab 04/08/24 [Rx] Folic Acid 0.4 mg PO DAILY@1200 04/08/24 [History] Lidocaine 5% Patch [Lidoderm 5% Patch] 1 patch TOPICAL DAILY PRN 7 Days #7 patch 04/08/24 [Rx] Ondansetron [Zofran] 4 mg PO TID PRN 04/08/24 [History] Sennosides [Senokot] 34.4 mg PO HS 04/08/24 [History] Spironolactone [Aldactone] 100 mg PO DAILY 04/08/24 [History] Triamcinolone 0.1% Cream [Kenalog 0.1% Cream] 1 applic TOPICAL BID PRN 04/08/24 [History] polyethylene glycoL 3350 [Miralax] 17 gm PO DAILY 04/08/24 [History] methocarbamoL [Robaxin-750] 1,500 mg PO TID PRN #30 tab 04/09/24 [Rx] Gabapentin 300 mg PO TID 04/16/24 [History] Levothyroxine Sodium [Synthroid] 75 mcg PO DAILY 04/16/24 [History] predniSONE [Deltasone] 20 mg PO BID 04/16/24 [History] Apixaban [Eliquis] 5 mg PO BID 04/17/24 [History] Cyclobenzaprine [Flexeril] 10 mg PO TID PRN #40 tab 04/22/24 [Rx] Gabapentin 300 mg PO TID #60 cap 04/22/24 [Rx] HYDROcodone/APAP 10-325MG [[place] 10-325] 1 tab PO Q4HR PRN #40 tab 04/22/24 [Rx] Magnesium Hydroxide [Milk of Magnesia] 2,400 mg PO DAILY PRN ml 04/22/24 [Rx] Na Phos,M-B/Na Phos,Di-Ba [Fleet Adult] 133 ml RECTAL DAILY PRN each 04/22/24 [Rx] Sennosides-Docusate Sodium [Senokot-S] 2 each PO DAILY tab 04/22/24 [Rx] Zolpidem [Ambien] 10 mg PO HS #2 tab 04/22/24 [Rx] bisacodyL [Dulcolax] 10 mg RECTAL DAILY PRN suppositor 04/22/24 [Rx] metroNIDAZOLE [Flagyl] 500 mg PO BID #10 tab 04/22/24 [Rx] Follow up Appointment(s)/Referral(s): Bri Steele MD [Primary Care Provider[facility] Ginny Estes, [NON-STAFF] - As Needed Ryan Resendiz DO [Doctor of Osteopathic Medicine] - 05/07/24 8:00 am Alonzo Felix [NON-STAFF] - As Needed (LSO back brace) Activity/Diet/Wound Care/Special Instructions: spine Discharge and Recovery Instructions Date of Surgery: 04/17/2024 Diagnosis: lumbar spondylosis with stenosis, acute progressing back pain, bilateral lower extremity weakness Procedure: L1-L5 posterolateral interbody fusion Medications: See medication list All medication refills should be obtained through your primary care doctor or y our clinic spine surgeon. Please discuss prescription refills at your follow up appointment. Do not call the hospital for medication refills. Activity: Encourage ambulation with assist of walker, Up and about 6-8x daily PT/OT daily work on balance, strength and mobility Up in chair with all meals Shower daily Brace: Use brace when up and about, do not wear in bed or shower Dressing: Leave your dressing in place for a total of 3 days post operatively. Then you may remove your dressing and leave open to air. Keep the area clean and if not able to keep area clean, then cover with sterile gauze and tape. Showering: You may shower 3 days after your procedure allowing soap and water to run over incision. Do not scrub. Do not soak. Blot dry. Follow up: Please confirm a follow up appointment with your surgeon 2 weeks post operatively. Please make an appointment to follow up with your PCP in 1-2 weeks after surgery for evaluation '3 phase, 3-week plan' POST OP WEEKS 1-3 1. Lifting/carrying/pushing/pulling limited to less than 5 pounds. 2. Do not sit for longer than 15 minutes at one time. Get up and walk around. Prolonged sitting is NOT advised. If you lay down, see if you can tolerate laying down on you front (belly side) 3. Walk for periods of 15 minutes = 1 mile but no longer; do it multiple times times each day. 4. Ice your low back after activity. POST OP WEEKS 3-6 1. Lifting limited to less than 20 pounds. 2. Do not sit for longer than 30 minutes at a time. Frequently change positions. Use a sit-to stand workstation or take frequent breaks from sitting if you have returned to work. 3. Walk for 30 minutes each day. If possible, do these three or more times a day POST OP WEEKS 6+ At your 6-week appointment we will give you a physical therapy referral to focus on a core stabilization and strengthening program. You should also work on leg & buttock strengthening, hamstring & quadriceps stretching, and continue a low impact aerobic activity program such as swimming, walking, or riding a stationary bicycle. During the initial 6 weeks after your surgery, you are at the highest risk of re-injuring your spine. You should generally avoid BLT's (bending, lifting and twisting combination motions) and follow the above guidelines to reduce the roche ce of reinjury. You can anticipate post op appointments in our office at approximately 3 weeks and 6 weeks after your surgery. INCISION CARE: If your incision is not draining you do NOT need to cover it with a dressing. Keep your incision clean, dry and intact. In most cases, we apply skin glue, pearl or sutures to the incision at the time of surgery. This will be like a crust or have the appearance of a scab and will fall off in time on its own. The stitches or pearl need to be removed at 3 weeks post op appointment. You may begin to shower 3 days after surgery (this allows the glue to dang well). However, please avoid scrubbing the incision site or peeling off any of the skin glue. This will ensure optimal healing of your incision. Also, during this time avoid soaking the incision area in water - this includes swimming pools, hot tubs or baths. No ointments, lotions or oils on the incision until your surgeon allows. Leave pearl, sutures or glue in place. Neurological dysfunction that comes on suddenly can also be a sign of a stroke. Below some common symptoms of a stroke are listed: B - balance difficulty such as sudden onset walking or leaning to one side - NEW E - eye problem such as sudden double vision or trouble seeing on one side - NEW F - Facial weakness or numbness on one side - NEW A - Arm or leg weakness or numbness on one side - NEW S - Slurred speech or difficulty with word finding - NEW T - Time is BRAIN! Call 911 as soon as you recognize these symptoms Diet: Consume a regular diet rich in vegetables and lean protein such as chicken or fish. You should consume in a ratio of approximately 20% fats|40% carbohydrates|40%protein. Vegetables, sweet potatoes, brown rice or quinoa are examples of good carbohydrates. Chips, white bread, cookies and sweets/sugar are examples of bad carbohydrates. Limit your bad carbs, go wild with good carbs. "Life's Simple 7" Guidelines as per [place] [employer] These will help you reclaim your life after surgery and heavy forger helper in your recovery, keeping in mind your restrictions. (1) Get Active. Physical activity can help people lose weight, control high blood pressure and cholesterol, feel emotionally better, and sleep better. (2) Control Cholesterol. Avoid a diet high in saturated fat, trans fat, & cholesterol. Limit whole milk & cream, ice cream, butter, egg yolks, processed meats (like sausage and hot dogs), and fatty meats. Choose healthy foods that are low in saturated fat, trans fat and cholesterol which include: Fruits and vegetables, fiber rich grain products (like whole grain pasta and brown rice), lean meat such as chicken, fish, nuts, seeds, and legumes. (3) Eat Better. Eat small portions. Shop at the grocery with a list and do not stray from it. Tips for a healthy diet include: Limit sodium intake to less than 1500mg daily, avoid prepackaged, processed, and fast foods, choose a diet rich in fruits, vegetables, and whole grain, high fiber foods, and limit saturated & cholesterol in your diet. (4) Manage Blood Pressure. If you have high blood pressure, you should have a cuff at home so that you can check your blood pressure regularly. Be sure you have a good cuff. An arm one is generally better than a wrist one. Bring the cuff to a doctor's appointment to validate that the measurements that your cuff are taking are accurate. Take your blood pressure twice daily when you are sitting down and relaxing. Record the numbers in a log and bring this log with you to your doctors' appointments. (5) Lose Weight if your BMI is above 25. A healthy BMI is between 19-25. To calculate Your BMI, you may use a Standard BMI Calculator on the NIH BMI website: <www.nhlbi.nih.gov/guidelines/obesity/BMI/bmicalc.htm>. Weigh oneself daily. If you are overweight, set a goal to lose weight. A pound a week loss if needed is a good target. (6) Reduce Blood Sugar. Limit foods and liquids with "added sugars." (Added sugars include sucrose, fructose, glucose, maltose, dextrose, high fructose corn syrup, corn syrup, concentrated fruit juice and honey). (7) Stop Smoking. If you smoke, quitting smoking is one of the best things that you can do for your health. Smoking increases your risk of heart attack, stroke, and peripheral vascular disease, which is a build-up of plaque in your arteries. Please discard all the cigarettes and lighters in your house. Have a plan for what you will do when you have the urge to smoke. Direct and second- hand smoke shortens your life as well as the lives of your family, friends and others around you. For your health and the health of those around you, please consider quitting! Proper Bending Body Mechanics: Maintain a wide stance with one foot slightly in front of the other. Keep your back straight. Bend utilizing the strength in your hips and knees. Do not bend at the waist. Maintain the lifted object at your waist-level close to your body. Avoid lifting weight that causes immediately pain or pain anywhere in the body afterwards. Smoking/Nicotine If there was ever one thing that you could do to increase your overall health, decrease your risk of cardiovascular problems by about 39% the second you make the choice, it is to STOP SMOKING. Your body's most instant gratification is the second you stop smoking. We have all heard the studies, read the articles but it is true, smoking is extremely bad for your overall health, and moreover it is detrimental to your bone health. Nicotine, IN ANY FORM, kills bone cells, prevents your body from healing fractures, and significantly prolongs healing after surgery. In spine surgery specifically, it increases your risk of not healing your bones to create a fusion and increases your risk of having a revision surgery due to this up to 60%. I know it is hard. I know it feels impossible. But there are ways. Take control of your life. We are here to help you through it. And when you are ready, ask us and we can direct you to help if you desire. Use the START Plan to Quit Smoking (please visit the Helpguide.org website listed below for more information): S = Set a quit date. Choose a date within the next 2 weeks, so you have enough time to prepare without losing your motivation to quit. If you mainly smoke at work, quit on the weekend, so you have a few days to adjust to the change. T = Tell family, friends, and co-workers that you plan to quit. Let your friends and family in on your plan to quit smoking and tell them you need their support and encouragement to stop. Look for a quit ricardo who wants to stop smoking as well. You can help each other get through the rough times. A = Anticipate and plan for the challenges you'll face while quitting. Most people who begin smoking again do so within the first 3 months. You can help yourself make it through by preparing ahead for common challenges, such as nicotine withdrawal and cigarette cravings. R = Remove cigarettes and other tobacco products from your home, car, and work. Throw away all your cigarettes (no emergency pack!), lighters, ashtrays, and matches. Wash your clothes and freshen up anything that smells like smoke. Shampoo your car, clean your drapes and carpet, and steam your furniture. T = Talk to your doctor about getting help to quit. Your doctor can prescribe medication to help with withdrawal and suggest other alternatives. If you can't see a doctor, you can get many products over the counter at your local pharmacy or grocery store, including the nicotine patch, nicotine lozenges, and nicotine gum. Resources for Quitting Smoking: <https://www.[place].gov/documents/[facility]/Quit_Tobacco_Resources_for_patients_313 480_7.pdf> Supplementation: Take recommended dosages of Vitamin D and Calcium to help fortify your bones and help them to heal. See your health maintenance packet for dosages and recommended levels. DVT/VTE prophylaxis: You will be given compression stockings from the hospital. Wear these daily for the first two weeks after surgery. You may take them off at night. You may be prescribed a medication to help thin your blood. Take this as directed. If you are not prescribed this medication, early and frequent ambulation has been shown to be the best prophylaxis to deep vein thrombosis and sequelae related to this event. Discharge Disposition: TRANSFER TO SNF/ECF
[2024-04-22 14:02] VITALS: BP 112/72; PULSE 95; RESP 17; TEMP 98.2
--- NOTE | 2024-04-22 14:02 | P.PN ---
Subjective Progress Note Date: 04/22/24 This is a pleasant 78-year-old female who presents for severe back pain with known history of lumbar disc herniation. Patient is scheduled to undergo L1-L5 decompression and stabilization today with Dr. Resendiz. Resumed all appropriate home medications. Is maintained on Eliquis chronically on an o utpatient basis which is currently on hold at this time secondary to planned lumbar surgery and will recommend to be resumed as soon as possible after surgery when cleared by orthopedics. Labs today reveal a white blood cell count of 10.4, hemoglobin 15.5, sodium level of 135, potassium 5.0, BUN of 17, creatinine of 0.65. Urinalysis was within normal limits. 04/18/2024 Eval today she is postoperative day #1 L1-L5 decompression and stabilization. She is reporting significant pain while up ambulating however sitting in the chair she is comfortable at about a 4 out of 10. Indwelling Riggins catheter will be removed today and patient is encouraged to get up and ambulate. Patient has been resumed on Eliquis postoperatively. 95% oxygen saturation on 2 L of nasal cannula and this can be weaned off. 07/20/2023 Patient is eval today resting in bed she is postoperative day #2 L1-L5 decompre ssion and stabilization. She was having some worsening lumbar back pain with a saturated dressing yesterday overnight and the Hemovac had come dislodged on its own. She is currently waiting to be evaluated by orthopedics today. Following Riggins catheter has been removed she has been up to the bathroom although she is not wanting to drink much water because she states that it makes her pee. 04/20/2024 Patient is seen and evaluated in follow-up this morning with orthopedics following status post L1-L5 decompression. Patient reports she was able to get up today and reported some right hip pain and swelling. Will obtain a Doppler along with hip x-ray as patient is reporting severe pain in that area. Patient is continued on Eliquis and has been resumed. Patient is afebrile although con tinues on a few liters of oxygen and reports she does not wear this at home. Encouraged sitting up more frequently and using incentive spirometer at least 10 times an hour while awake. 04/21/2024 Patient seen and evaluated in follow-up this morning with no acute overnight issues noted. Patient continues to report right hip pain and a Doppler along with x-ray was obtained and negative for DVT. Patient is sitting up in the chair and awaiting an LSO brace to be delivered. Plan is for patient to go to [facility] and currently awaiting insurance authorization. Patient is afebrile with no reports of chest pain or shortness of breath. Patient reports is using incentive spirometer and will continue to encourage at least 10 times every hour while awake. Patient reports is voiding with no difficulties and is passing gas but has not had a bowel movement yet. Continue bowel regimen at this time. 04/22/2024 Patient is seen and evaluated in follow-up this morning with orthopedics as admitting. Patient has received insurance authorization and will be going to [facility] for continued PT/OT therapy. Patient is afebrile with no reports of chest pain or shortness of breath. Patient has been tolerating diet and is passing gas and having bowel movements. Patient also has been urinating with no difficulties. Home medications reviewed and resumed as appropriate and patient is medically stable for discharge to [facility] once cleared by orthopedics. Review of Systems Constitutional: Denied any fatigue denied any fever. Cardio vascular: denied any chest pain, palpitations Gastrointestinal: denied any nausea, vomiting, diarrhea, reports passing gas and urinating, having bowel movements Pulmonary: Denied any shortness of breath cough Neurologic denied any new focal deficits, reports to feeling weak with right hip pain All inpatient medications were reviewed and appropriate changes in these medications as dictated in the interval history and assessment and plan PHYSICAL EXAMINATION: GENERAL: The patient is alert and oriented x3, not in any acute distress. Well developed, well nourished. Elderly appearing, morbidly obese HEENT: Pupils are round and equally reacting to light. EOMI. No scleral icterus. No conjunctival pallor. Normocephalic, atraumatic. No pharyngeal erythema. No thyromegaly. CARDIOVASCULAR: S1 and S2 present. No murmurs, rubs, or gallops. PULMONARY: Diminished breath sounds bilaterally otherwise chest is clear to auscultation, no wheezing or crackles. ABDOMEN: Soft, obese, nontender, nondistended, normoactive bowel sounds. No palpable organomegaly. MUSCULOSKELETAL: No joint swelling or deformity. EXTREMITIES: No cyanosis, clubbing, or pedal edema. Right hip pain and tenderness in the thigh region on palpation, although feels slightly improved NEUROLOGICAL: Gross neurological examination did not reveal any focal deficits. Diffusely weak SKIN: No rashes. Assessment: Severe back pain with lumbar disc herniation postoperative L1-L5 decompression and stabilization History of DVT PE has been resumed on eliquis Gastroesophageal reflux disease Right hip pain, ruled out fracture on imaging History of hyperlipidemia History of thyroid disorder Morbid obesity with a BMI of 43.3 GI prophylaxis DVT prophylaxis Full code Plan: Continue all same home medications, eliquis has been resumed postoperatively We will stop the Aldactone today as her blood pressure did drop into the high 90s systolic. Continue off aldactone may resume if blood pressures are elevated in the outpatient setting. Patient was reporting right hip pain and tenderness with swelling and Doppler was obtained and negative for DVT, right hip x-ray negative for any acute fractures. Continue to encourage incentive spirometer use at least 10 times every hour while awake Patient will be going to [place] and has received insurance authorization with case management following. Patient is medically stable once cleared from orthopedics. Thank you for this consultation. We will continue to follow along closely this hospital stay. The impression and plan of care has been dictated by Mira Brunner, Nurse Practitioner as directed. Dr. Cole MD I have performed a history and physical examination and medical decision making of this patient, discussed the same with the dictator, and agree with the dictators assessment and plan as written, documented as a scribe. Based on total visit time, I have performed more than 50% of this visit. Creatinine better Objective - Vital Signs Vital signs: Vital Signs Temp 97.5 F L 04/22/24 07:23 Pulse 87 04/22/24 07:23 Resp 17 04/22/24 07:23 BP 120/78 04/22/24 07:23 Pulse Ox 97 04/21/24 23:51 FiO2 Intake & Output 04/21/24 04/22/24 04/22/24 18:59 06:59 18:59 Intake Total 120 1620 240 Balance 120 1620 240 Intake: Oral 120 1620 240 Other: Voiding Method Bedside Commode # Voids 2 - Labs CBC & Chem 7: 04/21/24 06:11 04/21/24 06:11
== END 2024-04-22 15:26 | DRG 448 ==
LOC: EC 09:53 → 4SSUR 13:15 → OBSVTOIN 04-21 13:03
PROVIDERS: ADMIT Orthopaedic Surgery; ATTEND Orthopaedic Surgery
PROC: 0ST20ZZ Resection of Lumbar Vertebral Disc, Open Approach (ICD-10-PCS; 2024-04-17)
PROC: 01NB0ZZ Release Lumbar Nerve, Open Approach (ICD-10-PCS; 2024-04-17)
PROC: 0SG10AJ Fusion of 2 or more Lumbar Vertebral Joints with Interbody Fusion Device, Posterior Approach, Anterior Column, Open Approach (ICD-10-PCS; principal; 2024-04-17 08:40)
DX: M51.16 Intervertebral disc disorders with radiculopathy, lumbar region (principal); Z68.41 Body mass index [BMI] 40.0-44.9, adult; M47.16 Other spondylosis with myelopathy, lumbar region; M51.06 Intervertebral disc disorders with myelopathy, lumbar region; K21.9 Gastro-esophageal reflux disease without esophagitis; E78.5 Hyperlipidemia, unspecified; E66.01 Morbid (severe) obesity due to excess calories; G89.29 Other chronic pain; M43.16 Spondylolisthesis, lumbar region; M47.26 Other spondylosis with radiculopathy, lumbar region; M48.061 Spinal stenosis, lumbar region without neurogenic claudication; Z79.01 Long term (current) use of anticoagulants; Z79.890 Hormone replacement therapy; Z79.899 Other long term (current) drug therapy; Z86.711 Personal history of pulmonary embolism; Z86.718 Personal history of other venous thrombosis and embolism
CPT/HCPCS: 36415; 71045; 72131; 73502; 80048; 80053; 81001; 85025; 85610; 85730; 86850; 86900; 86901; 93005; 96365; 96366; 96375; 99285

== ENCOUNTER 2024-05-18 16:48 | Emergency (ER) | payer MEDICARE ==
--- NOTE | 2024-05-18 17:01 | ED ---
General Adult HPI - General Chief complaint: Nausea/Vomiting/Diarrhea Stated complaint: diarrhea Time Seen by Provider: 05/18/24 16:50 Source: patient, EMS, RN notes reviewed Mode of arrival: EMS Limitations: no limitations - History of Present Illness Initial comments: Patient is a 79-year-old female present to the emergency department from prison with concerns for diarrhea. Symptoms have been present for the past 5 days. Patient is having multiple episodes of watery diarrhea daily. Patient has nausea without vomiting. No abdominal pain, occasional cramping. No documented fevers. - Related Data Home Medications Medication Instructions Recorded Confirmed Montelukast [Singulair] 10 mg PO HS 12/05/14 04/16/24 Multivitamins, Thera [Multivitamin 1 tab PO DAILY@1200 12/05/14 04/16/24 (formulary)] Simvastatin [Zocor] 20 mg PO HS 12/05/14 04/16/24 Calcium Carbonate [Calcium] 600 mg PO DAILY@1200 08/18/22 04/16/24 Cetirizine HCl [Zyrtec] 10 mg PO DAILY@1200 08/18/22 04/16/24 Cholecalciferol [Vitamin D3 (25 25 mcg PO DAILY@1200 08/18/22 04/16/24 Mcg = 1000 Iu)] Liothyronine Sodium [Cytomel] 5 mcg PO BID 08/18/22 04/16/24 cycloSPORINE 0.05% OPHTH SOLN 1 applicator BOTH EYES Q12H 08/18/22 04/16/24 [Restasis] guaiFENesin [Mucinex] 600 mg PO BID 08/18/22 04/16/24 Folic Acid 0.4 mg PO DAILY@1200 04/08/24 04/16/24 Ondansetron [Zofran] 4 mg PO TID PRN 04/08/24 04/16/24 Sennosides [Senokot] 34.4 mg PO HS 04/08/24 04/16/24 Spironolactone [Aldactone] 100 mg PO DAILY 04/08/24 04/16/24 Triamcinolone 0.1% Cream [Kenalog 1 applic TOPICAL BID PRN 04/08/24 04/16/24 0.1% Cream] polyethylene glycoL 3350 [Miralax] 17 gm PO DAILY 04/08/24 04/16/24 Gabapentin 300 mg PO TID 04/16/24 04/16/24 Levothyroxine Sodium [Synthroid] 75 mcg PO DAILY 04/16/24 04/16/24 predniSONE [Deltasone] 20 mg PO BID 04/16/24 04/16/24 Apixaban [Eliquis] 5 mg PO BID 04/17/24 04/17/24 Previous Rx's Medication Instructions Recorded Famotidine [Pepcid] 20 mg PO BID #60 tablet 08/21/22 Cyclobenzaprine [Flexeril] 10 mg PO TID PRN #15 tab 04/08/24 Lidocaine 5% Patch [Lidoderm 5% 1 patch TOPICAL DAILY PRN 7 Days 04/08/24 Patch] #7 patch methocarbamoL [Robaxin-750] 1,500 mg PO TID PRN #30 tab 04/09/24 Cyclobenzaprine [Flexeril] 10 mg PO TID PRN #40 tab 04/22/24 Gabapentin 300 mg PO TID #60 cap 04/22/24 HYDROcodone/APAP 10-325MG [[place] 1 tab PO Q4HR PRN #40 tab 04/22/24 10-325] Magnesium Hydroxide [Milk of 2,400 mg PO DAILY PRN ml 04/22/24 Magnesia] Na Phos,M-B/Na Phos,Di-Ba [Fleet 133 ml RECTAL DAILY PRN each 04/22/24 Adult] Sennosides-Docusate Sodium 2 each PO DAILY tab 04/22/24 [Senokot-S] Zolpidem [Ambien] 10 mg PO HS #2 tab 04/22/24 bisacodyL [Dulcolax] 10 mg RECTAL DAILY PRN suppositor 04/22/24 metroNIDAZOLE [Flagyl] 500 mg PO BID #10 tab 04/22/24 Ondansetron Odt [Zofran Odt] 4 mg PO Q8HR PRN #10 tab 05/18/24 Allergies Allergy/AdvReac Type Severity Reaction Status Date / Time levofloxacin [From Levaquin] Allergy Swelling Verified 05/18/24 16:59 moxifloxacin HCl Allergy Swelling Verified 05/18/24 16:59 [From Avelox] Sulfa (Sulfonamide Allergy Swelling Verified 05/18/24 16:59 Antibiotics) aspartame AdvReac headaches Verified 05/18/24 16:59 Review of Systems ROS Statement: Those systems with pertinent positive or pertinent negative responses have been documented in the HPI. ROS Other: All systems not noted in ROS Statement are negative. Constitutional: Reports: as per HPI Eyes: Denies: eye pain ENT: Denies: ear pain Respiratory: Denies: cough, dyspnea Cardiovascular: Denies: chest pain Gastrointestinal: Reports: as per HPI, nausea, diarrhea Musculoskeletal: Denies: back pain Neurological: Denies: headache Past Medical History Past Medical History: Deep Vein Thrombosis (DVT), GERD/Reflux, Hyperlipidemia, Pulmonary Embolus (PE), Thyroid Disorder, Vascular Disorder Additional Past Medical History / Comment(s): Hx colon polyps. Hx PE bilateral lungs 2022. Possible Sleep Apnea. History of Any Multi-Drug Resistant Organisms: None Reported Past Surgical History: Orthopedic Surgery Additional Past Surgical History / Comment(s): Face lift, bilateral knee - torn meniscus repair, bilateral thumb tendons replaced, colonoscopy. Past Anesthesia/Blood Transfusion Reactions: Motion Sickness, Postoperative Nausea & Vomiting (PONV) Additional Past Anesthesia/Blood Transfusion Reaction / Comment(s): No hx blood transfusion. Past Psychological History: No Psychological Hx Reported Smoking Status: Never smoker Past Alcohol Use History: None Reported Past Drug Use History: None Reported - Past Family History Mother Family Medical History: Deep Vein Thrombosis (DVT) Father Family Medical History: Cancer, Deep Vein Thrombosis (DVT) General Exam Limitations: no limitations General appearance: alert, in no apparent distress Head exam: Present: normocephalic Eye exam: Present: normal appearance ENT exam: Present: normal oropharynx Neck exam: Present: normal inspection Respiratory exam: Present: normal lung sounds bilaterally Cardiovascular Exam: Present: regular rate, normal rhythm GI/Abdominal exam: Present: soft, normal bowel sounds. Absent: distended, tenderness, guarding, rebound, rigid, pulsatile mass Extremities exam: Present: normal inspection Neurological exam: Present: alert Psychiatric exam: Present: normal affect, normal mood Skin exam: Present: normal color Course Vital Signs 05/18/24 05/18/24 05/18/24 16:55 17:00 18:00 Temperature 98.8 F 98.1 F Pulse Rate 78 80 82 Respiratory 18 18 18 Rate Blood Pressure 124/70 124/70 118/77 O2 Sat by Pulse 98 99 Oximetry 05/18/24 18:51 Temperature Pulse Rate 78 Respiratory 18 Rate Blood Pressure 129/67 O2 Sat by Pulse 96 Oximetry Medical Decision Making - Medical Decision Making Was pt. sent in by a medical professional or institution (JESUS Dinh, [employer] PROPERTY MANAGER, urgent care, hospital, or prison...) When possible be specific @ -Patient was sent in by prison Did you speak to anyone other than the patient for history (EMS, parent, family, police, friend...)? What history was obtained from this source @ -No Did you review nursing and triage notes (agree or disagree)? Why? @ -I reviewed and agree with nursing and triage notes Were old charts reviewed (outside hosp., previous admission, EMS record, old EKG, old radiological studies, urgent care reports/EKG's, prison records)? Report findings @ -Reviewed from nursing facility Differential Diagnosis (chest pain, altered mental status, abdominal pain women, abdominal pain men, vaginal bleeding, weakness, fever, dyspnea, syncope, headache, dizziness, GI bleed, back pain, seizure, CVA, palpatations, mental health, musculoskeletal)? @ -Differential Abdominal Pain Women: Appendicitis, Cholecystitis, diverticulosis, ischemic bowel, pancreatitis, h epatitis, UTI, gastroenteritis, AAA, incarcerated hernia, bowel obstruction, constipation, inflammatory bowel, hepatitis, peptic ulcer disease, splenic infarction, perforated viscus, vulvitis, ovarian torsion, PID, kidney stone, placenta abruption, this is not meant to be an all-inclusive list EKG interpreted by me (3pts min.). @ -As above X-rays interpreted by me (1pt min.). @ -None done CT interpreted by me (1pt min.). @ -None done U/S interpreted by me (1pt. min.). @ -None done What testing was considered but not performed or refused? (CT, X-rays, U/S, labs)? Why? @ -Considered stool testing however patient did not produce any diarrhea in the emergency department What meds were considered but not given or refused? Why? @ -None Did you discuss the management of the patient with other professionals (professionals i.e. JESUS Dinh, [employer]ERTY MANAGER, lab, RT, psych nurse, outreach and education social worker, sales assistant entertainment and media, teacher, global chief experience officer, case management associate)? Give summary @ -No Was smoking cessation discussed for >3mins.? @ -No Was critical care preformed (if so, how long)? @ -No Were there social determinants of health that impacted care today? How? (Homelessness, low income, unemployed, alcoholism, drug addiction, transportation, low edu. Level, literacy, decrease access to med. care, long-term, rehab)? @ -No Was there de-escalation of care discussed even if they declined (Discuss DNR or withdrawal of care, Hospice)? DNR status @ -No What co-morbidities impacted this encounter? (DM, HTN, Smoking, COPD, CAD, Can cer, CVA, ARF, Chemo, Hep., AIDS, mental health diagnosis, sleep apnea, morbid obesity)? @ -None Was patient admitted / discharged? Hospital course, mention meds given and route, prescriptions, significant lab abnormalities, going to OR and other pertinent info. @ -Patient presents with concerns for diarrhea and nausea. Workup unremarkable. No diarrhea in the emergency department. Patient reevaluated and updated. Patient to be discharged with follow-up. Undiagnosed new problem with uncertain prognosis? @ -No Drug Therapy requiring intensive monitoring for toxicity (Heparin, Nitro, Insul in, Cardizem)? @ -No Were any procedures done? @ -No Diagnosis/symptom? @ -Diarrhea Acute, or Chronic, or Acute on Chronic? @ -Acute Uncomplicated (without systemic symptoms) or Complicated (systemic symptoms)? @ -Default Side effects of treatment? @ -No Exacerbation, Progression, or Severe Exacerbation? @ -No Poses a threat to life or bodily function? How? (Chest pain, USA, MS, pneumonia, PE, COPD, DKA, ARF, appy, cholecystitis, CVA, Diverticulitis, Homicidal, Suicidal, threat to staff... and all critical care pts) @ -No - Lab Data Result diagrams: 05/18/24 17:00 05/18/24 17:00 Lab Results 05/18/24 05/18/24 Range/Units 17:00 17:00 WBC 7.6 (3.8-10.6) k/uL RBC 4.30 (3.80-5.40) m/uL Hgb 13.6 (11.4-16.0) gm/dL Hct 42.5 (34.0-46.0) % MCV 98.7 (80.0-100.0) fL MCH 31.5 (25.0-35.0) pg MCHC 31.9 (31.0-37.0) g/dL RDW 14.1 (11.5-15.5) % Plt Count 459 H (150-450) k/uL MPV 6.7 Neutrophils % 81 % Lymphocytes % 12 % Monocytes % 5 % Eosinophils % 2 % Basophils % 0 % Neutrophils # 6.1 (1.3-7.7) k/uL Lymphocytes # 0.9 L (1.0-4.8) k/uL Monocytes # 0.3 (0-1.0) k/uL Eosinophils # 0.1 (0-0.7) k/uL Basophils # 0.0 (0-0.2) k/uL Hypochromasia Slight Sodium 133 L (137-145) mmol/L Potassium 4.0 (3.5-5.1) mmol/L Chloride 104 (98-107) mmol/L Carbon Dioxide 23 (22-30) mmol/L Anion Gap 6 mmol/L BUN 6 L (7-17) mg/dL Creatinine 0.60 (0.52-1.04) mg/dL Est GFR (CKD-EPI)AfAm >90 (>60 ml/min/1.73 sqM) Est GFR (CKD-EPI)NonAf 88 (>60 ml/min/1.73 sqM) Glucose 100 H (74-99) mg/dL Calcium 8.8 (8.4-10.2) mg/dL Total Bilirubin 1.0 (0.2-1.3) mg/dL AST 22 (14-36) U/L ALT 14 (4-34) U/L Alkaline Phosphatase 220 H (38-126) U/L Total Protein 5.5 L (6.3-8.2) g/dL Albumin 3.2 L (3.5-5.0) g/dL Amylase 34 (30-110) U/L Lipase 190 (23-300) U/L Disposition Clinical Impression: Diarrhea Disposition: HOME SELF-CARE Condition: Stable Instructions (If sedation given, give patient instructions): Acute Nausea and Vomiting (ED), Acute Diarrhea (ED) Additional Instructions: Prescription for nausea medicine sent to pharmacy. Consider stool testing, prescription for C. difficile provided. Return for not tolerating fluids, fevers, pain, weakness, worsening or changing symptoms or any other concerns. Prescriptions: Ondansetron Odt [Zofran Odt] 4 mg PO Q8HR PRN #10 tab PRN Reason: Nausea Is patient prescribed a controlled substance at d/c from ED?: No Referrals: Bri Steele MD [Primary Care Provider] - 1-2 days Time of Disposition: 19:22
[2024-05-18 17:23] LABS: Basophils % (A) 0 %; Eosinophils # (A) 0.1 k/uL (0-0.7); Eosinophils % (A) 2 %; HCT 42.5 % (34.0-46.0); HGB 13.6 gm/dL (11.4-16.0); Hypochromasia Slight; Lymphocytes # (A) 0.9 k/uL (1.0-4.8); Lymphocytes % (A) 12 %; MCH 31.5 pg (25.0-35.0); MCHC 31.9 g/dL (31.0-37.0); MCV 98.7 fL (80.0-100.0); Mean Platelet Volume 6.7; Monocytes # (A) 0.3 k/uL (0-1.0); Monocytes % (A) 5 %; Neutrophils # (A) 6.1 k/uL (1.3-7.7); Neutrophils % (A) 81 %; Platelet Count 459 k/uL (150-450); RDW 14.1 % (11.5-15.5); WBC 7.6 k/uL (3.8-10.6)
[2024-05-18 17:30] VITALS: RESP 18
[2024-05-18] MEDS: SODIUM CHLORIDE 0.9% 1,000 ML IV STA (17:31)
[2024-05-18] MEDS: FAMOTIDINE 20 MG/2 ML VIAL IV STA (17:32)
[2024-05-18 17:33] LABS: ALT 14 U/L (4-34); AST 22 U/L (14-36); African American GFR (CKD) >90 (>60 ml/min/1.73 sqM); Albumin 3.2 g/dL (3.5-5.0); Alkaline Phosphatase 220 U/L (38-126); Amylase 34 U/L (30-110); Anion Gap 6 mmol/L; Blood Urea Nitrogen 6 mg/dL (7-17); Calcium 8.8 mg/dL (8.4-10.2); Carbon Dioxide 23 mmol/L (22-30); Chloride 104 mmol/L (98-107); Glucose 100 mg/dL (74-99); Lipase 190 U/L (23-300); Non-African American GFR(CKD) 88 (>60 ml/min/1.73 sqM); Sodium 133 mmol/L (137-145); Total Protein 5.5 g/dL (6.3-8.2)
[2024-05-18] MEDS: DICYCLOMINE 10 MG/ML 2 ML AMP IM STA (17:34)
[2024-05-18 18:29] VITALS: TEMP 98.1
[2024-05-18 18:52] VITALS: BP 129/67; PULSE 78
[2024-05-18] MEDS: ONDANSETRON 4 MG/2 ML VIAL IVP STA (19:39)
== END 2024-05-18 22:06 | disposition home or self-care (01) ==
LOC: EC 16:48
DX: R19.7 Diarrhea, unspecified (principal); Z88.1 Allergy status to other antibiotic agents; Z88.2 Allergy status to sulfonamides; Z88.8 Allergy status to other drugs, medicaments and biological substances
CPT/HCPCS: 36415; 80053; 82150; 83690; 85025; 99284; 96372; 96374; 96375; 96361; J0500; J2405; J3490

== ENCOUNTER 2024-06-04 13:08 | Day surgery (SDC) | payer MEDICARE ==
[2024-06-03 10:23] VITALS: BMI 32.8
[~2024-06-04 13:08] MED LIST changes: -LACTATED RINGERS 1,000 ML IV SCH
[2024-06-04 13:59] VITALS: TEMP 97
[2024-06-04] MEDS: IV FLUID CONTINUATION 1,000 ML IV ONE ×2 (14:05→14:51)
[2024-06-04] MEDS: LACTATED RINGERS 1,000 ML IV SCH (14:19)
[2024-06-04] MEDS: ONDANSETRON 4 MG/2 ML VIAL IVP STA (14:21)
[2024-06-04 14:25] LABS: Basophils % (A) 0 %; Eosinophils # (A) 0.2 k/uL (0-0.7); Eosinophils % (A) 3 %; HCT 42.3 % (34.0-46.0); HGB 13.5 gm/dL (11.4-16.0); Lymphocytes # (A) 1.2 k/uL (1.0-4.8); Lymphocytes % (A) 19 %; MCH 30.5 pg (25.0-35.0); MCHC 31.9 g/dL (31.0-37.0); MCV 95.6 fL (80.0-100.0); Monocytes # (A) 0.4 k/uL (0-1.0); Monocytes % (A) 7 %; Neutrophils # (A) 4.4 k/uL (1.3-7.7); Neutrophils % (A) 70 %; Platelet Count 368 k/uL (150-450); RBC 4.42 m/uL (3.80-5.40); RDW 13.8 % (11.5-15.5); WBC 6.3 k/uL (3.8-10.6)
[2024-06-04 14:45] LABS: ALT 14 U/L (4-34); African American GFR (CKD) >90 (>60 ml/min/1.73 sqM); Anion Gap 6 mmol/L; Blood Urea Nitrogen 5 mg/dL (7-17); Calcium 8.5 mg/dL (8.4-10.2); Carbon Dioxide 21 mmol/L (22-30); Chloride 108 mmol/L (98-107); Glucose 101 mg/dL (74-99); Non-African American GFR(CKD) 89 (>60 ml/min/1.73 sqM); Sodium 135 mmol/L (137-145); Total Bilirubin 1.6 mg/dL (0.2-1.3)
[2024-06-04 14:50] LABS: AST 39 U/L (14-36); Albumin 2.9 g/dL (3.5-5.0); Alkaline Phosphatase 186 U/L (38-126); Potassium 4.9 mmol/L (3.5-5.1); Total Protein 5.6 g/dL (6.3-8.2)
[2024-06-04] MEDS ORDERED: PROPOFOL 10 MG/ML 20 ML VIAL IV ONE (14:55)
[2024-06-04] MEDS ORDERED: LIDOCAINE 1% INJ 10MG/ML (20 ML MDV) ONE (14:55)
--- NOTE | 2024-06-04 15:04 | P.PCN ---
Date of Procedure: 06/04/24 Procedure(s) Performed: BRIEF HISTORY: Patient is a 79-year-old, pleasant, white female scheduled for an upper endoscopy as a part of evaluation of chronic persistent nausea vomiting for the last 2 months duration. She started having the symptoms after spinal fusion surgery. She denies being on any new medications. Presently on. PROCEDURE PERFORMED: Esophagogastroduodenoscopy with biopsy. PREOPERATIVE DIAGNOSIS: Chronic persistent nausea vomiting of 2 months duration. IV sedation per anesthesia. PROCEDURE: After informed consent was obtained, the patient was brought into the endoscopy unit. IV sedation was administered by Anesthesia under continuous monitoring. Initially the Olympus GIF-140 video endoscope was inserted into the mouth. Esophagus intubated without any difficulty. It was gradually advanced into the stomach and duodenum and carefully examined. The bulb and the second part of the duodenum appeared normal. These were done from the duodenum rule out celiac disease. The scope at this time was withdrawn to the stomach, adequately insufflated with air, and upon careful examination, mucosa of the antrum had gastritis and biopsies were done from this area. Mucosa of the, body, cardia and the fundus appeared normal. The scope was then withdrawn into the esophagus. Small hiatal hernia noted. The GE junction was located at 39 cm from the incisors. There was mucosal erythema with erosions noted in the distal esophagus consistent with LA grade B reflux esophagitis. Rest of the esophagus appeared normal and the patient tolerated the procedure well. IMPRESSION: 1. Antral erosive gastritis. 2. Small hiatal hernia with LA grade B reflux esophagitis 3. No evidence of peptic ulcer disease or gastric outlet obstruction. RECOMMENDATIONS: The findings of this examination were discussed with the patient as well as her family. She was advised to follow with the biopsy results. Continue with Protonix 40 mg daily and promethazine as needed and follow-up in the office in 2 weeks.
[2024-06-04 15:47] VITALS: BP 127/81; PULSE 83; RESP 20
[2024-06-04] MEDS: METOCLOPRAMIDE 5 MG/ML 2 ML VIAL IVP STA (16:32)
[2024-06-04] MEDS: FAMOTIDINE 20 MG/2 ML VIAL IV STA (16:33)
== END 2024-06-04 17:08 | disposition home or self-care (01) ==
LOC: ORWHC2ENDO 13:08
PROVIDERS: ATTEND Internal Medicine Gastroenterology
DX: K31.9 Disease of stomach and duodenum, unspecified (principal); K29.80 Duodenitis without bleeding; K21.00 Gastro-esophageal reflux disease with esophagitis, without bleeding; K29.60 Other gastritis without bleeding; K44.9 Diaphragmatic hernia without obstruction or gangrene; E78.5 Hyperlipidemia, unspecified; E03.9 Hypothyroidism, unspecified; F17.200 Nicotine dependence, unspecified, uncomplicated; Z88.2 Allergy status to sulfonamides; Z88.8 Allergy status to other drugs, medicaments and biological substances; Z86.73 Personal history of transient ischemic attack (TIA), and cerebral infarction without residual deficits; Z86.711 Personal history of pulmonary embolism; Z79.890 Hormone replacement therapy; Z79.899 Other long term (current) drug therapy; Z79.01 Long term (current) use of anticoagulants
CPT/HCPCS: 88305; 80053; 82533; 84443; 85025; 43239; J2765; J2405; J2003; J3490; J2704

== ENCOUNTER → 2024-06-27 | Outpatient (CLI) | payer MEDICARE ==
[2024-06-27 11:58] LABS: African American GFR (CKD) >90 (>60 ml/min/1.73 sqM); Blood Urea Nitrogen 7 mg/dL (7-17); Non-African American GFR(CKD) 88 (>60 ml/min/1.73 sqM)
--- NOTE | 2024-06-27 13:55 | CT ---
EXAMINATION TYPE: CT abdomen pelvis w con CT DLP: 1335 mGycm, Automated exposure control for dose reduction was used. DATE OF EXAM: 06/27/2024 1:18 PM COMPARISON: CT lumbar spine 04/18/2024, CT abdomen and pelvis 02/02/2024 CLINICAL INDICATION:Female, 79 years old with history of R11.0 NAUSEA; abdominal pain, nausea, vomiti ng TECHNIQUE: Standard CT of the abdomen and pelvis following the administration of 100 cc of Isovue 3 00 IV contrast material and oral contrast. Coronal and sagittal reformats were performed. FINDINGS: LOWER CHEST: Posterior dependent subsegmental atelectasis is noted. Heart upper limits of normal in s ize. ABDOMEN LIVER: Unremarkable GALLBLADDER AND BILE DUCTS: The gallbladder is surgically absent. PANCREAS: No pancreatic ductal dilatation. No surrounding inflammatory changes. Pancreatic body 1.4 c m cystic lesion (series 3, image 20). Not well visualized in prior exam. SPLEEN: Unremarkable. ADRENAL GLANDS: Unremarkable. KIDNEYS AND URETERS: No evidence of hydronephrosis or renal calculus. The kidneys enhance symmetrical ly. Contrast is demonstrated within both collecting systems on the delayed phase. Duplicated left col lecting system. PELVIS BLADDER: Underdistended, limiting evaluation. REPRODUCTIVE: Unremarkable. ABDOMEN & PELVIS STOMACH AND BOWEL: Stomach and duodenum are unremarkable. Enteric contrast reaches the descending col on. Distal colonic diverticulosis without evidence for acute diverticulitis. The appendix is within n ormal limits. No focal bowel wall thickening or surrounding inflammatory changes. No evidence of shannon l obstruction. PERITONEUM: No evidence of pneumoperitoneum or free fluid. VASCULATURE: No evidence of aortic aneurysm. MUSCULOSKELETAL: No acute osseous abnormalities. Postsurgical changes of the lumbar spine with bilate ral pedicular screws and rods with disc spacers involving L1-L5 there are laminectomy changes. Fixed L4 on L5 grade 1 anterolisthesis. New anterior wedge compression deformity with superior endplate scl erosis involving the T12 vertebral body with approximately 10% height loss and 1 mm retropulsion. LYMPH NODES: No gross evidence for lymphadenopathy. SOFT TISSUE/ABDOMINAL WALL: Postsurgical changes from umbilical hernia repair with mesh. IMPRESSION: 1. No acute intra-abdominal/pelvic process. 2. New anterior wedge compression deformity involving the T12 vertebral body with approximately 10% h eight loss and 1 mm retropulsion. Correlate with point tenderness. 3. Colonic diverticulosis without evidence for acute diverticulitis. 4. Pancreatic body 1.4 cm cystic lesion. Further evaluation with MR abdomen with IV contrast (pancrea tic mass protocol) is recommended. [facility], , 06/27/2024 1:53 PM
== END | disposition home or self-care (01) ==
LOC: RADCTMAIN 10:58
PROVIDERS: ATTEND Internal Medicine Gastroenterology
DX: M48.54XA Collapsed vertebra, not elsewhere classified, thoracic region, initial encounter for fracture (principal); R11.0 Nausea; K86.89 Other specified diseases of pancreas; K57.30 Diverticulosis of large intestine without perforation or abscess without bleeding
CPT/HCPCS: 82565; 84520; 74177; 36415; Q9967

== ENCOUNTER → 2024-07-24 | Outpatient (CLI) | payer MEDICARE ==
--- NOTE | 2024-07-25 19:35 | MR ---
EXAMINATION TYPE: MR abdomen wo/w con DATE OF EXAM: 07/24/2024 5:15 PM INDICATION: Patient age:Female; 79 years old; Reason for study: R93.5 ABN FINDINGS; PHH. COMPARISON: CT abdomen and pelvis 06/27/2024, 02/02/2024 TECHNIQUE: Multiplanar multi-sequence imaging was performed without and with IV contrast. The patien t was given 8.5 ccs of Gadobutrol intravenously and dynamic imaging was performed. Post IV contrast s ubtraction images were also submitted for review. FINDINGS: LOWER CHEST: No significant irregularity. ABDOMEN Liver: Noncirrhotic morphology. No focal lesion. No drop out of signal on out of phase imaging to sug gest hepatic steatosis. Gallbladder and Bile ducts: Gallbladder surgically absent. No biliary ductal dilatation. Pancreas: No pancreatic ductal dilatation. No surrounding fluid collections. Pancreatic head 1.1 cm T 2 hyperdense cyst with thin septation (series 401, image 11). Pancreatic body 1 cm T2 hyperintense cy stic lesion (series 401, image 10). T2 hyperintense multi thin septated cystic lesion within the panc reatic body measuring up to 2.3 cm (series 401, image 11). None of these lesions demonstrate mural no dularity or suspicious enhancement. Spleen: Unremarkable. Adrenal glands: Unremarkable. Kidneys: No hydronephrosis. Tiny subcentimeter right renal cortical simple cyst. No suspicious enhanc ing lesions.. Stomach and Bowel: Unremarkable as visualized. Peritoneum: No evidence of pneumoperitoneum, free fluid, or adenopathy. Vasculature: Unremarkable. No aortic aneurysm. Abdominal wall: Postsurgical changes of the ventral abdominal wall from hernia repair with susceptibi lity artifact. Musculoskeletal: Postsurgical changes of the lumbar spine from posterior fusion involving L1-L5. IMPRESSION: Approximately 3 cystic lesions identified within the pancreas with the largest within the body measur ing 2.3 cm. None of these lesions demonstrate mural nodularity or suspicious enhancement. The largest lesion demonstrates multiseptated appearance. Etiologies include serous cystadenoma in this age grou p versus intraductal papillary mucinous neoplasms versus other. Other smaller lesions probably repres ent side branch intraductal papillary mucinous neoplasms versus other etiologies. Recommend endoscopi c ultrasound and aspiration of the largest lesion versus follow-up MRI in 6 months. [facility], , 07/25/2024 7:33 PM
== END | disposition home or self-care (01) ==
LOC: RADMRIMAIN 16:13
PROVIDERS: ATTEND Internal Medicine Gastroenterology
DX: R93.5 Abnormal findings on diagnostic imaging of other abdominal regions, including retroperitoneum (principal)
CPT/HCPCS: 74183; A9585

== ENCOUNTER → 2024-10-09 | Outpatient (CLI) | payer MEDICARE ==
--- NOTE | 2024-10-09 17:36 | MM ---
Reason for Exam: Screening (asymptomatic). Last mammogram was performed 1 year(s) and 5 month(s) ago. Patient History: Menarche at age 15. Patient has no children. Postmenopausal. 2003, Bilateral Reduction. Risk Values: Ayde 5 year model risk: 1.9%. NCI Lifetime model risk: 3.7%. Prior Study Comparison: 05/23/2021 Bilateral Screening Mammogram, [facility]. 05/24/2022 Bilateral MG 3D screening mammo w/cad, [facility]. 05/25/2023 Bilateral MG 3D screening mammo w/cad, [facility]. Tissue Density: The breasts are almost entirely fatty. Findings: Analyzed By CAD. There is no suspicious group of microcalcifications or new suspicious mass in either breast. Overall Assessment: Negative, BI-RAD 1 Management: Screening Mammogram of both breasts in 1 year. Patient should continue monthly self-breast exams. A clinical breast exam by your physician is recommended on an annual basis. This exam should not preclude additional follow-up of suspicious palpable abnormalities. Note on Ayde scores and lifetime risk: 1. A Ayde score greater than 3% is considered moderate risk. If this is the case, consider specialist referral to assess eligibility for a risk reducing agent. 2. If overall lifetime risk for the development of breast cancer is 20% or higher, the patient may qualify for future screening with alternating mammogram and breast MRI. [facility], , 10/09/2024 5:33 PM. Electronically signed and approved by: Michelle Sánchez M.D. Radiologist
== END | disposition home or self-care (01) ==
LOC: RADMAMWWP 14:17
PROVIDERS: ATTEND Family Medicine
DX: Z12.31 Encounter for screening mammogram for malignant neoplasm of breast (principal); R92.313 Mammographic fatty tissue density, bilateral breasts; Z78.0 Asymptomatic menopausal state
CPT/HCPCS: 77063; 77067